=== PATIENT | male | born 1960 | race Caucasian/White ===

== ENCOUNTER → 2020-08-04 12:32 | Outpatient (BNVA) | payer OTHER, SELFPAY | PROVIDERS: PCP Internal Medicine; Visit Provider Nurse Practitioner | DX: K21.9 Gastro-esophageal reflux disease without esophagitis (principal); E66.9 Obesity, unspecified; Z79.899 Other long term (current) drug therapy | CPT/HCPCS: 99213 ==

== ENCOUNTER → 2020-09-14 11:34 | Outpatient (BNVA) | payer OTHER, SELFPAY | PROVIDERS: PCP Internal Medicine; Referring Provider Internal Medicine; Visit Provider Dietitian, Registered | DX: Z76.89 Persons encountering health services in other specified circumstances (principal) ==

== ENCOUNTER 2020-11-05 06:49 | Outpatient (REF) | payer OTHER, SELFPAY ==
[2020-11-05 07:48] LABS: Alanine Aminotransferase 25 U/L (0-40); Albumin Level 4.4 g/dL (3.5-5.0); Alkaline Phosphatase 78 U/L (39-117); Anion Gap 13 (12-20); Aspartate Amino Transferase 20 U/L (5-37); Bilirubin Total 0.7 mg/dL (0.0-1.0); Blood Urea Nitrogen 21 mg/dL (9-16); Calcium 8.9 mg/dL (8.4-10.2); Carbon Dioxide 30 mmol/L (22-29); Chloride 100 mmol/L (96-108); Cholesterol 187 mg/dL; Estimated Glomerular Filt Rate > 60; Glucose Fasting 92 mg/dL (60-99); HDL Cholesterol 35 mg/dL; LDL Cholesterol Calculated 116 mg/dl; Potassium 3.5 mmol/l (3.3-5.1); Sodium 139 mmol/L (135-145); Total Protein 6.9 g/dL (6.5-8.0); Triglycerides 180 mg/dL
[2020-11-05 08:09] LABS: TSH reflex Free T4 0.22 mIU/mL (0.32-4.0)
[2020-11-05 08:42] LABS: Free T4 (Free Thyroxine) 1.16 ng/dL (0.71-1.85)
== END 2020-11-05 06:50 | disposition home or self-care (01) ==
LOC: HO.LAB 06:49
PROVIDERS: Visit Provider Internal Medicine
DX: E78.00 Pure hypercholesterolemia, unspecified (principal); E06.3 Autoimmune thyroiditis
CPT/HCPCS: 36415; 80053; 80061; 84439; 84443

== ENCOUNTER → 2020-11-24 09:15 | Outpatient (BNVA) | payer OTHER, SELFPAY | PROVIDERS: PCP Internal Medicine; Visit Provider Nurse Practitioner | DX: Z13.89 Encounter for screening for other disorder (principal) | CPT/HCPCS: Q3014 ==

== ENCOUNTER 2020-12-06 11:13 | Outpatient (REF) | payer OTHER, SELFPAY | END 2020-12-06 11:14 | disposition home or self-care (01) | LOC: HO.LAB 11:13 | PROVIDERS: PCP Internal Medicine; Visit Provider Internal Medicine | DX: Z20.822 Contact with and (suspected) exposure to COVID-19 (principal) | CPT/HCPCS: 36415; C9803; U0003; U0005 ==

== ENCOUNTER 2020-12-28 13:34 | Outpatient (REF) | payer OTHER, SELFPAY | END 2020-12-28 13:35 | disposition home or self-care (01) | LOC: HO.LAB 13:34 | PROVIDERS: Visit Provider Internal Medicine | DX: Z20.822 Contact with and (suspected) exposure to COVID-19 (principal) | CPT/HCPCS: 36415; C9803; U0003; U0005 ==

== ENCOUNTER → 2021-01-07 10:41 | Outpatient (BNVA) | payer OTHER, SELFPAY | PROVIDERS: PCP Internal Medicine; Visit Provider Student in an Organized Health Care Education/Training Program | DX: M54.42 Lumbago with sciatica, left side (principal) | CPT/HCPCS: 99212 ==

== ENCOUNTER 2021-01-18 10:17 | Outpatient (REF) | payer OTHER, SELFPAY ==
--- NOTE | ~2021-01-18 | XR_ITS ---
EXAMINATION: XR LUMBOSACRAL SPINE CLINICAL INFORMATION: Low back pain COMPARISON: Previous x-ray July 2019 TECHNIQUE: Three views of the lumbosacral spine. FINDINGS: Bone alignment is normal. No fracture or dislocation is seen. There is multilevel degenerative spondylosis and degenerative disc disease from L1-L2 to L4-L5. There is lower lumbar spine facet arthritis. XR/XR lumbar spine 2-3V IMPRESSION: Degenerative changes.
[2021-01-18 13:08] LABS: MANUAL DIFF FLAG NO
[2021-01-18 13:19] LABS: Basophils Percent Auto 0.5 % (0-2); Eosinophils Absolute Auto 0.2 X10*3/uL (0.0-0.4); Eosinophils Percent Auto 2.8 % (0-4); Hematocrit 44.8 % (42-52); Hemoglobin 15.5 g/dl (14.0-18.0); Imm Gran Abs Auto 0.04 X10*3/uL (0.00-0.03); Imm Gran Pct Auto 0.5 % (0.0-0.4); Lymphocytes Absolute Auto 2.6 X10*3/uL (1.2-4.9); Lymphocytes Percent Auto 34.5 % (20-40); Mean Corpuscular HGB Conc 34.6 g/dl (31.0-36.0); Mean Corpuscular Volume 92.6 fL (80-98); Monocytes Absolute Auto 0.6 X10*3/uL (0.1-1.2); Monocytes Percent Auto 7.9 % (2-11); Neutrophils Absolute Auto 4.1 X10*3/uL (2.0-8.3); Neutrophils Percent Auto 53.8 % (45-73); Platelet Count 199 X10*3/uL (160-400); Red Blood Count 4.84 X10*6/uL (4.60-5.80); Red Cell Distribution Width 11.7 % (11.0-16.0); White Blood Count 7.6 X10*3/uL (4.8-10.8)
[2021-01-18 13:40] LABS: Blood Urea Nitrogen 17 mg/dL (9-16); Estimated Glomerular Filt Rate > 60
[2021-01-18 13:59] LABS: PSA,Total (Free>4and<10) 2.55 ng/mL (0.00-4.00); TSH reflex Free T4 1.15 uIU/mL (0.32-4.0)
== END 2021-01-18 10:18 | disposition home or self-care (01) ==
LOC: HO.XRAY 10:17
PROVIDERS: Nurse Practitioner; PCP Internal Medicine; Visit Provider Student in an Organized Health Care Education/Training Program
DX: M54.42 Lumbago with sciatica, left side (principal); R10.32 Left lower quadrant pain; E03.9 Hypothyroidism, unspecified; K21.9 Gastro-esophageal reflux disease without esophagitis; R14.0 Abdominal distension (gaseous); E66.9 Obesity, unspecified; K59.01 Slow transit constipation; R41.3 Other amnesia
CPT/HCPCS: 36415; 72100; 82565; 84153; 84443; 84520; 85025; 99212

== ENCOUNTER → 2021-02-02 12:45 | Outpatient (BNVA) | payer OTHER, SELFPAY | PROVIDERS: PCP Internal Medicine; Visit Provider Nurse Practitioner | DX: R10.32 Left lower quadrant pain (principal); R14.0 Abdominal distension (gaseous); R41.3 Other amnesia; K21.9 Gastro-esophageal reflux disease without esophagitis; E66.9 Obesity, unspecified; Z68.31 Body mass index [BMI] 31.0-31.9, adult; Z71.3 Dietary counseling and surveillance | CPT/HCPCS: 99212 ==

== ENCOUNTER 2021-02-22 09:33 | Outpatient (REF) | payer OTHER, SELFPAY ==
[2021-02-22 10:24] LABS: Blood Urea Nitrogen 16 mg/dL (9-16); Estimated Glomerular Filt Rate > 60
== END 2021-02-22 09:34 | disposition home or self-care (01) ==
LOC: HO.LAB 09:33
PROVIDERS: PCP Internal Medicine; Visit Provider Nurse Practitioner
DX: R10.32 Left lower quadrant pain (principal)
CPT/HCPCS: 36415; 82565; 84520

== ENCOUNTER → 2021-02-23 09:35 | Outpatient (BNVA) | payer OTHER, SELFPAY | PROVIDERS: Visit Provider Internal Medicine Endocrinology, Diabetes & Metabolism | DX: E03.8 Other specified hypothyroidism (principal); E06.3 Autoimmune thyroiditis | CPT/HCPCS: 99212 ==

== ENCOUNTER 2021-02-23 10:38 | Outpatient (REF) | payer OTHER, SELFPAY ==
[2021-02-23 13:43] LABS: Free T4 (Free Thyroxine) 1.09 ng/dL (0.71-1.85); Thyroid Stimulating Hormone 0.62 uIU/mL (0.32-4.0)
[2021-02-24 08:22] LABS: Triiodothyronine T3 Total 91 ng/dL (76-181)
== END 2021-02-23 10:39 | disposition home or self-care (01) ==
LOC: HO.10HDL 10:38
PROVIDERS: Visit Provider Internal Medicine Endocrinology, Diabetes & Metabolism
DX: E03.8 Other specified hypothyroidism (principal); E06.3 Autoimmune thyroiditis
CPT/HCPCS: 36415; 84439; 84443; 84480

== ENCOUNTER 2021-03-03 09:06 | Outpatient (REF) | payer OTHER, SELFPAY ==
--- NOTE | ~2021-03-03 | CT_ITS ---
EXAMINATION: CT ABDOMEN AND PELVIS WITH CONTRAST CLINICAL INFORMATION: Left lower quadrant pain COMPARISON: None TECHNIQUE: Multidetector volumetric images were obtained from the superior aspect of the liver through the pubic symphysis following administration 85 mL of Omnipaque 350 intravenous contrast. Sagittal and coronal reformatted images were obtained on the technologist's workstation. Oral contrast: No This CT examination was performed using dose optimization techniques as appropriate, variously including the following: *Automated exposure control *Adjustment of mA and/or kV according to patient size (this includes techniques or standardized protocols for targeted exams where dose is matched to indication/reason for exam; i.e. extremities or head) *Use of iterative reconstruction technique DLP: 85 mGy-cm FINDINGS: LUNG BASES: The lung bases are clear. The heart size is normal. There are abnormal draining vein right lower lobe on axial image 14 through 18/5. It is unchanged to previous study 11/18/2016. LIVER, GALLBLADDER, AND BILIARY TREE: The liver is normal in size, shape, and attenuation. No focal hepatic lesion or biliary ductal dilatation is present. The gallbladder is unremarkable with no evidence of radiopaque gallstones, gallbladder wall thickening, or obvious pericholecystic inflammatory changes. PANCREAS: Unremarkable. SPLEEN: Unremarkable. ADRENAL GLANDS: Unremarkable. KIDNEYS AND URETERS: The kidneys are normal in size, shape, and attenuation. No hydronephrosis, hydroureter, or calculi seen. No perinephric stranding. BLADDER: Unremarkable. GASTROINTESTINAL TRACT: There is a moderate amount of stool seen throughout the colon especially in the transverse colon without any distention or mural thickening. Oral contrast in the distal small bowel loops are noted with no distention. The stomach is nondistended. ABDOMINAL WALL: There is moderate-sized umbilical hernia containing fat. LYMPH NODES: Normal. VASCULAR: Unremarkable. PELVIC VISCERA: The prostate gland is mildly enlarged. The periprostatic fat planes are preserved. OSSEOUS STRUCTURES: There are degenerative disc changes with vacuum disc phenomena L2-L3, L3-L4 and L4-L5 disc levels. No visible fracture or lytic process seen. CT/CT abdomen pelvis w con IMPRESSION: Moderate to significant constipation. No obstruction seen. Small umbilical hernia with intraperitoneal fat. Prominent left draining vein right lower lobe. Question Small AVM. It is unchanged to previous study. No major change compared to previous study 11/18/2016
[2021-03-03] MEDS: Barium Sulfate Oral (Vanilla) 450 ML ORAL.SUSP 900 ML PO (11:27)
[2021-03-03] MEDS: iohexoL 350 MG/ML 100 ML INFUS..BTL IV (11:28)
== END 2021-03-03 09:07 | disposition home or self-care (01) ==
LOC: HO.CT 09:06
PROVIDERS: Visit Provider Nurse Practitioner
DX: R10.32 Left lower quadrant pain (principal)
CPT/HCPCS: 74177; Q9967

== ENCOUNTER → 2021-03-14 10:53 | Outpatient (BNVA) | payer OTHER, SELFPAY | PROVIDERS: PCP Internal Medicine; Visit Provider Dietitian, Registered | DX: E66.9 Obesity, unspecified (principal) | CPT/HCPCS: 97803 ==

== ENCOUNTER → 2021-03-15 08:34 | Outpatient (BNVA) | payer OTHER, SELFPAY | PROVIDERS: PCP Internal Medicine; Visit Provider Nurse Practitioner | DX: R10.32 Left lower quadrant pain (principal); Z12.11 Encounter for screening for malignant neoplasm of colon; R14.0 Abdominal distension (gaseous); R10.9 Unspecified abdominal pain; K21.9 Gastro-esophageal reflux disease without esophagitis; R41.3 Other amnesia; K59.04 Chronic idiopathic constipation | CPT/HCPCS: Q3014 ==

== ENCOUNTER 2021-03-23 12:34 | Emergency (ER) | payer OTHER, SELFPAY ==
[2021-03-23 13:53] VITALS: BP 120/87; PULSE 85; RESP 16; TEMP 36.6; O2SAT 99; BMI 29.6
--- NOTE | 2021-03-23 14:48 | ED.BACK ---
HPI - Back Pain/Injury General Chief Complaint: Back Pain/Injury Stated Complaint: NECK PAIN Time Seen by Provider: 03/23/21 14:48 History of Present Illness HPI Narrative: Patient complains of upper back pain and lower back pain worst when he is gardening and bending and standing up, no numbness no weakness no tingling Second complaint is for a long time he has felt mildly dizzy when he stands up quickly and his doctor has advised him to stand up slowly he is not dizzy now and denies any chest pain or shortness of breath he has acted had any fainting he has no feeling of movement or vertigo and he never feels like he will faint Related Data Home Medications Medication Instructions Recorded Confirmed loratadine 10 mg tablet 10 mg PO DAILY 12/07/20 04/01/21 pravastatin 20 mg tablet 20 mg PO DAILY 01/07/21 04/01/21 betamethasone dipropionate 0.05 % 1 appl TOPICAL TID PRN 02/02/21 04/01/21 topical cream Previous Rx's Medication Instructions Recorded terbinafine HCl 250 mg tablet 250 mg PO DAILY 90 Days #90 tab 11/09/20 omeprazole 20 mg capsule,delayed 20 mg PO DAILY 30 Days #30 cap 11/24/20 release hydrochlorothiazide 25 mg tablet 25 mg PO DAILY 90 Days #90 tab 11/26/20 clotrimazole 1 % topical cream 1 appl TOPICAL BID 14 Days #30 g 12/07/20 lidocaine 3 %-hydrocortisone 0.5 % 1 appl GA BID 30 Days #98 g 12/07/20 rectal cream sildenafil 50 mg tablet 50 mg PO DAILY PRN 3 Days #3 tab 12/07/20 dicyclomine 20 mg tablet 20 mg PO TID 30 Days #90 tab 12/29/20 docusate sodium 100 mg capsule 100 mg PO DAILY 30 Days #30 cap 01/18/21 gabapentin 300 mg capsule 300 mg PO BEDTIME #30 cap 02/09/21 levothyroxine 100 mcg tablet 100 mcg PO DAILY 90 Days #90 tab 02/23/21 zvmffj-cccsbnhg-imdepot 1 cap PO QID 30 Days #120 cap 03/08/21 24,000-76,000-120,000 unit capsule,delayed rel simethicone 180 mg capsule 180 mg PO QID 30 Days #120 cap 03/08/21 bisacodyl 5 mg tablet,delayed 10 mg PO BEDTIME 2 Days #4 tab 03/15/21 release peg 3350-electrolytes 236 240 ml PO Q10M 1 Days #4000 ml 03/15/21 gram-22.74 gram-6.74 gram-5.86 gram solution plecanatide 3 mg tablet 3 mg PO DAILY 30 Days #30 tab 03/15/21 cyclobenzaprine 5 mg PO TID PRN #14 tab 03/23/21 naproxen [Naprosyn] 500 mg PO BID PRN #14 tab 03/23/21 escitalopram oxalate 10 mg tablet 10 mg PO DAILY 90 Days #90 tab 03/29/21 Allergies Allergy/AdvReac Type Severity Reaction Status Date / Time amlodipine Allergy Intermediate leg edema Verified 04/06/21 11:50 carisoprodol [From SOMA] Allergy Intermediate twitching Verified 04/06/21 11:50 jennyfer inhibitors AdvReac Intermediate cough, Verified 04/06/21 11:50 anxiety Review of Systems Review of Systems: Positive for upper back pain Negatives are no fainting no feeling faint no headache no numbness weakness or tingling no changes to bowel or bladder no chest pain no palpitations no shortness of breath no abdominal pain no nausea vomiting or diarrhea no skin rash no numbness or weakness no confusion Yes all other systems are reviewed and are negative PMFSH Past Medical History Source: nursing notes reviewed Medical History (Updated 04/05/21 @ 09:39 by Rosaura Jameson) Depression with anxiety Erectile dysfunction Essential hypertension GERD (gastroesophageal reflux disease) Hypothyroidism Neck pain Obesity Onychomycosis Scoliosis Umbilical hernia Surgical History (Updated 04/01/21 @ 10:31 by Susu Luna) Hx of colonoscopy (~2009) Status post excision of lipoma Family History Family History Father HTN (hypertension) Mother HTN (hypertension) Hypercholesteremia Family/Other HTN (hypertension) Thyroid disease Diabetes FH: mental illness Daughter Thyroid disease Son No problems noted. Brother Substance abuse Social History Social History Household Members: None Alcohol intake: current Alcohol intake frequency: a few times a month Alcohol type: beer Patient Tobacco Use Status: Never used Tobacco e-Cigarette/Vaping Use: Never Used Second Hand Smoke Exposure: No Physical Exam Vital Signs: Vital Signs: Last Vital Signs Temp 97.8 F 03/23/21 13:53 Pulse 85 03/23/21 13:53 Resp 16 03/23/21 13:53 BP 120/87 03/23/21 13:53 Pulse Ox 99 03/23/21 13:53 Body Mass Index 29.6 General appearance is no acute distress The head is normocephalic atraumatic Neck is supple and nontender The chest is clear to auscultation bilateral Heart no murmur Abdomen soft nontender The back there is bilateral trapezius as well as bilateral upper soft tissue paraspinal back pain reproducible with movement, skin is normal no rashes There is no CVA tenderness there is no focal bony tenderness Extremities is full range of motion x4 Skin no rash Neuro no gross motor or sensory deficit, A&O x3, gait and balance are normal, speech both expression and understanding are normal Course Course Course Narrative: Patient with 2 complaints 1 is upper back pain he is prescribed analgesic and muscle relaxer and will follow with his doctor for further evaluation and possible physical therapy Longstanding mild dizziness when he stands up too quickly he is advised to be well-hydrated and to stand up slowly and if he is dizzy sit back down In the ER he is not dizzy and he has no dizziness on standing, he says this occurs mostly when he was gardening outside and is likely from mild vasovagal symptoms or dehydration Discharge Plan Discharge Clinical Impression: Back pain Patient Disposition: Home, Self-Care Prescriptions: New naproxen [Naprosyn] 500 mg tablet 500 mg PO BID PRN (Reason: pain) Qty: 14 RF: 0 cyclobenzaprine 5 mg tablet 5 mg PO TID PRN (Reason: muscle spasm) Qty: 14 RF: 0 No Action hydrochlorothiazide 25 mg tablet 25 mg PO DAILY 90 Days Qty: 90 RF: 3 dicyclomine 20 mg tablet 20 mg PO TID 30 Days Qty: 90 RF: 1 gabapentin 300 mg capsule 300 mg PO BEDTIME Qty: 30 RF: 3 loratadine 10 mg tablet 10 mg PO DAILY RF: 0 clotrimazole [Itch Relief (clotrimazole)] 1 % cream 1 appl topical BID 14 Days Qty: 30 RF: 2 lidocaine HCl-hydrocortison ac 3-0.5 % cream 1 appl GA BID 30 Days Qty: 98 RF: 3 sildenafil 50 mg tablet 50 mg PO DAILY PRN (Reason: sexual activity) 3 Days Qty: 3 RF: 3 terbinafine HCl 250 mg tablet 250 mg PO DAILY 90 Days Qty: 90 RF: 0 simethicone 180 mg capsule 180 mg PO QID 30 Days Qty: 120 RF: 3 Creon 24,000-76,000 -120,000 unit capsule,delayed release(DR/EC) 1 cap PO QID 30 Days Qty: 120 RF: 4 escitalopram oxalate 10 mg tablet 10 mg PO DAILY 90 Days Qty: 90 RF: 1 betamethasone dipropionate 0.05 % cream 1 appl topical TID PRN (Reason: Itching) RF: 0 docusate sodium [Colace] 100 mg capsule 100 mg PO DAILY 30 Days Qty: 30 RF: 3 pravastatin 20 mg tablet 20 mg PO DAILY RF: 0 Trulance 3 mg tablet 3 mg PO DAILY 30 Days Qty: 30 RF: 6 bisacodyl [Dulcolax (bisacodyl)] 5 mg tablet,delayed release (DR/EC) 10 mg PO BEDTIME 2 Days Qty: 4 RF: 0 peg 3350-electrolytes [Golytely] 236-22.74-6.74 -5.86 gram recon soln 240 ml PO Q10M 1 Days Qty: 4000 RF: 0 omeprazole 20 mg capsule,delayed release(DR/EC) 20 mg PO DAILY 30 Days Qty: 30 RF: 6 levothyroxine 100 mcg tablet 100 mcg PO DAILY 90 Days Qty: 90 RF: 2 Interventions: ED Discharge Assessment Last Done: 03/23/21 16:08 Discharge Date/Time: 03/23/21 16:09
== END 2021-03-23 16:09 | disposition home or self-care (01) ==
PROVIDERS: Emergency Provider Emergency Medicine; PCP Internal Medicine
DX: M54.6 Pain in thoracic spine (principal); M54.5 Low back pain; I10 Essential (primary) hypertension; M41.9 Scoliosis, unspecified
CPT/HCPCS: 99283

== ENCOUNTER 2021-04-06 10:46 | Day surgery (SDC) | payer OTHER, SELFPAY ==
[2021-04-01 10:34] VITALS: BMI 29.7
--- NOTE | 2021-04-05 09:37 | P.CONAN_ITS ---
Documented by User: Rosaura Jameson 04/05/21 09:40 HPI - Anesthesia Eval Consult details Narrative: 60yo M for Colonoscopy PMFSH Active Problems Active Problems: All Active Problems (Updated 03/29/21 @ 14:52 by Cindy Llanes MD) GERD (gastroesophageal reflux disease) (Acute) Obesity (Acute) Abdominal cramping (Acute) Lumbago with sciatica, left side (Acute) Abdominal bloating (Acute) LLQ pain (Acute) Uncompensated short term memory deficit (Acute) Chronic idiopathic constipation (Acute) Colon cancer screening (Acute) Depression with anxiety (Acute) Neck pain (Acute) Umbilical hernia (Acute) Erectile dysfunction (Acute) Onychomycosis (Acute) Essential hypertension (Acute) Hypothyroidism (Acute) Past Medical History Medical History (Updated 04/05/21 @ 09:39 by Rosauar Jameson) Depression with anxiety Erectile dysfunction Essential hypertension GERD (gastroesophageal reflux disease) Hypothyroidism Neck pain Obesity Onychomycosis Scoliosis Umbilical hernia Family History Family History Father HTN (hypertension) Mother HTN (hypertension) Hypercholesteremia Family/Other HTN (hypertension) Thyroid disease Diabetes FH: mental illness Daughter Thyroid disease Son No problems noted. Brother Substance abuse Surgical History Surgical History (Updated 04/01/21 @ 10:31 by Susu Luna) Hx of colonoscopy (~2009) Status post excision of lipoma Social History Social History Household Members: None Alcohol intake: current Alcohol intake frequency: a few times a month Alcohol type: beer Patient Tobacco Use Status: Never used Tobacco e-Cigarette/Vaping Use: Never Used Second Hand Smoke Exposure: No Advance Directives: No Advance Directives Information Provided: Yes Meds Allergies Allergy/AdvReac Type Severity Reaction Status Date / Time amlodipine Allergy Intermediate leg edema Verified 04/06/21 11:50 carisoprodol [From SOMA] Allergy Intermediate twitching Verified 04/06/21 11:50 jennyfer inhibitors AdvReac Intermediate cough, Verified 04/06/21 11:50 anxiety Home Medications Medication Instructions Recorded Confirmed Last Taken Type loratadine 10 mg tablet 10 mg PO DAILY 12/07/20 04/01/21 Unknown History pravastatin 20 mg tablet 20 mg PO DAILY 01/07/21 04/01/21 Unknown History betamethasone dipropionate 0.05 % 1 appl TOPICAL TID PRN 02/02/21 04/01/21 Unknown History topical cream Exam Exam Date and Time: April 05, 2021 0937 Height,Weight and Vital Signs: Height 5 ft 7 in Weight 86.183 kg Pertinent Lab Results Pertinent Lab Results: Laboratory Tests 11/05/20 01/18/21 02/22/21 07:00 12:42 09:43 WBC 7.6 Hgb 15.5 Hct 44.8 Plt Count 199 Sodium 139 Potassium 3.5 Chloride 100 Carbon Dioxide 30 H BUN 16 Creatinine 1.15 Assessment and Plan Assessment Anesthesia Assessment: Chart Reviewed Documented by User: Kendra Coyle 04/06/21 13:20 [facility] Past Medical History Medical History (Updated 04/05/21 @ 09:39 by Rosaura Jameson) Depression with anxiety Erectile dysfunction Essential hypertension GERD (gastroesophageal reflux disease) Hypothyroidism Neck pain Obesity Onychomycosis Scoliosis Umbilical hernia Family History Family History Father HTN (hypertension) Mother HTN (hypertension) Hypercholesteremia Family/Other HTN (hypertension) Thyroid disease Diabetes FH: mental illness Daughter Thyroid disease Son No problems noted. Brother Substance abuse Surgical History Surgical History (Updated 04/01/21 @ 10:31 by Susu Luna) Hx of colonoscopy (~2009) Status post excision of lipoma Social History Social History Household Members: None Alcohol intake: current Alcohol intake frequency: a few times a month Alcohol type: beer Patient Tobacco Use Status: Never used Tobacco e-Cigarette/Vaping Use: Never Used Second Hand Smoke Exposure: No Advance Directives: No Advance Directives Information Provided: Yes Meds Allergies Allergy/AdvReac Type Severity Reaction Status Date / Time amlodipine Allergy Intermediate leg edema Verified 04/06/21 11:50 carisoprodol [From SOMA] Allergy Intermediate twitching Verified 04/06/21 11:50 jennyfer inhibitors AdvReac Intermediate cough, Verified 04/06/21 11:50 anxiety Home Medications Medication Instructions Recorded Confirmed Last Taken Type loratadine 10 mg tablet 10 mg PO DAILY 12/07/20 04/01/21 Unknown History pravastatin 20 mg tablet 20 mg PO DAILY 01/07/21 04/01/21 Unknown History betamethasone dipropionate 0.05 % 1 appl TOPICAL TID PRN 02/02/21 04/01/21 Unknown History topical cream Exam Airway Mallampati Class: II (Missing couple teeth) TM Dist: >3cm Neck ROM: Full Heart: rrr Lungs: cta Assessment and Plan Assessment Anesthesia Assessment: Anesthesia Plan Discussed and Chart Reviewed Final Anesthetic Review NPO: Yes ASA Class: II Final Preanesthetic Review: No Changes in Pt Med Stat and Consent Obtained/ Reviewed Patient Risk: Intermediate Procedure Risk: Intermediate Anesthetic Plan Anesthetic Plan: GA Disposition: Standard PACU
--- NOTE | 2021-04-06 11:37 | MHC.SHP ---
Pre-Procedural Eval Section B Chief Complaint: Screening Relevant Family History (Specify if Yes): No Relevant Social History: None Present Medications: see Short Stay Collaborative assessment Medical History: Significant History ( Depression with anxiety Erectile dysfunction Essential hypertension GERD (gastroesophageal reflux disease) Hypothyroidism Neck pain Obesity Onychomycosis Scoliosis Umbilical hernia) History of Previous Operations: Relevant previous surgery/procedure and date(s) (lipoma removal) Allergies: Allergies Allergy/AdvReac Type Severity Reaction Status Date / Time amlodipine Allergy Intermediate leg edema Verified 03/29/21 13:13 carisoprodol [From SOMA] Allergy Intermediate twitching Verified 03/29/21 13:13 jennyfer inhibitors AdvReac Intermediate cough, Verified 04/01/21 10:26 anxiety Review of Systems Sugical H&P ROS: Negative: Constitution, Cardiovascular, Respiratory, Neurological, Psychiatric, Hem-Onc, Allergic/Immunologic, Gastrointestinal, Genitourinary, Musculoskeletal, Integumentary, Endocrine and Eyes/Ears/Nose/Throat Exam Surgical H&P Exam: Normal: HEENT, Normal: Heart, Normal: Lungs, Normal: Extremities, Normal: Abdomen, Normal: Skin and Normal: Neurological Plan Diagnosis/Plan: Unchanged I have reviewed the history and physical and performed a pertinent physical examination on my patient. No changes have occurred unless specified.
[2021-04-06 11:46] VITALS: BP 141/83; PULSE 88; RESP 18; TEMP 36.8; O2SAT 97
[2021-04-06] MEDS: Lactated Ringers 1,000 ML 100 ML IVCONT (11:54)
--- NOTE | 2021-04-06 13:02 | PM.OP ---
Brief Operative Note Date of Service: 04/06/21 Pre-op diagnosis: colon screening Post-op diagnosis: same Procedure: see op note Surgeon: Constantine Edward MD Anesthesia: MAC Was an Home Theatre Technician used for this Procedure?: No Estimated blood loss (mL): 0 Condition: stable Disposition: PACU
--- NOTE | 2021-04-06 13:03 | W.PM.OPN ---
Operative Note Operative Note Date of Service: 04/06/21 Narrative: Operative Information Procedure Description: Colonoscopy COLONOSCOPY Instrument: Olympus variable stiffness pediatric scope 190L Colonoscopy Monitoring: Vital signs and clinical assessment, continuous EKG monitoring, Pulse oximetry, Carbon Dioxide monitoring and blood pressure monitoring were done throughout the procedure. Colon withdrawal time was 32 minutes. Procedure: The patient was placed in the left lateral decubitis position and pre-procedure medications were administered. After a digital rectal examination of the ano-rectum, the video colonoscope was inserted into the rectum and advanced through the colon to the cecum/TI. The colonoscope was slowly withdrawn in a retrograde panoramic fashion and the colon mucosa was carefully examined including a retroflexed view of the rectum. Findings and interventions are described below. Procedure Difficulty:easy Findings: Terminal Ileum-normal Cecum:normal Ascending Colon: x 3 sessile polyps only seen on retroflexion noted, largest measured about 15 mm and removed piece meal with combination of hot and cold snare polypectomy,Tthe other smaller polyps about 10 mm removed with cold snare. Transverse Colon -normal Descending Colon:normal Sigmoid Colon: normal Rectum: Retroflexion with moderate sized internal hemorrhoids, grade II, x 2 sessile polyps 8-10 mm removed with forceps Anorectum - normal Colon preparation: Speculator Bowel Preparation Scale Right colon; 2 Transverse colon: 3 Left colon; 3 (0 = Unprepared colon segment with mucosa not seen due to solid stool that cannot be cleared. 1 = Portion of mucosa of the colon segment seen, but other areas of the colon segment not well seen due to staining, residual stool and/or opaque liquid. 2 = Minor amount of residual staining, small fragments of stool and/or opaque liquid, but mucosa of colon segment seen well. 3 = Entire mucosa of colon segment seen well with no residual staining, small fragments of stool or opaque liquid) Impression and Post Procedure Diagnosis: polyps internal hemorrhoids Plan: High fiber diet leaflet Avoid straining at stool, epsom salts and sitz bath, anusol supps or cream as needed Repeat Colonoscopy in 1-2 years or earlier if clinically indicated Above findings were reviewed with the patient and relevant handouts were provided if indicated.
[2021-04-06 13:56] VITALS: BP 102/61; PULSE 74; RESP 16; TEMP 36.6; O2SAT 95
[2021-04-06 14:11] VITALS: BP 124/84; PULSE 75; RESP 16; O2SAT 97
== END 2021-04-06 15:30 | disposition home or self-care (01) ==
PROVIDERS: PCP Internal Medicine; Visit Provider Internal Medicine Gastroenterology
PROC: 0DJD8ZZ Inspection of Lower Intestinal Tract, Via Natural or Artificial Opening Endoscopic (ICD-10-PCS; CPT 45378; principal; 2021-04-06 13:10)
DX: Z12.11 Encounter for screening for malignant neoplasm of colon (principal); D12.2 Benign neoplasm of ascending colon; D12.8 Benign neoplasm of rectum; K64.1 Second degree hemorrhoids; K59.09 Other constipation; I10 Essential (primary) hypertension; Z79.899 Other long term (current) drug therapy; Z88.8 Allergy status to other drugs, medicaments and biological substances
CPT/HCPCS: 45385; 45380; 88305

== ENCOUNTER → 2021-04-28 15:56 | Outpatient (BNVA) | payer OTHER, SELFPAY | PROVIDERS: Visit Provider Nurse Practitioner | DX: D36.9 Benign neoplasm, unspecified site (principal); R10.32 Left lower quadrant pain; R14.0 Abdominal distension (gaseous); R41.3 Other amnesia; K21.9 Gastro-esophageal reflux disease without esophagitis; K59.04 Chronic idiopathic constipation | CPT/HCPCS: 99212 ==

== ENCOUNTER → 2021-05-26 08:38 | Outpatient (BNVA) | payer OTHER, SELFPAY | PROVIDERS: PCP Internal Medicine; Visit Provider Nurse Practitioner | CPT/HCPCS: Q3014 ==

== ENCOUNTER 2021-06-02 10:00 | Outpatient (RCR) | payer OTHER, SELFPAY ==
--- NOTE | 2021-05-12 12:45 | MHC.PT.EP ---
[facility] [place] Office [place] Office [place] Office [address] Huan Riggins [address] [phone] F: [phone] F: [phone] F: [phone] F: [phone] Physical Therapy Plan of Care Date of Evaluation: Date of Surgery: N/A Diagnosis: cervicalgia Assessment: 60 y/o M referred for cervicalgia presents with s/sx consistent with postural dysfunction leading to increased forward head posture. Pt complains of pain and difficulty with moving his head in all directions, completing gardening tasks including raking, and sleeping. Examination shows limited cervical ROM, increased pain and sx with R cervical rotation and lateral flexion, decreased shoulder abduction L>R AROM, and decreased strength of scapular muscles. Recommend PT 2x/week for 5 weeks to address impairments, implement HEP, and optimize functional mobility. Frequency and Duration: The patient will be seen 2x/week for 5 weeks Short Term Goals: 2 weeks: 1. I with HEP 2. Pt will demonstrate increased cervical ROM in all directions by >5 degrees with <3/10 pain Retirement Goals: 5 weeks: 1. I with HEP and self-management of sx 2. Pt will be able to garden for >1 hour with <3/10 pain 3. Pt will report sleeping through night with <3/10 pain Treatment Plan: Modalities to reduce pain, spasms and effusion. Manual therapy to restore motion and function. Therapeutic exercise to improve strength and flexibility. Neuromuscular re-education for posture and balance. Therapeutic activities to return to functional activities of daily living. Electronically signed by: Angely Melendez PT Please sign and return to therapist. Thank you for your referral.
--- NOTE | 2021-07-06 11:28 | MHC.PT.DC ---
[facility] [place] Office [place] Office [place] Office [address] Huan Riggins [address] [phone] F: [phone] F: [phone] F: [phone] F: [phone] Physical Therapy Discharge Report Diagnosis: cervicalgia Date of Surgery: N/A Date of Evaluation: 05/12/21 Date of Discharge: 07/06/21 Treatments to Date: 3 Cancellations to Date: 0 No Shows to Date: 0 Discharge Status: Improved Function Independent with HEP Discharge Summary: Pt reports feeling better and would like to be d/c. Reviewed HEP and cervical AROM WFL. D/c at this time. Electronically signed by: Angely Melendez PT Please sign and return to therapist. Thank you for your referral.
== END 2021-07-06 11:28 | disposition home or self-care (01) ==
LOC: HO.PT 10:00
PROVIDERS: PCP Internal Medicine; Visit Provider Internal Medicine
DX: M54.2 Cervicalgia (principal)
CPT/HCPCS: 97110; 97140; 97161

== ENCOUNTER → 2021-07-12 12:27 | Outpatient (BNVA) | payer OTHER, SELFPAY | PROVIDERS: Visit Provider Nurse Practitioner Family | DX: M54.42 Lumbago with sciatica, left side (principal); R21 Rash and other nonspecific skin eruption | CPT/HCPCS: 99212 ==

== ENCOUNTER 2021-07-20 18:41 | Emergency (ER) | payer OTHER, SELFPAY ==
[2021-07-20 20:01] VITALS: BP 121/73; PULSE 86; RESP 16; TEMP 36.8; O2SAT 98; BMI 29.2
--- NOTE | 2021-07-20 20:45 | ED.GENADULT ---
HPI - General Adult General Chief complaint: General Medical Stated complaint: post op bleeding Time Seen by Provider: 07/20/21 20:19 Source: patient Mode of arrival: ambulatory Limitations: no limitations History of Present Illness HPI narrative: Patient comes to emergency room complaining of postop bleeding. Patient had a circumcision yesterday at [facility]. Patient states that he has not removed the bandage that was originally placed after the surgery. Patient states that his symone is stained with blood. Patient denies significant pain. Denies dysuria Related Data Home Medications Medication Instructions Recorded Confirmed loratadine 10 mg tablet 10 mg PO DAILY 12/07/20 07/12/21 pravastatin 20 mg tablet 20 mg PO DAILY 01/07/21 07/12/21 Previous Rx's Medication Instructions Recorded hydrochlorothiazide 25 mg tablet 25 mg PO DAILY 90 Days #90 tab 11/26/20 lidocaine 3 %-hydrocortisone 0.5 % 1 appl TX BID 30 Days #98 g 12/07/20 rectal cream docusate sodium 100 mg capsule 100 mg PO DAILY 30 Days #30 cap 01/18/21 (Colace) gabapentin 300 mg capsule 300 mg PO BEDTIME #30 cap 02/09/21 levothyroxine 100 mcg tablet 100 mcg PO DAILY 90 Days #90 tab 02/23/21 plecanatide 3 mg tablet (Trulance) 3 mg PO DAILY 30 Days #30 tab 03/15/21 cyclobenzaprine 5 mg tablet 5 mg PO TID PRN #14 tab 03/23/21 naproxen 500 mg tablet (Naprosyn) 500 mg PO BID PRN #14 tab 03/23/21 escitalopram oxalate 10 mg tablet 10 mg PO DAILY 90 Days #90 tab 03/29/21 dicyclomine 20 mg tablet 20 mg PO TID 30 Days #90 tab 05/26/21 ziaevr-cmklubra-deprxkj 1 cap PO QID 30 Days #120 cap 05/26/21 24,000-76,000-120,000 unit capsule,delayed rel (Creon) omeprazole 20 mg capsule,delayed 20 mg PO DAILY 30 Days #30 cap 05/26/21 release simethicone 180 mg capsule 180 mg PO QID 30 Days #120 cap 05/26/21 sildenafil 50 mg tablet 50 mg PO DAILY PRN 3 Days #3 tab 07/06/21 valacyclovir 1 gram tablet 1,000 mg PO TID 10 Days #30 tab 07/06/21 betamethasone dipropionate 0.05 % 1 appl TOPICAL TID PRN 14 Days #15 07/12/21 topical cream g tobramycin 0.3 % eye drops 1 drp OPHTHALMIC (EYE) Q4H 7 Days 07/14/21 #5 ml Allergies Allergy/AdvReac Type Severity Reaction Status Date / Time amlodipine Allergy Intermediate leg edema Verified 07/20/21 20:01 carisoprodol [From SOMA] Allergy Intermediate twitching Verified 07/20/21 20:01 jennyfer inhibitors AdvReac Intermediate cough, Verified 07/20/21 20:01 anxiety Review of Systems Review of Systems: Constitutional : No Weight loss, No Fever, No Chills, No Night Sweats, No Fatigue, No Malaise ENT/Mouth : No Hearing loss, No Ear Pain, No Nasal Congestion, No Sinus Pain, No Hoarseness, No sore throat, No Rhinorrhea, No Swallowing Difficulty Eyes: No Eye Pain, No Swelling, No Redness, No Foreign Body, No Discharge, No Vision Changes Cardiovascular : No Chest Pain, No SOB, No Dyspnea on Exertion, No Orthopnea, No Edema, No Palpitations Respiratory : No Cough, No Sputum, No Wheezing, No Smoke Exposure, No Dyspnea Gastrointestinal : No Nausea, No Vomiting, No Diarrhea, No Constipation, No abdominal Pain, No Hematochezia, No Melena Genitourinary : No dysuria. Complaining of postop bleeding from the circumcision site Musculoskeletal : No joint pain, No Myalgias, No Joint Swelling Skin : No Skin Lesions, No rash Neuro : No Weakness, No Numbness, No Paresthesias, No Loss of Consciousness, No Dizziness, No Headache Psych : No Anxiety/Panic, No Depression, No SI/HI/AH/VH, No Social Issues, Heme/Lymph: No Bruising, No Bleeding,No Lymphadenopathy Endocrine : No Polyuria, No Polydipsia, No Temperature Intolerance PMFSH Past Medical History Medical History Depression with anxiety Erectile dysfunction Essential hypertension EMILY (generalized anxiety disorder) GERD (gastroesophageal reflux disease) HSV (herpes simplex virus) anogenital infection Hypothyroidism Mild recurrent major depression Neck pain Obesity Onychomycosis Scoliosis Tubular adenoma of colon Umbilical hernia Surgical History Hx of colonoscopy (~2009) Status post excision of lipoma Family History Family History Father HTN (hypertension) Mother HTN (hypertension) Hypercholesteremia Family/Other HTN (hypertension) Thyroid disease Diabetes FH: mental illness Daughter Thyroid disease Son No problems noted. Brother Substance abuse Social History Social History Household Members: None Housing: Apartment Alcohol intake: current Alcohol intake frequency: a few times a month Alcohol type: beer Patient Tobacco Use Status: Never used Tobacco e-Cigarette/Vaping Use: Never Used Second Hand Smoke Exposure: No Advance Directives: No Advance Directives Information Provided: No service: No Current occupational status: disabled Physical Exam Vital Signs: Vital Signs: Last Vital Signs Temp 98.2 F 07/20/21 20:01 Pulse 86 07/20/21 20:01 Resp 16 07/20/21 20:01 BP 121/73 07/20/21 20:01 Pulse Ox 98 07/20/21 20:01 Body Mass Index 29.2 Const: Other: Appearance: Alert. Oriented X3. No acute distress. Eyes: Pupils equal, round and reactive to light. ENT: Pharynx normal. Neck: Normal inspection. Neck supple. No lymph nodes noted. No crepitus CVS: Normal heart rate and rhythm. Pulses normal. Normal S1 and S2 Respiratory: No respiratory distress. Breath sounds normal. No Wheezing. No rales Abdomen: Soft and nontender. No rigidity. No distention. : Stitches are placed around the glans, clean, scant bleeding. No suspicion of infection Skin: Skin warm and dry. Normal skin color. Normal skin turgor. Extremities: No lower extremity edema. No lower extremity edema. No Lacerations. No Rash Neuro: Oriented X 3. No motor deficit. No sensory deficit. Moving all extermities. No slurred speech. Course Course Course Narrative: I discussed with the patient that he has normal postop scant bleeding. The surgical site looks clean, his dressing was changed with Xeroform and gauze. Patient was supposed to call today his urologist to schedule his follow-appointment. Patient was reminded to call tomorrow. Discharge Plan Discharge Clinical Impression: Post-op bleeding Qualifiers: Surgical complication system/body Area: genitourinary Procedure type: genitourinary Qualified Code(s): N99.820 - Postprocedural hemorrhage of a genitourinary system organ or structure following a genitourinary system procedure Patient Disposition: Home, Self-Care Instructions: Postoperative Bleeding (ED) Additional Instructions: Please follow-up with your urologist and with your primary care physician tomorrow. If you have any worsening or new symptoms, please return to the emergency room or call 911 Prescriptions: No Action hydrochlorothiazide 25 mg tablet 25 mg PO DAILY 90 Days Qty: 90 RF: 3 gabapentin 300 mg capsule 300 mg PO BEDTIME Qty: 30 RF: 3 betamethasone dipropionate 0.05 % cream 1 appl topical TID PRN (Reason: Itching) 14 Days Qty: 15 RF: 1 tobramycin 0.3 % drops 1 drp ophthalmic (eye) Q4H 7 Days Qty: 5 RF: 0 naproxen [Naprosyn] 500 mg tablet 500 mg PO BID PRN (Reason: pain) Qty: 14 RF: 0 cyclobenzaprine 5 mg tablet 5 mg PO TID PRN (Reason: muscle spasm) Qty: 14 RF: 0 loratadine 10 mg tablet 10 mg PO DAILY RF: 0 lidocaine HCl-hydrocortison ac 3-0.5 % cream 1 appl TX BID 30 Days Qty: 98 RF: 3 valacyclovir 1 gram tablet 1,000 mg PO TID 10 Days Qty: 30 RF: 2 sildenafil 50 mg tablet 50 mg PO DAILY PRN (Reason: sexual activity) 3 Days Qty: 3 RF: 3 escitalopram oxalate 10 mg tablet 10 mg PO DAILY 90 Days Qty: 90 RF: 1 docusate sodium [Colace] 100 mg capsule 100 mg PO DAILY 30 Days Qty: 30 RF: 3 pravastatin 20 mg tablet 20 mg PO DAILY RF: 0 Trulance 3 mg tablet 3 mg PO DAILY 30 Days Qty: 30 RF: 6 omeprazole 20 mg capsule,delayed release(DR/EC) 20 mg PO DAILY 30 Days Qty: 30 RF: 6 simethicone 180 mg capsule 180 mg PO QID 30 Days Qty: 120 RF: 6 Creon 24,000-76,000 -120,000 unit capsule,delayed release(DR/EC) 1 cap PO QID 30 Days Qty: 120 RF: 6 dicyclomine 20 mg tablet 20 mg PO TID 30 Days Qty: 90 RF: 2 levothyroxine 100 mcg tablet 100 mcg PO DAILY 90 Days Qty: 90 RF: 2
== END 2021-07-20 21:07 | disposition home or self-care (01) ==
PROVIDERS: Emergency Provider Emergency Medicine; PCP Internal Medicine
DX: N99.820 Postprocedural hemorrhage of a genitourinary system organ or structure following a genitourinary system procedure (principal); Z79.899 Other long term (current) drug therapy
CPT/HCPCS: 99283

== ENCOUNTER 2021-09-07 08:20 | Outpatient (REF) | payer OTHER, SELFPAY ==
[2021-09-07 08:53] LABS: COVID-19 Test Negative (Negative)
== END 2021-09-07 08:21 | disposition home or self-care (01) ==
LOC: HO.LAB 08:20
PROVIDERS: PCP Internal Medicine; Visit Provider Internal Medicine
DX: Z20.822 Contact with and (suspected) exposure to COVID-19 (principal)
CPT/HCPCS: 36415; 87635; C9803

== ENCOUNTER → 2021-09-23 09:03 | Outpatient (BNVA) | payer OTHER, SELFPAY | PROVIDERS: PCP Internal Medicine; Visit Provider Dietitian, Registered | DX: E66.3 Overweight (principal); Z68.29 Body mass index [BMI] 29.0-29.9, adult | CPT/HCPCS: 97803 ==

== ENCOUNTER 2021-11-14 07:48 | Outpatient (REF) | payer OTHER, SELFPAY ==
[2021-11-14 08:58] LABS: Alanine Aminotransferase 27 U/L (0-40); Albumin Level 4.5 g/dL (3.5-5.0); Alkaline Phosphatase 82 U/L (39-117); Anion Gap 12 (12-20); Aspartate Amino Transferase 23 U/L (5-37); Bilirubin Total 0.8 mg/dL (0.0-1.0); Blood Urea Nitrogen 22 mg/dL (9-16); Calcium 9.7 mg/dL (8.4-10.2); Carbon Dioxide 32 mmol/L (22-29); Chloride 100 mmol/L (96-108); Cholesterol 180 mg/dL; Estimated Glomerular Filt Rate 58; Glucose Fasting 92 mg/dL (60-99); HDL Cholesterol 36 mg/dL; LDL Cholesterol Calculated 118 mg/dl; Sodium 140 mmol/L (135-145); Total Protein 7.2 g/dL (6.5-8.0); Triglycerides 130 mg/dL
== END 2021-11-14 07:49 | disposition home or self-care (01) ==
LOC: HO.LAB 07:48
PROVIDERS: PCP Internal Medicine; Visit Provider Internal Medicine
DX: K21.9 Gastro-esophageal reflux disease without esophagitis (principal); E78.5 Hyperlipidemia, unspecified
CPT/HCPCS: 36415; 80053; 80061

== ENCOUNTER 2021-11-16 09:59 | Outpatient (REF) | payer OTHER, SELFPAY ==
[2021-11-16 10:36] LABS: Binax Now Covid-19 Ag Negative (Negative)
[2021-11-16 10:37] LABS: Binax Internal Control QC Valid
== END 2021-11-16 10:00 | disposition home or self-care (01) ==
LOC: HO.LAB 09:59
PROVIDERS: Visit Provider Internal Medicine
DX: Z20.822 Contact with and (suspected) exposure to COVID-19 (principal)
CPT/HCPCS: C9803

== ENCOUNTER 2021-11-25 08:52 | Outpatient (REF) | payer OTHER, SELFPAY ==
--- NOTE | ~2021-11-25 | US_ITS ---
EXAMINATION: US CHEST CLINICAL INFORMATION: Localized swelling, mass and lump COMPARISON: None TECHNIQUE: Grayscale and color imaging of the right back using a linear transducer FINDINGS: No abnormality is identified by ultrasound. No solid or cystic mass or fluid collection is seen. US/US chest IMPRESSION: No abnormality seen by ultrasound.
== END 2021-11-25 08:53 | disposition home or self-care (01) ==
LOC: HO.HMGCX 08:52
PROVIDERS: Visit Provider Nurse Practitioner Family
DX: R22.2 Localized swelling, mass and lump, trunk (principal)
CPT/HCPCS: 76604

== ENCOUNTER → 2021-11-28 13:21 | Outpatient (BNVA) | payer OTHER, SELFPAY | PROVIDERS: Referring Provider Internal Medicine; Visit Provider Nurse Practitioner | DX: K21.9 Gastro-esophageal reflux disease without esophagitis (principal); K59.04 Chronic idiopathic constipation; D36.9 Benign neoplasm, unspecified site | CPT/HCPCS: 99212 ==

== ENCOUNTER 2022-01-10 12:14 | Outpatient (REF) | payer OTHER, SELFPAY ==
--- NOTE | ~2022-01-10 | XR_ITS ---
EXAMINATION: 1. LEFT KNEE. 2. LEFT ANKLE. CLINICAL INFORMATION: Left knee joint effusion. Left ankle joint effusion. COMPARISON: None TECHNIQUE: 1. Left knee. 3 views 2. Left ankle. 3 views FINDINGS: 1. Left knee. No fracture. No dislocation. No degenerative change. No joint effusion. No soft tissue calcifications. 2. Left ankle. No fracture. No dislocation. Mild soft tissue swelling at lateral malleolus. No joint effusion however. No degenerative change. No soft tissue calcification. XR/XR knee LT 3V IMPRESSION: 1. Left knee. Normal left knee. 2. Left ankle. Mild soft tissue swelling at lateral malleolus. No joint effusion however. No acute osseous abnormality.
--- NOTE | ~2022-01-10 | XR_ITS ---
EXAMINATION: 1. LEFT KNEE. 2. LEFT ANKLE. CLINICAL INFORMATION: Left knee joint effusion. Left ankle joint effusion. COMPARISON: None TECHNIQUE: 1. Left knee. 3 views 2. Left ankle. 3 views FINDINGS: 1. Left knee. No fracture. No dislocation. No degenerative change. No joint effusion. No soft tissue calcifications. 2. Left ankle. No fracture. No dislocation. Mild soft tissue swelling at lateral malleolus. No joint effusion however. No degenerative change. No soft tissue calcification. XR/XR ankle LT 2V IMPRESSION: 1. Left knee. Normal left knee. 2. Left ankle. Mild soft tissue swelling at lateral malleolus. No joint effusion however. No acute osseous abnormality.
== END 2022-01-10 12:15 | disposition home or self-care (01) ==
LOC: HO.XRAY 12:14
PROVIDERS: PCP Internal Medicine; Visit Provider Nurse Practitioner Family
DX: M54.42 Lumbago with sciatica, left side (principal); M25.462 Effusion, left knee; M25.472 Effusion, left ankle; R21 Rash and other nonspecific skin eruption; Z79.899 Other long term (current) drug therapy; M26.629 Arthralgia of temporomandibular joint, unspecified side
CPT/HCPCS: 73562; 73600; 99212

== ENCOUNTER 2022-03-03 05:57 | Outpatient (REF) | payer OTHER, SELFPAY ==
--- NOTE | ~2022-03-03 | XR_ITS ---
EXAMINATION: XR KNEE AP STANDING CLINICAL INFORMATION: Pain right knee COMPARISON: Left knee x-ray December 2021 TECHNIQUE: AP bilateral standing view of the knees was obtained. FINDINGS: Bones and soft tissues are normal. No fracture or joint effusion. Alignment is anatomic. Joint spaces are well maintained. No abnormal soft tissue calcification. XR/XR knee standing BI IMPRESSION: Normal knees.
== END 2022-03-03 05:58 | disposition home or self-care (01) ==
LOC: HO.HOSX 05:57
PROVIDERS: Visit Provider Physician Assistant
DX: M17.12 Unilateral primary osteoarthritis, left knee (principal)
CPT/HCPCS: 20610; 73565; 99202; J1040

== ENCOUNTER 2022-03-21 06:42 | Outpatient (REF) | payer OTHER, SELFPAY ==
[2022-03-21 08:04] LABS: Alanine Aminotransferase 22 U/L (0-40); Albumin Level 4.3 g/dL (3.5-5.0); Alkaline Phosphatase 93 U/L (39-117); Anion Gap 12 (12-20); Aspartate Amino Transferase 19 U/L (5-37); Bilirubin Total 0.8 mg/dL (0.0-1.0); Blood Urea Nitrogen 18 mg/dL (9-16); Calcium 9.3 mg/dL (8.4-10.2); Carbon Dioxide 28 mmol/L (22-29); Chloride 100 mmol/L (96-108); Cholesterol 175 mg/dL; Estimated Glomerular Filt Rate > 60; Glucose Fasting 90 mg/dL (60-99); HDL Cholesterol 43 mg/dL; LDL Cholesterol Calculated 113 mg/dl; Potassium 3.3 mmol/L (3.3-5.1); Sodium 137 mmol/L (135-145); Triglycerides 96 mg/dL
[2022-03-21 08:21] LABS: Free T4 (Free Thyroxine) 0.99 ng/dL (0.71-1.85)
== END 2022-03-21 06:43 | disposition home or self-care (01) ==
LOC: HO.LAB 06:42
PROVIDERS: Internal Medicine Endocrinology, Diabetes & Metabolism; PCP Internal Medicine; Visit Provider Internal Medicine
DX: E78.5 Hyperlipidemia, unspecified (principal); E03.8 Other specified hypothyroidism; E06.3 Autoimmune thyroiditis; I10 Essential (primary) hypertension
CPT/HCPCS: 36415; 80053; 80061; 84439; 84443

== ENCOUNTER → 2022-03-24 08:55 | Outpatient (BNVA) | payer OTHER, SELFPAY | PROVIDERS: PCP Internal Medicine; Visit Provider Dietitian, Registered | DX: E66.3 Overweight (principal); Z68.29 Body mass index [BMI] 29.0-29.9, adult | CPT/HCPCS: 97803 ==

== ENCOUNTER 2022-05-05 06:57 | Outpatient (REF) | payer OTHER, SELFPAY ==
[2022-05-05 07:43] LABS: Cholesterol 152 mg/dL; HDL Cholesterol 37 mg/dL; LDL Cholesterol Calculated 95 mg/dl; Triglycerides 102 mg/dL
[2022-05-05 08:47] LABS: PSA,Total (Free>4and<10) 7.98 ng/mL (0.00-4.00)
[2022-05-08 11:06] LABS: Free Prostate Spec Ag 1.4 ng/mL; Percent Free Prostate Spec Ag 19 % (calc) (>25); Prostate Specific Ag Total 7.5 ng/mL (< OR = 4.0)
[2022-05-10 17:02] LABS: Thyroid Stimulating Immunoglob <89 % baseline (<140)
== END 2022-05-05 06:58 | disposition home or self-care (01) ==
LOC: HO.LAB 06:57
PROVIDERS: PCP Internal Medicine; Visit Provider Internal Medicine
DX: E03.9 Hypothyroidism, unspecified (principal); E78.5 Hyperlipidemia, unspecified; Z12.5 Encounter for screening for malignant neoplasm of prostate
CPT/HCPCS: 36415; 80061; 84153; 84154; 84445

== ENCOUNTER → 2022-05-12 12:39 | Outpatient (BNVA) | payer OTHER, SELFPAY | PROVIDERS: PCP Internal Medicine; Visit Provider Physician Assistant | DX: M25.572 Pain in left ankle and joints of left foot (principal); G89.29 Other chronic pain | CPT/HCPCS: 20605; 99212; J1020 ==

== ENCOUNTER 2022-05-16 07:20 | Outpatient (REF) | payer OTHER, SELFPAY ==
[2022-05-16 08:34] LABS: Free T4 (Free Thyroxine) 1.13 ng/dL (0.71-1.85); Thyroid Stimulating Hormone 0.54 uIU/mL (0.32-4.0)
== END 2022-05-16 07:21 | disposition home or self-care (01) ==
LOC: HO.LAB 07:20
PROVIDERS: PCP Internal Medicine; Visit Provider Internal Medicine Endocrinology, Diabetes & Metabolism
DX: E03.8 Other specified hypothyroidism (principal); E06.3 Autoimmune thyroiditis
CPT/HCPCS: 36415; 84439; 84443

== ENCOUNTER → 2022-05-19 08:46 | Outpatient (BNVA) | payer OTHER, SELFPAY | PROVIDERS: PCP Internal Medicine; Visit Provider Internal Medicine Endocrinology, Diabetes & Metabolism | DX: E03.8 Other specified hypothyroidism (principal); E06.3 Autoimmune thyroiditis; Z79.899 Other long term (current) drug therapy | CPT/HCPCS: 99212 ==

== ENCOUNTER 2022-06-07 06:32 | Outpatient (REF) | payer OTHER, SELFPAY ==
[2022-06-07 06:41] LABS: MANUAL DIFF FLAG NO
[2022-06-07 07:17] LABS: Basophils Absolute Auto 0.1 X10*3/uL (0.0-0.2); Basophils Percent Auto 0.6 % (0-2); Eosinophils Absolute Auto 0.4 X10*3/uL (0.0-0.4); Eosinophils Percent Auto 4.5 % (0-4); Hematocrit 43.6 % (42.0-52.0); Hemoglobin 14.9 g/dl (14.0-18.0); Imm Gran Abs Auto 0.02 X10*3/uL (0.00-0.03); Imm Gran Pct Auto 0.2 % (0.0-0.4); Lymphocytes Absolute Auto 3.8 X10*3/uL (1.2-4.9); Lymphocytes Percent Auto 46.1 % (20-40); Mean Corpuscular HGB Conc 34.2 g/dl (31.0-36.0); Mean Corpuscular Hemoglobin 30.8 pg (27.0-33.0); Mean Corpuscular Volume 90.3 fL (80.0-98.0); Mean Platelet Volume 10.9 fL (9.4-12.4); Monocytes Absolute Auto 0.8 X10*3/uL (0.1-1.2); Monocytes Percent Auto 9.3 % (2-11); Neutrophils Absolute Auto 3.2 x10*3/uL (2.0-8.3); Neutrophils Percent Auto 39.3 % (45-73); Platelet Count 219 X10*3/uL (160-400); Red Blood Count 4.83 X10*6/uL (4.60-5.80); Red Cell Distribution Width 11.4 % (11.0-16.0); White Blood Count 8.3 X10*3/uL (4.8-10.8)
[2022-06-07 08:08] LABS: Prostate Specific Antigen 3.91 ng/mL (<0.05-4.0)
[2022-06-08 20:51] LABS: Prolactin 17.2 ng/mL (2.0-18.0)
[2022-06-12 18:57] LABS: Testosterone, Free 54.8 pg/mL (35.0-155.0); Testosterone, Total 324 ng/dL (250-1100)
== END 2022-06-07 06:33 | disposition home or self-care (01) ==
LOC: HO.LAB 06:32
PROVIDERS: PCP Internal Medicine; Visit Provider Physician Assistant
DX: Z12.5 Encounter for screening for malignant neoplasm of prostate (principal); E29.1 Testicular hypofunction
CPT/HCPCS: 36415; 84146; 84153; 84402; 84403; 85025

== ENCOUNTER 2022-06-13 10:00 | Outpatient (RCR) | payer OTHER, SELFPAY ==
--- NOTE | 2022-06-02 11:17 | MHC.PT.EP ---
[facility] [place] [facility] [place] [facility] [place] [facility] [address]ishnavi [address] [phone] F: [phone] F: [phone] F: [phone] F: [phone] Physical Therapy Plan of Care Date of Evaluation: Date of Surgery: n/a Diagnosis: chronic pain in ankle Assessment: Patient is a 61 year old R handed male who presents with s/s consistent with L chronic ankle pain. He is not currently working but enjoys walking and staying active in the community. Patient past medical history includes anxiety, depression, neck pain and hernia. Current impairments include pain, flexibility, swelling, ROM, strength, activity tolerance and functional mobility. Functional limitations include decreased ability to perform standing and weight bearing activities. Patient is motivated with good rehab potential. Skilled PT will address impairments and functional limitations in order to achieve goals. Frequency and Duration: The patient will be seen 2x/week for 4 weeks Short Term Goals: I with HEP - 2 weeks URI WNL - 2 weeks reduced swelling and TTP absent - 2 weeks Residential Goals: LEFS 58/80 - 4 weeks Strength 4+/5 grossly - 4 weeks swelling absent - 4 weeks Treatment Plan: Modalities to reduce pain, spasms and effusion. Manual therapy to restore motion and function. Therapeutic exercise to improve strength and flexibility. Neuromuscular re-education for posture and balance. Therapeutic activities to return to functional activities of daily living. Electronically signed by: Chan Garcia, PT Please sign and return to therapist. Thank you for your referral.
--- NOTE | 2022-07-13 09:23 | MHC.PT.DC ---
[facility] [place] Office [place] Office [place] Office [address] Huan Riggins [address] [phone] F: [phone] F: [phone] F: [phone] F: [phone] Physical Therapy Discharge Report Diagnosis: chronic pain in ankle Date of Surgery: n/a Date of Evaluation: 06/02/22 Date of Discharge: 07/03/22 Treatments to Date: 2 Cancellations to Date: No Shows to Date: Discharge Status: Patient Elected to Stop Discharge Summary: Decided to stop PT. 06/13: Pt reports he had fluid drained from his L knee about 1 and a half months ago and had an injection into his L ankle and reports increased pain at that time. He reports he has had ankle injury since 2000 and has a Hx of sciatica L LE which can make his L LE function worse. No adverse effects. to Tx today; reviewed initial exercise ideas and progressed treatment; Pt with antalgic gait to start session demonstrated improved gait and reported less pain post Tx. No adverse effects. ed on wear/ remove of TET. Patient is a 61 year old R handed male who presents with s/s consistent with L chronic ankle pain. He is not currently working but enjoys walking and staying active in the community. Patient past medical history includes anxiety, depression, neck pain and hernia. Current impairments include pain, flexibility, swelling, ROM, strength, activity tolerance and functional mobility. Functional limitations include decreased ability to perform standing and weight bearing activities. Patient is motivated with good rehab potential. Skilled PT will address impairments and functional limitations in order to achieve goals. Electronically signed by: Chan Garcia, PT Please sign and return to therapist. Thank you for your referral.
== END 2022-07-13 09:23 | disposition home or self-care (01) ==
LOC: HO.PTCHIC 10:00
PROVIDERS: PCP Internal Medicine; Visit Provider Physician Assistant
DX: M25.572 Pain in left ankle and joints of left foot (principal); G89.29 Other chronic pain
CPT/HCPCS: 97110; 97140; 97162

== ENCOUNTER 2022-07-13 12:16 | Outpatient (REF) | payer OTHER, SELFPAY ==
--- NOTE | ~2022-07-13 | XR_ITS ---
EXAMINATION: 1. RADIOGRAPHS CERVICAL SPINE 2. RADIOGRAPHS RIGHT HAND 3. RADIOGRAPHS LEFT HAND CLINICAL INFORMATION: Cervicalgia. Bilateral hand pain. COMPARISON: Cervical spine x-rays 08/13/2017 TECHNIQUE: 3 views of the cervical spine, 3 views of the right hand and 3 views of the left hand were obtained. FINDINGS: Cervical spine: The cervical spine is visualized in its entirety. There is minimal anterolisthesis of C6 on C7. Alignment is otherwise unremarkable. Normal C1/C2 articulation. Cervical vertebral body heights are maintained. There is mild narrowing of the C5/C6 disc space height with moderate narrowing of the C6/C7 disc space height. Small osteophytes within the mid to lower cervical spine. Visualized lung apices are well aerated. Right hand: Visualized portion of the distal radius and ulna demonstrate no fracture. Carpal rows are maintained. No carpal bone fracture. No metacarpal or phalangeal fracture. No significant degenerative changes of the right hand. No focal soft tissue swelling. No radiopaque foreign body. Left hand: Visualized portion of the distal radius and ulna demonstrate no fracture. Carpal rows are maintained. No carpal, metacarpal or phalangeal fracture. No significant degenerative changes. No focal soft tissue swelling. No radiopaque foreign body. XR/XR hand LT min 3V IMPRESSION: -Mild to moderate degenerative changes of the cervical spine, particularly the mid to lower cervical spine. -Grossly unremarkable radiographs of the bilateral hands.
--- NOTE | ~2022-07-13 | XR_ITS ---
EXAMINATION: 1. RADIOGRAPHS CERVICAL SPINE 2. RADIOGRAPHS RIGHT HAND 3. RADIOGRAPHS LEFT HAND CLINICAL INFORMATION: Cervicalgia. Bilateral hand pain. COMPARISON: Cervical spine x-rays 08/13/2017 TECHNIQUE: 3 views of the cervical spine, 3 views of the right hand and 3 views of the left hand were obtained. FINDINGS: Cervical spine: The cervical spine is visualized in its entirety. There is minimal anterolisthesis of C6 on C7. Alignment is otherwise unremarkable. Normal C1/C2 articulation. Cervical vertebral body heights are maintained. There is mild narrowing of the C5/C6 disc space height with moderate narrowing of the C6/C7 disc space height. Small osteophytes within the mid to lower cervical spine. Visualized lung apices are well aerated. Right hand: Visualized portion of the distal radius and ulna demonstrate no fracture. Carpal rows are maintained. No carpal bone fracture. No metacarpal or phalangeal fracture. No significant degenerative changes of the right hand. No focal soft tissue swelling. No radiopaque foreign body. Left hand: Visualized portion of the distal radius and ulna demonstrate no fracture. Carpal rows are maintained. No carpal, metacarpal or phalangeal fracture. No significant degenerative changes. No focal soft tissue swelling. No radiopaque foreign body. XR/XR cervical spine 2V IMPRESSION: -Mild to moderate degenerative changes of the cervical spine, particularly the mid to lower cervical spine. -Grossly unremarkable radiographs of the bilateral hands.
--- NOTE | ~2022-07-13 | XR_ITS ---
EXAMINATION: 1. RADIOGRAPHS CERVICAL SPINE 2. RADIOGRAPHS RIGHT HAND 3. RADIOGRAPHS LEFT HAND CLINICAL INFORMATION: Cervicalgia. Bilateral hand pain. COMPARISON: Cervical spine x-rays 08/13/2017 TECHNIQUE: 3 views of the cervical spine, 3 views of the right hand and 3 views of the left hand were obtained. FINDINGS: Cervical spine: The cervical spine is visualized in its entirety. There is minimal anterolisthesis of C6 on C7. Alignment is otherwise unremarkable. Normal C1/C2 articulation. Cervical vertebral body heights are maintained. There is mild narrowing of the C5/C6 disc space height with moderate narrowing of the C6/C7 disc space height. Small osteophytes within the mid to lower cervical spine. Visualized lung apices are well aerated. Right hand: Visualized portion of the distal radius and ulna demonstrate no fracture. Carpal rows are maintained. No carpal bone fracture. No metacarpal or phalangeal fracture. No significant degenerative changes of the right hand. No focal soft tissue swelling. No radiopaque foreign body. Left hand: Visualized portion of the distal radius and ulna demonstrate no fracture. Carpal rows are maintained. No carpal, metacarpal or phalangeal fracture. No significant degenerative changes. No focal soft tissue swelling. No radiopaque foreign body. XR/XR hand RT min 3V IMPRESSION: -Mild to moderate degenerative changes of the cervical spine, particularly the mid to lower cervical spine. -Grossly unremarkable radiographs of the bilateral hands.
[2022-07-13 13:47] LABS: C Reactive Protein 1.56 mg/dL (< or = 0.50)
[2022-07-13 14:24] LABS: Erythrocyte Sedimentation Rate 7 MM/HR (0-15)
== END 2022-07-13 12:17 | disposition home or self-care (01) ==
LOC: HO.LAB 12:16
PROVIDERS: Visit Provider Nurse Practitioner Family
DX: M79.641 Pain in right hand (principal); M79.642 Pain in left hand; M54.2 Cervicalgia; M54.42 Lumbago with sciatica, left side; M25.462 Effusion, left knee; M25.472 Effusion, left ankle; M25.50 Pain in unspecified joint
CPT/HCPCS: 36415; 72040; 73130; 85652; 86140; 99212

== ENCOUNTER 2022-07-14 10:35 | Outpatient (REF) | payer OTHER, SELFPAY ==
[2022-07-14 12:22] LABS: Rheumatoid Factor < 15.0 IU/mL (<15.0)
[2022-07-17 16:32] LABS: Cyclic Citrullinated Peptide <16 UNITS
[2022-07-18 10:22] LABS: HLA B27 Negative (Negative)
== END 2022-07-14 10:36 | disposition home or self-care (01) ==
LOC: HO.LAB 10:35
PROVIDERS: PCP Internal Medicine; Visit Provider Nurse Practitioner Family
DX: M25.50 Pain in unspecified joint (principal)
CPT/HCPCS: 36415; 86200; 86431; 86812

== ENCOUNTER → 2022-07-28 13:46 | Outpatient (BNVA) | payer OTHER, SELFPAY | PROVIDERS: PCP Internal Medicine; Referring Provider Internal Medicine; Visit Provider Nurse Practitioner | DX: K21.9 Gastro-esophageal reflux disease without esophagitis (principal); K59.04 Chronic idiopathic constipation; D36.9 Benign neoplasm, unspecified site | CPT/HCPCS: 99212 ==

== ENCOUNTER 2022-08-07 06:26 | Outpatient (REF) | payer OTHER, SELFPAY ==
[2022-08-07 07:59] LABS: Alanine Aminotransferase 23 U/L (0-40); Albumin Level 4.3 g/dL (3.5-5.0); Alkaline Phosphatase 93 U/L (39-117); Anion Gap 14 (12-20); Aspartate Amino Transferase 17 U/L (5-37); Bilirubin Total 0.7 mg/dL (0.0-1.0); Blood Urea Nitrogen 18 mg/dL (9-16); Calcium 8.9 mg/dL (8.4-10.2); Carbon Dioxide 29 mmol/L (22-29); Chloride 99 mmol/L (96-108); Cholesterol 161 mg/dL; Estimated Glomerular Filt Rate > 60; Glucose Fasting 84 mg/dL (60-99); HDL Cholesterol 39 mg/dL; LDL Cholesterol Calculated 103 mg/dl; Potassium 4.2 mmol/L (3.3-5.1); Sodium 138 mmol/L (135-145); Triglycerides 95 mg/dL
[2022-08-07 08:20] LABS: Thyroid Stimulating Hormone 0.94 uIU/mL (0.32-4.0)
[2022-08-12 22:06] LABS: Testosterone, Total 341 ng/dL (250-1100)
== END 2022-08-07 06:27 | disposition home or self-care (01) ==
LOC: HO.LAB 06:26
PROVIDERS: PCP Internal Medicine; Visit Provider Internal Medicine
DX: E06.3 Autoimmune thyroiditis (principal); E78.00 Pure hypercholesterolemia, unspecified; E78.5 Hyperlipidemia, unspecified; N52.9 Male erectile dysfunction, unspecified; E03.8 Other specified hypothyroidism
CPT/HCPCS: 36415; 80053; 80061; 84402; 84403; 84443

== ENCOUNTER → 2022-08-21 11:06 | Outpatient (BNVA) | payer OTHER, SELFPAY | PROVIDERS: PCP Internal Medicine; Visit Provider Internal Medicine | DX: M47.812 Spondylosis without myelopathy or radiculopathy, cervical region (principal) | CPT/HCPCS: 99202 ==

== ENCOUNTER 2022-10-25 06:12 | Outpatient (REF) | payer OTHER, SELFPAY | END 2022-10-25 06:13 | disposition home or self-care (01) | LOC: CF 06:12 | PROVIDERS: Visit Provider Internal Medicine | DX: Z13.89 Encounter for screening for other disorder (principal) ==

== ENCOUNTER 2022-11-02 10:18 | Outpatient (REF) | payer OTHER, SELFPAY ==
[2022-11-02 11:40] LABS: Appearance Urine Clear; Color Urine Yellow; Glucose Urine UA Negative (Negative); Leukocyte Esterase Urine Negative (Negative); Nitrite Urine Negative (Negative); Specific Gravity - Urine 1.015 (1.005-1.025); Urine Blood Negative (Negative); Urine Ketones Negative (Negative); Urine Protein Negative (Neg-Trace)
== END 2022-11-02 10:19 | disposition home or self-care (01) ==
LOC: HO.LAB 10:18
PROVIDERS: PCP Internal Medicine; Visit Provider Internal Medicine
DX: R30.0 Dysuria (principal)
CPT/HCPCS: 81003

== ENCOUNTER 2022-11-15 06:11 | Outpatient (REF) | payer OTHER, SELFPAY ==
--- NOTE | ~2022-11-15 | FL_ITS ---
EXAMINATION: XR FLUOROSCOPY WITH IMAGES CLINICAL INFORMATION: Pain right neck. COMPARISON: None. TECHNIQUE: Fluoroscopy Supervised By: Pat Monroy/ Dr Summers. Fluoroscopy Time: 0.1 minutes. Cumulative Dose: 3.95 mGy. DAP: 0.308 Gycm2. Images: 2. FINDINGS: 2 digital images were obtained with needle positioned right of C3, C4 and C5 vertebrae with contrast opacifying the ventral soft tissues. Visualized bones are grossly unremarkable. There is mild loss of C5-C6 height with ventral spondylosis. FL/FL guidance in treatment room IMPRESSION: Fluoroscopy guidance was provided to referrer for pain management.
== END 2022-11-15 06:12 | disposition home or self-care (01) ==
LOC: CF 06:11
PROVIDERS: Visit Provider Internal Medicine
DX: M47.812 Spondylosis without myelopathy or radiculopathy, cervical region (principal)
CPT/HCPCS: 64490; 64491

== ENCOUNTER → 2022-12-08 11:06 | Outpatient (BNVA) | payer OTHER, SELFPAY | PROVIDERS: PCP Internal Medicine; Visit Provider Internal Medicine | DX: M47.812 Spondylosis without myelopathy or radiculopathy, cervical region (principal) | CPT/HCPCS: Q3014 ==

== ENCOUNTER 2022-12-20 07:11 | Outpatient (REF) | payer OTHER, SELFPAY ==
[2022-12-20 08:12] LABS: Alanine Aminotransferase 19 U/L (0-40); Albumin Level 4.4 g/dL (3.5-5.0); Alkaline Phosphatase 94 U/L (39-117); Anion Gap 11 (12-20); Aspartate Amino Transferase 20 U/L (5-37); Blood Urea Nitrogen 19 mg/dL (9-16); Calcium 9.3 mg/dL (8.4-10.2); Carbon Dioxide 33 mmol/L (22-29); Chloride 100 mmol/L (96-108); Cholesterol 175 mg/dL; Estimated Glomerular Filt Rate > 60; Glucose Fasting 93 mg/dL (60-99); HDL Cholesterol 37 mg/dL; LDL Cholesterol Calculated 113 mg/dl; Potassium 3.7 mmol/L (3.3-5.1); Sodium 140 mmol/L (135-145); Total Protein 6.8 g/dL (6.5-8.0); Triglycerides 129 mg/dL
[2022-12-20 08:29] LABS: Thyroid Stimulating Hormone 0.81 uIU/mL (0.32-4.0); Vitamin D 25-OH Total 32.9 ng/mL (>30)
== END 2022-12-20 07:12 | disposition home or self-care (01) ==
LOC: HO.LAB 07:11
PROVIDERS: PCP Internal Medicine; Visit Provider Internal Medicine
DX: E03.8 Other specified hypothyroidism (principal); E06.3 Autoimmune thyroiditis; E78.5 Hyperlipidemia, unspecified; E55.9 Vitamin D deficiency, unspecified; E78.00 Pure hypercholesterolemia, unspecified
CPT/HCPCS: 36415; 80053; 80061; 82306; 84443

== ENCOUNTER 2022-12-25 11:14 | Outpatient (REF) | payer OTHER, SELFPAY ==
--- NOTE | ~2022-12-25 | XR_ITS ---
EXAMINATION: XR SHOULDER, LEFT CLINICAL INFORMATION: Left shoulder pain. COMPARISON: 01/01/2020 TECHNIQUE: AP external rotation, Grashey, scapular Y, and axillary views of the left shoulder. FINDINGS: There is mild acromioclavicular osteoarthritis. Glenohumeral joint is well preserved. No fracture. Alignment is anatomic. Soft tissues are normal with no abnormal calcifications. XR/XR shoulder LT min 2V IMPRESSION: Mild osteoarthritis of the acromioclavicular joint.
== END 2022-12-25 11:15 | disposition home or self-care (01) ==
LOC: HO.XRAY 11:14
PROVIDERS: PCP Internal Medicine; Visit Provider Internal Medicine
DX: M25.512 Pain in left shoulder (principal)
CPT/HCPCS: 73030

== ENCOUNTER → 2023-01-10 11:43 | Outpatient (BNVA) | payer OTHER, SELFPAY | PROVIDERS: PCP Internal Medicine; Visit Provider Nurse Practitioner Family | DX: M54.42 Lumbago with sciatica, left side (principal); M25.462 Effusion, left knee; M25.472 Effusion, left ankle; M47.812 Spondylosis without myelopathy or radiculopathy, cervical region | CPT/HCPCS: 99212 ==

== ENCOUNTER 2023-01-17 05:49 | Outpatient (REF) | payer OTHER, SELFPAY | END 2023-01-17 05:50 | disposition home or self-care (01) | LOC: CF 05:49 | PROVIDERS: Visit Provider Internal Medicine | DX: M47.812 Spondylosis without myelopathy or radiculopathy, cervical region (principal) ==

== ENCOUNTER → 2023-01-26 11:10 | Outpatient (BNVA) | payer OTHER, SELFPAY | PROVIDERS: PCP Internal Medicine; Visit Provider Nurse Practitioner | DX: K21.9 Gastro-esophageal reflux disease without esophagitis (principal); K59.04 Chronic idiopathic constipation; Z86.010 Personal history of colon polyps; Z79.899 Other long term (current) drug therapy | CPT/HCPCS: 99212 ==

== ENCOUNTER 2023-03-28 06:13 | Outpatient (REF) | payer OTHER, SELFPAY | END 2023-03-28 06:14 | disposition home or self-care (01) | LOC: CF 06:13 | PROVIDERS: Visit Provider Internal Medicine | DX: M47.812 Spondylosis without myelopathy or radiculopathy, cervical region (principal) ==

== ENCOUNTER 2023-04-30 08:46 | Outpatient (REF) | payer OTHER, SELFPAY | END 2023-04-30 08:47 | disposition home or self-care (01) | LOC: HO.LAB 08:46 | PROVIDERS: PCP Internal Medicine; Visit Provider Internal Medicine | DX: E03.9 Hypothyroidism, unspecified (principal) | CPT/HCPCS: 36415; 84443 ==

== ENCOUNTER 2023-06-14 09:56 | Outpatient (REF) | payer OTHER, SELFPAY ==
--- NOTE | ~2023-06-14 | XR_ITS ---
EXAMINATION: XR THORACIC SPINE CLINICAL INFORMATION: Dorsalgia. COMPARISON: Radiographs dated 08/13/2017. TECHNIQUE: Frontal, lateral and swimmer's views of the thoracic spine were obtained. FINDINGS: Vertebral body heights are normal. There is a slight thoracolumbar levoscoliosis. There is mild disc space narrowing at T6-T7. The remaining disc spaces are relatively well-maintained. A mild T11 anterior wedge compression fracture is again seen. No acute fracture or spondylolisthesis is seen. There is multi-level thoracolumbar spondylosis, most pronounced at T7-T8 and T8-T9, where it is severe. The posterior elements are intact. The paravertebral soft tissues are unremarkable. XR/XR thoracic spine 3V IMPRESSION: 1. There is mild degenerative disc disease at T6-T7. 2. A mild T11 anterior wedge compression fractures redemonstrated. 3. There is multi-level thoracolumbar spondylosis, most pronounced at T7-T8 and T8-T9. 4. There is a slight thoracolumbar levoscoliosis
== END 2023-06-14 09:57 | disposition home or self-care (01) ==
LOC: HO.XRAY 09:56
PROVIDERS: PCP Internal Medicine; Visit Provider Internal Medicine Rheumatology
DX: M54.9 Dorsalgia, unspecified (principal); M65.9 Synovitis and tenosynovitis, unspecified; M47.812 Spondylosis without myelopathy or radiculopathy, cervical region; M47.815 Spondylosis without myelopathy or radiculopathy, thoracolumbar region; M51.34 Other intervertebral disc degeneration, thoracic region; M48.54XA Collapsed vertebra, not elsewhere classified, thoracic region, initial encounter for fracture; M19.90 Unspecified osteoarthritis, unspecified site
CPT/HCPCS: 72072; 99212

== ENCOUNTER 2023-06-14 09:56 | Outpatient (AMB) | payer OTHER, SELFPAY ==
--- NOTE | 2023-06-14 10:02 | MHC.OFFVIS ---
Intake Vital Signs 06/14/23 10:04 Height 5 ft 7 in Weight 187 lb 9.814 oz BMI 29.4 BP 124/78 Blood Pressure Location Lt brachial Position Sitting Pulse 90 Pulse Source Pulse Oximeter Temp 98.1 F Temp Source Skin Pulse Oximetry (%) 100 Oxygen Delivery Method Room Air Intake Visit Reasons: osteoarthritis Intake Note: Here for OA follow up. Funds Development Director Required: Yes Funds Development Director Language: Study Assistant Name: [id number] Information Interpreted: clinical only Accompanied by: Self / Same As Patient Allergies amlodipine Allergy (Intermediate, Verified 06/14/23 10:04) leg edema carisoprodol [From [facility]] Allergy (Intermediate, Verified 06/14/23 10:04) twitching jennyfer inhibitors Adverse Reaction (Intermediate, Verified 06/14/23 10:04) cough, anxiety HPI HPI Comments History of Present Illness Details The patient returns for evaluation of his osteoarthritis. The visit is facilitated through the use of the iPad translating device. The patient was last here in December seeing Nisreen. Today he is complaining mostly of some thoracic back pain. This is more on the right side of the spine. It is worse with more physical activity. He has had neck pain due to osteoarthritis that was treated at the pain management center. It is not clear he got that much relief so did not return to them. I am not exactly sure which pain they were treating but the neck does not seem to be the biggest problem today. He was getting some intermittent pain and swelling in the left ankle. This was injured many years ago -2001-in [place]. He found he did see Podiatry and he was felt to have a tendonitis at the ankle. He is wearing a brace today but only started wearing it yesterday. He takes 600 mg ibuprofen few times a day if needed. That seems to help his pains. He also has some catching and pain at the left 2nd finger. This has been there for about 6 months. [facility] Medical History Depression with anxiety Erectile dysfunction Essential hypertension EMILY (generalized anxiety disorder) GERD (gastroesophageal reflux disease) HSV (herpes simplex virus) anogenital infection Hypothyroidism Mild recurrent major depression Neck pain Obesity Onychomycosis Pure hypercholesterolemia Scoliosis Tubular adenoma of colon Umbilical hernia Surgical History Hx of colonoscopy (~2009) Status post excision of lipoma Family History Father HTN (hypertension) Mother HTN (hypertension) Hypercholesteremia Family/Other HTN (hypertension) Thyroid disease Diabetes FH: mental illness Daughter Thyroid disease Son No problems noted. Brother Substance abuse Social History Household Members: None Housing: Apartment Alcohol intake: current Alcohol intake frequency: a few times a month Alcohol type: beer Patient Tobacco Use Status: Never used Tobacco e-Cigarette/Vaping Use: Never Used Second Hand Smoke Exposure: No service: No Current occupational status: disabled Cognitive needs: No Hearing needs: No Vision needs: Yes (Glasses) Review of Systems Const Details: Negative for appetite change, weight change, fever, chills, malaise and fatigue Eyes Details: Negative for vision change, dry eyes,headaches and dizziness ENT Details: Negative for hearing change, tinnitus, oral ulcer, nose bleeds and oral dryness. Card Details: Negative chest pain, edema and syncope Resp Details: Negative for SOB, cough and wheezing GI Details: Negative indigestion/heartburn, nausea, abdominal pain, bowel changes, diarrhea, constipation and bloody stool. Details: Negative for dysuria, hematuria, nocturia, decreased force/flow and genital discharge Skin/Breast Details: Negative for itching, rash, hives, Raynaud's symptoms, sun sensitivity, and skin cancer Neuro Details: Negative for epilepsy, palsy, stroke, changes in speech, tingling and weakness Psych Details: Negative for anxiety, depression and stress Endo Details: Negative for polyuria and polydypsia Colton/Lymph Details: Negative for excessive bruising or bleeding. Physical Exam Vital Signs: Last Vital Signs Temp 98.1 F 06/14/23 10:04 Pulse 90 06/14/23 10:04 BP 124/78 06/14/23 10:04 Pulse Ox 100 06/14/23 10:04 Oxygen Delivery Method Room Air 06/14/23 10:04 BMI result Body Mass Index 29.4 APPEARANCE: Patient in no acute distress EYES no redness, pupils equal and reactive to light, eyelids normal. No temporal artery tenderness, redness or swelling. EXTREMITIES: No edema, no calf tenderness, normal peripheral pulses. NEURO: Oriented and alert x3. No focal weakness. Reflexes symmetric. Gait normal. SKIN: No inflammatory or neoplastic lesions. Normal color and turgor JOINT EXAM: JOINT EXAM:?? Cervical Spine: Mild pain with lateral flexion at 15 degrees of rotation at 45 degrees. There is mild tenderness in the posterior cervical spinal muscles.? Able to perform flexion. Thoracic Spine:? No scoliosis.? Mild paraspinal tenderness in the lower thoracic region on the right. No tenderness over the spine itself. Lumbar Spine:.? Alignment normal.? Able to perform flexion and extension with slight pain.? Slight tenderness to palpation over the lumbar spine. Hands: LEFT: Normal pain-free range of motion.? There is tenderness along the thumb and 2nd finger flexor tendons. Most of the tenderness is along the 2nd finger flexor tendon where he has some triggering. No redness or swelling. There is some minimal tenderness at the 2nd PIP without swelling. No thenar atrophy, sensory loss, or other areas of tendon tenderness. ? RIGHT: ? Normal pain-free range of motion.? No tenderness, swelling increased warmth or erythema.? Able to make a full fist and has good gallery host strength. Wrists:? Normal pain-free range of motion without tenderness, swelling, increased warmth or erythema. Elbows: Normal pain-free range of motion without tenderness, swelling, increased warmth or erythema. Shoulders:?? Full range of motion without pain. No tenderness, weakness, swelling, increased warmth or erythema. Hips:? Full range of motion without pain. Hip bursa:? No tenderness. Knees:? Normal pain-free range of motion without tenderness, swelling, increased warmth or erythema.? There is no effusion or crepitation Ankles: LEFT: The ankle is in a brace today and I did not examine it. ? RIGHT:? Normal pain-free range of motion without tenderness, swelling, increased warmth erythema. Feet:? Normal pain-free range of motion without tenderness, swelling, increased warmth or erythema. ? Assessment & Plan Assessment & Plan (1) Flexor tenosynovitis of finger: Code(s): M65.9 - Synovitis and tenosynovitis, unspecified (2) Cervical spondylosis: Code(s): M47.812 - Spondylosis without myelopathy or radiculopathy, cervical region (3) Upper back pain: Code(s): M54.9 - Dorsalgia, unspecified Plan I do not see any signs of an active inflammatory arthritis. He is symptomatic today with some flexor tenosynovitis involving the left 2nd finger. We could consider a corticosteroid injection here or surgical evaluation. After much discussion he agrees to a corticosteroid injection. The palm of the left hand was prepped with ChloraPrep and alcohol. Under topical ethyl chloride spray the 2nd flexor tendon sheath was injected with 20 mg of triamcinolone and 0.2 cc of 1% lidocaine. The patient tolerated the procedure without any acute complications. He will see how this works out over the next few weeks. If there is not much improvement he could consider a surgical evaluation. This thoracic pain may be referred from the neck region as he certainly has some cervical osteoarthritis. I will check a thoracic spine film. He was directed back to Pain Management to see if they can help him with this back pain. Orders: Orders XR thoracic spine 3V Today M54.9 - Dorsalgia, unspecified Referrals Pain Management Referral M54.9 - Dorsalgia, unspecified Coding Level of Care Code Est Pt Level 3 (84455) Diagnoses Flexor tenosynovitis of finger M65.9 Cervical spondylosis M47.812 Upper back pain M54.9
[2023-06-14 10:04] VITALS: BP 124/78; PULSE 90; TEMP 36.7; O2SAT 100; BMI 29.4
== END 2023-06-14 10:43 | disposition home or self-care (01) ==
PROVIDERS: PCP Internal Medicine; Visit Provider Internal Medicine Rheumatology
DX: M65.9 Synovitis and tenosynovitis, unspecified (principal); M47.812 Spondylosis without myelopathy or radiculopathy, cervical region; M54.9 Dorsalgia, unspecified
CPT/HCPCS: 99213

== ENCOUNTER 2023-07-04 10:04 | Day surgery (SDC) | payer OTHER, SELFPAY ==
--- NOTE | 2023-07-03 10:32 | HO.ANESPROP2 ---
Documented by User: Rosaura Jameson NP 07/03/23 10:32 HPI - Anesthesia Eval Consult details Narrative: 62yo M for Upper Endoscopy and Colonoscopy PMF Active Problems Active Problems: All Active Problems (Updated 06/14/23 @ 14:28 by Ben Meyers MD) Tendinitis of left ankle (Acute) Flexor tenosynovitis of finger (Acute) Cervical spondylosis (Acute) Pure hypercholesterolemia (Acute) Osteoarthritis of left knee (Acute) Upper back pain (Acute) Overweight (BMI 25.0-29.9) (Acute) EMILY (generalized anxiety disorder) (Acute) Mild recurrent major depression (Acute) HSV (herpes simplex virus) anogenital infection (Acute) Tubulovillous adenoma (Acute) Obesity (Acute) GERD (gastroesophageal reflux disease) (Acute) Lumbago with sciatica, left side (Acute) Abdominal bloating (Acute) LLQ pain (Acute) Uncompensated short term memory deficit (Acute) Chronic idiopathic constipation (Acute) Colon cancer screening (Acute) Depression with anxiety (Acute) Neck pain (Acute) Umbilical hernia (Acute) Erectile dysfunction (Acute) Onychomycosis (Acute) Essential hypertension (Acute) Hypothyroidism (Acute) Past Medical History Medical History Depression with anxiety Erectile dysfunction Essential hypertension EMILY (generalized anxiety disorder) GERD (gastroesophageal reflux disease) HSV (herpes simplex virus) anogenital infection Hypothyroidism Mild recurrent major depression Neck pain Obesity Onychomycosis Pure hypercholesterolemia Scoliosis Tubular adenoma of colon Umbilical hernia Family History Family History Father HTN (hypertension) Mother HTN (hypertension) Hypercholesteremia Family/Other HTN (hypertension) Thyroid disease Diabetes FH: mental illness Daughter Thyroid disease Son No problems noted. Brother Substance abuse Surgical History Surgical History Hx of colonoscopy (~2009) Status post excision of lipoma Social History Social History Household Members: None Housing: Apartment Alcohol intake: current Alcohol intake frequency: a few times a month Alcohol type: beer Patient Tobacco Use Status: Never used Tobacco e-Cigarette/Vaping Use: Never Used Second Hand Smoke Exposure: No Are you DNR?: No Advance Directives: No Advance Directives Information Provided: Yes Nutrition Risks: No Nutritional Risk service: No Current occupational status: disabled Cognitive needs: No Hearing needs: No Vision needs: Yes (Glasses) Meds Allergies Allergy/AdvReac Type Severity Reaction Status Date / Time amlodipine Allergy Intermediate leg edema Verified 06/14/23 10:04 carisoprodol [From [facility]] Allergy Intermediate twitching Verified 06/14/23 10:04 jennyfer inhibitors AdvReac Intermediate cough, Verified 06/14/23 10:04 anxiety Home Medications Medication Instructions Recorded Confirmed Last Taken Type tadalafil 10 mg tablet 10 mg PO DAILY 01/10/23 04/30/23 Unknown History polyvinyl alcohol 1.4 % eye drops 1 drp ophthalmic (eye) BID 06/14/23 Unknown History Exam Exam Date and Time: July 03, 2023 1032 Assessment and Plan Assessment Anesthesia Assessment: Chart Reviewed Documented by User: Nasim Archibald MD 07/04/23 12:33 PMFSH Past Medical History Medical History Depression with anxiety Erectile dysfunction Essential hypertension EMILY (generalized anxiety disorder) GERD (gastroesophageal reflux disease) HSV (herpes simplex virus) anogenital infection Hypothyroidism Mild recurrent major depression Neck pain Obesity Onychomycosis Pure hypercholesterolemia Scoliosis Tubular adenoma of colon Umbilical hernia Family History Family History Father HTN (hypertension) Mother HTN (hypertension) Hypercholesteremia Family/Other HTN (hypertension) Thyroid disease Diabetes FH: mental illness Daughter Thyroid disease Son No problems noted. Brother Substance abuse Family history of problems with anesthesia: No Surgical History Surgical History Hx of colonoscopy (~2009) Status post excision of lipoma History of Problems with Anesthesia: No Social History Social History Household Members: None Housing: Apartment Alcohol intake: current Alcohol intake frequency: a few times a month Alcohol type: beer Patient Tobacco Use Status: Never used Tobacco e-Cigarette/Vaping Use: Never Used Second Hand Smoke Exposure: No Are you DNR?: No Advance Directives: No Advance Directives Information Provided: Yes Nutrition Risks: No Nutritional Risk service: No Current occupational status: disabled Cognitive needs: No Hearing needs: No Vision needs: Yes (Glasses) Meds Allergies Allergy/AdvReac Type Severity Reaction Status Date / Time amlodipine Allergy Intermediate leg edema Verified 06/14/23 10:04 carisoprodol [From [facility]] Allergy Intermediate twitching Verified 06/14/23 10:04 jennyfer inhibitors AdvReac Intermediate cough, Verified 06/14/23 10:04 anxiety Home Medications Medication Instructions Recorded Confirmed Last Taken Type tadalafil 10 mg tablet 10 mg PO DAILY 01/10/23 04/30/23 Unknown History polyvinyl alcohol 1.4 % eye drops 1 drp ophthalmic (eye) BID 06/14/23 Unknown History Exam Airway Mallampati Class: I TM Dist: >3cm Neck ROM: Full Loose/Missing/Broken Teeth: Yes, Upper and Lower Heart: ok Lungs: ok Assessment and Plan Assessment Anesthesia Assessment: Anesthesia Plan Discussed Final Anesthetic Review Family History of Problems with Anesthesia: No History of Problems with Anesthesia: No NPO: Yes ASA Class: III Final Preanesthetic Review: No Changes in Pt Med Stat, Meds/Allgs Chart Reviewed, Consent Obtained/Reviewed and Anes Risks/Benef Reviewed Patient Risk: Intermediate Procedure Risk: Intermediate Anesthetic Plan Anesthetic Plan: MAC: and Agree w/ Assess. and Plan Disposition: Standard PACU
[2023-07-04 10:35] VITALS: BP 142/84; PULSE 92; RESP 18; TEMP 36.8; O2SAT 100; BMI 29.4
--- NOTE | 2023-07-04 10:54 | MHC.SHP ---
Pre-Procedural Eval Section A Date of Service: 07/04/23 Section B Chief Complaint: Gastro-esophageal reflux disease without esophagit Details of Present Illness: colon screening Relevant Family History (Specify if Yes): No Relevant Social History: None Present Medications: see Short Stay Collaborative assessment Medical History: Significant History (Depression with anxiety Erectile dysfunction Essential hypertension EMILY (generalized anxiety disorder) GERD (gastroesophageal reflux disease) HSV (herpes simplex virus) anogenital infection Hypothyroidism Mild recurrent major depression Neck pain Obesity Onychomycosis Pure hypercholesterolemia Scoli) History of Previous Operations: Relevant previous surgery/procedure and date(s) (Hx of colonoscopy (~2009) Status post excision of lipoma) Allergies: Allergies Allergy/AdvReac Type Severity Reaction Status Date / Time amlodipine Allergy Intermediate leg edema Verified 06/14/23 10:04 carisoprodol [From [facility]] Allergy Intermediate twitching Verified 06/14/23 10:04 jennyfer inhibitors AdvReac Intermediate cough, Verified 06/14/23 10:04 anxiety Review of Systems Sugical H&P ROS: Negative: Constitution, Cardiovascular, Respiratory, Neurological, Psychiatric, Hem-Onc, Allergic/Immunologic, Gastrointestinal, Genitourinary, Musculoskeletal, Integumentary, Endocrine and Eyes/Ears/Nose/Throat Exam Surgical H&P Exam: Normal: HEENT, Normal: Heart, Normal: Lungs, Normal: Extremities, Normal: Abdomen, Normal: Skin and Normal: Neurological Plan Diagnosis/Plan: Unchanged I have reviewed the history and physical and performed a pertinent physical examination on my patient. No changes have occurred unless specified. Time Spent With Patient Time: Total time managing care of this patient today ____ minutes.
[2023-07-04] MEDS: Lactated Ringers 1,000 ML 100 ML IVCONT (10:58)
--- NOTE | 2023-07-04 12:27 | W.PM.OPN ---
Operative Note Operative Note Date of Service: 07/04/23 Narrative: Operative Information Procedure Description: EGD, Colonoscopy Indication: [] Anesthesia: MAC FLEXIBLE TRANSORAL UPPER GASTROINTESTINAL ENDOSCOPY AND COLONOSCOPY PROCEDURE NOTE UPPER ENDOSCOPY Consent: Indications for the procedure and potential complications of bleeding, perforation, reaction to medications and missed diagnosis were discussed with the patient and informed consent was obtained. Instrument: Olympus GIF H 190 J mid size upper endoscope Monitoring: Vital signs and clinical assessment, continuous EKG monitoring, Pulse oximetry, Carbon Dioxide monitoring and blood pressure monitoring were done throughout the procedure. Procedure: The patient was placed in the left lateral decubitis position and pre-procedure medications were administered and a bite block was placed. The endoscope was inserted into the mouth and advanced under direct vision to the third part of duodenum. A careful inspection was made as the upper endoscope was withdrawn including a retroflexed examination of the proximal stomach; Findings and interventions are described below. Findings: Larynx:normal Esophagus: GE junction at 35 cm, diaphragm hiatus at 38 cm, esophagitis, schatzki ring Stomach: Normal mucosa. Biopsies were obtained to r/o h pylori. Grade 2 flap valve on retroflexed examination of the cardia. Duodenum: Normal bulb and descending duodenum, Intervention: Biopsies as noted above COLONOSCOPY Instrument: Olympus variable stiffness ADULT scope 190L Colonoscopy Monitoring: Vital signs and clinical assessment, continuous EKG monitoring, Pulse oximetry, Carbon Dioxide monitoring and blood pressure monitoring were done throughout the procedure. Colon withdrawal time was 12 minutes. Procedure: The patient was placed in the left lateral decubitis position and pre-procedure medications were administered. After a digital rectal examination of the ano-rectum, the video colonoscope was inserted into the rectum and advanced through the colon to the cecum/TI. The colonoscope was slowly withdrawn in a retrograde panoramic fashion and the colon mucosa was carefully examined including a retroflexed view of the rectum. Findings and interventions are described below. Procedure Difficulty:eaasy Findings: Terminal Ileum-normal Cecum: 5-6 mm sessile polyp removed with cold forceps Ascending Colon: 5-6 mm sessile polyp removed with cold forceps Transverse Colon - 6-8 mm sessile polyp removed with cold forceps Descending Colon: 10 mm sessile polyp removed with cold snare Sigmoid Colon: normal Rectum: Retroflexion with small internal hemorrhoids, grade I Anorectum - normal Colon preparation: [place] Bowel Preparation Scale Right colon; 3 Transverse colon: 3 Left colon; 3 (0 = Unprepared colon segment with mucosa not seen due to solid stool that cannot be cleared. 1 = Portion of mucosa of the colon segment seen, but other areas of the colon segment not well seen due to staining, residual stool and/or opaque liquid. 2 = Minor amount of residual staining, small fragments of stool and/or opaque liquid, but mucosa of colon segment seen well. 3 = Entire mucosa of colon segment seen well with no residual staining, small fragments of stool or opaque liquid) Impression and Post Procedure Diagnosis: Endoscopy Findings: schatzki ring, hiatal hernia esophagitis Colonoscopy Findings: polyps internal hemorrhoids Plan: Await Pathology results Repeat Colonoscopy in 3-4 years or earlier if clinically indicated High fiber diet leaflet avoid straining at stool, epsom salts and sitz bath, anusol supps or cream gerd precautions Above findings were reviewed with the patient and relevant handouts were provided if indicated.
[2023-07-04 12:53] VITALS: BP 109/72; PULSE 71; RESP 18; TEMP 37.3; O2SAT 93
[2023-07-04 13:08] VITALS: BP 126/86; PULSE 76; RESP 16; TEMP 36.5; O2SAT 95
== END 2023-07-04 13:14 | disposition home or self-care (01) ==
PROVIDERS: PCP Internal Medicine; Visit Provider Internal Medicine Gastroenterology
PROC: (CPT 45385; principal; 2023-07-04 12:00)
DX: Z12.11 Encounter for screening for malignant neoplasm of colon (principal); Z86.010 Personal history of colon polyps; D12.0 Benign neoplasm of cecum; D12.2 Benign neoplasm of ascending colon; D12.3 Benign neoplasm of transverse colon; D12.4 Benign neoplasm of descending colon; K64.0 First degree hemorrhoids; K59.04 Chronic idiopathic constipation; K58.9 Irritable bowel syndrome, unspecified; K21.9 Gastro-esophageal reflux disease without esophagitis; K22.2 Esophageal obstruction; K20.80 Other esophagitis without bleeding; K44.9 Diaphragmatic hernia without obstruction or gangrene; Z79.899 Other long term (current) drug therapy; Z88.8 Allergy status to other drugs, medicaments and biological substances; I10 Essential (primary) hypertension; E03.9 Hypothyroidism, unspecified; E78.00 Pure hypercholesterolemia, unspecified
CPT/HCPCS: 45385; 45380; 43239; 88305; 88342; J3010

== ENCOUNTER → 2023-07-04 10:04 | Outpatient (BNV) | payer OTHER, SELFPAY | PROVIDERS: PCP Internal Medicine; Visit Provider Internal Medicine Gastroenterology | DX: Z12.11 Encounter for screening for malignant neoplasm of colon (principal); K21.00 Gastro-esophageal reflux disease with esophagitis, without bleeding; K22.2 Esophageal obstruction; D12.2 Benign neoplasm of ascending colon; D12.3 Benign neoplasm of transverse colon; D12.4 Benign neoplasm of descending colon; K64.0 First degree hemorrhoids | CPT/HCPCS: 43239; 45380; 45385 ==

== ENCOUNTER 2023-08-24 12:24 | Outpatient (AMB) | payer OTHER, SELFPAY ==
--- NOTE | 2023-08-24 12:26 | A.OFFVIS_ITS ---
Intake Vital Signs 08/24/23 12:30 Height 5 ft 7 in Weight 187 lb BMI 29.3 BP 141/74 H Blood Pressure Location Lt brachial Position Sitting Pulse 91 Intake Visit Reasons: s/p colonoscopy Intake Note: Patient follow up for Colonoscopy/EGD results. Patient denies any GI issues. 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: Yes Accompanied by: Self / Same As Patient Allergies amlodipine Allergy (Intermediate, Verified 08/24/23 12:25) leg edema carisoprodol [From SOMA] Allergy (Intermediate, Verified 08/24/23 12:25) twitching jennyfer inhibitors Adverse Reaction (Intermediate, Verified 08/24/23 12:25) cough, anxiety HPI s/p colonoscopy HPI Details Assessment & Plan (1) GERD (gastroesophageal reflux diseas e): Code(s): K21.9 - Gastro-esophageal reflux disease without esophagitis Qualifiers: Esophagitis presence: esophagitis presence not specified Qualified Code(s): K21.9 - Gastro-esophageal reflux disease without esophagitis Plan: [place] #Marcello live He needs a repeat colonoscopy r/t his 2020 TVA. He continues to do well on his Trulance, creon, docusate, simethicone and omeprazole. He will have left abd cramping when he eats heavier foods like pork or ribs; but mostly he is doing well. He is quite agreeable to scheduling a repeat colonoscopy. There are no prior problems with anesthesia or sedation. He denies any cardiac or respiratory problems. Hx of anogenital herpes, no other ID problems PHX TVA. ROV 6 mos. (2) Chronic idiopathic constipation: Code(s): K59.04 - Chronic idiopathic constipation (3) Tubulovillous adenoma: Comment: 03/2021 scope 8 mm sesslie and a TA as we ll, repeat 1-2 years. Code(s): D36.9 - Benign neoplasm, unspecified site (4) Pre-op examination: Code(s): Z01.818 - Encounter for other preprocedural examination Medications: New peg 3350-electrolytes 236-22.74-6.74 -5.86 gram (Golytely) until fecal effluent is clear; do not exceed a total volume of 2,000 mL 240 mL PO Q10M 1 day 4,000 mL 0RF Z12.11 - Encounter for screening for malignant neoplasm of colon Refilled docusate sodium (Colace) 100 mg PO DAILY 30 days 30 caps 6RF K59.01 - Slow transit constipation wnlcqs-bxrwrxtz-upnhosz 24,000-76,000 -120,000 unit (Creon) administer with meals and/or snacks 1 cap PO QID 30 days 120 caps 6RF K58.9 - Irritable bowel syndrome without diarrhea omeprazole 20 mg PO DAILY 30 days 30 caps 6RF plecanatide (Trulance) 3 mg PO DAILY 30 days 30 tabs 6RF K59.04 - Chronic idiopathic constipation simethicone after meals 180 mg PO QID 30 days 120 caps 6RF R14.0 - Abdominal distension (gaseous) EGD/COLONOSCOPY 07/04/23 Findings: Larynx:normal Esophagus: GE junction at 35 cm, diaphragm hiatus at 38 cm, esophagitis, schatzki ring Stomach: Normal mucosa. Biopsies were obtained to r/o h pylori. Grade 2 flap valve on retroflexed examination of the cardia. Duodenum: Normal bulb and descending duodenum, Findings: Terminal Ileum-normal Cecum: 5-6 mm sessile polyp removed with cold forceps Ascending Colon: 5-6 mm sessile polyp removed with cold forceps Transverse Colon - 6-8 mm sessile polyp removed with cold forceps Descending Colon: 10 mm sessile polyp removed with cold snare Sigmoid Colon: normal Rectum: Retroflexion with small internal hemorrhoids, grade I Anorectum - normal Impression and Post Procedure Diagnosis: Endoscopy Findings: schatzki ring, hiatal hernia esophagitis Colonoscopy Findings: polyps internal hemorrhoids Plan: Await Pathology results Repeat Colonoscopy in 3-4 years or earlier if clinically indicated High fiber diet leaflet avoid straining at stool, epsom salts and sitz bath, anusol supps or cream gerd precautions BIOPSY Received: 07/04/23 Diagnosis A. Stomach, biopsy: Gastric body mucosa with congestion and focal minimal chronic inactive inflammation; negative for H pylori, intestinal metaplasia and dysplasia. B. Gastroesophageal junction, biopsy: Squamocolumnar mucosa with focal minimal chronic inactive inflammation; negative for intestinal metaplasia and dysplasia. C. Esophagus, distal, biopsy: Squamous mucosa with no specific change; no columnar mucosa present. D. Esophagus, proximal, biopsy: Squamous mucosa with few focal intraepithelial neutrophils consistent with esophagitis; no columnar mucosa present. E. Colon, cecal polyp: Tubular adenoma; negative for high-grade dysplasia and carcinoma. F. Colon, ascending, polyp: Tubular adenoma, likely excised; negative for high- grade dysplasia and carcinoma. G. Colon, transverse, polyp: Tubular adenoma; negative for high-grade dysplasia and carcinoma. H. Colon, descending, polyp: Sessile serrated lesion/polyp without dysplasia TODAY'S VISIT M[place] #[id number], Teofilo The procedure will need to be repeated in 3 years r/t 4 TA's. The procedure was well tolerated. The results were explained and the patient is agreeable to the follow-up interval as stated. The bowel pattern has returned to normal. Education was provided to tell any 1st degree relatives about their findings to be sure that they are screened by age 45. Educated that they will be put on a recall list when it is time for their repeat scope but should they move out of state or away from the hospital they will need to remember along with their primary to repeat the procedure in a timely fashion to avoid any adverse complications. He continues to do well on his Trulance, creon, docusate, simethicone and omeprazole. Return office visit in 6 months [facility] Medical History (Updated 08/24/23 @ 16:40 by SAMY Guerra) Pure hypercholesterolemia EMILY (generalized anxiety disorder) Mild recurrent major depression HSV (herpes simplex virus) anogenital infection Tubular adenoma of colon Depression with anxiety Neck pain Umbilical hernia Scoliosis Erectile dysfunction Onychomycosis Essential hypertension Hypothyroidism Obesity GERD (gastroesophageal reflux disease) Surgical History (Updated 08/24/23 @ 16:40 by SAMY Guerra) Status post excision of lipoma Hx of colonoscopy (~2009) Family History Father HTN (hypertension) Mother HTN (hypertension) Hypercholesteremia Family/Other HTN (hypertension) Thyroid disease Diabetes FH: mental illness Daughter Thyroid disease Son No problems noted. Brother Substance abuse Social History Household Members: None Housing: Apartment Alcohol intake: current Alcohol intake frequency: a few times a month Alcohol type: beer Patient Tobacco Use Status: Never used Tobacco e-Cigarette/Vaping Use: Never Used Second Hand Smoke Exposure: No service: No Current occupational status: disabled Cognitive needs: No Hearing needs: No Vision needs: Yes (Glasses) Review of Systems Const Denies fatigue, Denies fever(s), Denies night sweats, Denies poor appetite and Denies weight loss Eyes Details: glasses Reports requires corrective lenses ENT Reports Normal hearing present, Denies dental pain, Denies dysphagia, Denies hearing loss, Denies mouth pain, Denies odynophagia, Denies throat swelling, Denies tongue swelling and Reports other (Dentition adequate) Card Reports no additional complaints Resp Reports no additional complaints GI Denies abdominal pain, Denies melena, Reports bloating, Denies hematochezia, Reports constipation, Denies GI cramping, Denies dysphagia, Denies excessive flatus, Denies early satiety, Reports heartburn, Denies diarrhea, Denies nausea, Denies odynophagia, Denies vomiting and Denies hematemesis Skin/Breast Denies pruritus, Denies lesions, Denies rash and Denies jaundice Neuro Reports Normal hearing present and Denies Abnormal speech present Endo Denies fatigue Aller/Immun Denies throat swelling and Denies tongue swelling Physical Exam Vital Signs: Last Vital Signs Pulse 91 08/24/23 12:30 BP 141/74 H 08/24/23 12:30 BMI result Body Mass Index 29.3 Const General: cooperative, no acute distress, well developed and well groomed Nutritional Appearance: well nourished and overweight Orientation/consciousness: oriented to person, oriented to place and oriented to time Limitations: language barrier HEENT Head: Yes normocephalic and Yes atraumatic Eyes General: appearance normal, both eyes and all related structures Pupils: Equal, round and reactive pupils present Neck Neck: Yes normal visual inspection and Yes no lymphadenopathy Thyroid: Thyroid normal Resp Effort & Inspection: normal respiratory effort and able to speak in complete sentences Auscultation: clear to auscultation bilaterally Cardio Rate: regular rate Rhythm: regular rhythm Heart sounds: Normal, physiologic split S2 sound present Peripheral pulses: radial pulses present and posterior tibial pulses present GI Inspection: No distended, No Abdominal panniculus present and Yes obesity Palpation (GI): Soft to palpation, nontender, no guarding, not rigid and No hepatosplenomegaly present Percussion: Yes normal to percussion Auscultation: normal bowel sounds Rectal Exam - Male: Yes deferred Skin General skin exam: no rashes or lesions noted, turgor normal, skin not dry, no jaundice, No spider nevi and no striae Rashes: no rashes Nails: normal Neuro General: oriented to person, oriented to place and oriented to time Cranial nerves: Yes Equal, round and reactive pupils present and Yes Normal hearing present Speech: No Abnormal speech present Extrem General: Yes normal to inspection, No clubbing, No cyanosis and No edema Psych Appearance: grossly normal and well kempt Mental Status: mental status grossly normal Speech and movement: Normal speech and movement present Affect: normal affect Attitude: cooperative Thought process: Normal thought process present and not confabulating Thought content: Normal thought content present Insight: Limited insight present (Psych) Judgement: Limited judgement present (Psych) Assessment & Plan Assessment & Plan (1) Tubulovillous adenoma: Comment: 07/2023=4 TA's repeat in 3 years; 03/2021=TVA 8 mm sessile and a TA as well Code(s): D36.9 - Benign neoplasm, unspecified site Plan: [place] #[id number] The procedure will need to be repeated in 3 years r/t 4 TA's. The procedure was well tolerated. The results were explained and the patient is agreeable to the follow-up interval as stated. The bowel pattern has returned to normal. Education was provided to tell any 1st degree relatives about their findings to be sure that they are screened by age 45. Educated that they will be put on a recall list when it is time for their repeat scope but should they move out of state or away from the hospital they will need to remember along with their primary to repeat the procedure in a timely fashion to avoid any adverse complications. He continues to do well on his Trulance, creon, docusate, simethicone and omeprazole. Return office visit in 6 months (2) Chronic idiopathic constipation: Code(s): K59.04 - Chronic idiopathic constipation (3) GERD (gastroesophageal reflux disease): Code(s): K21.9 - Gastro-esophageal reflux disease without esophagitis Qualifiers: Esophagitis presence: esophagitis presence not specified Qualified Code(s): K21.9 - Gastro-esophageal reflux disease without esophagitis Medications: Refilled docusate sodium (Colace) 100 mg PO DAILY 30 days 30 caps 6RF K59.01 - Slow transit constipation plecanatide (Trulance) 3 mg PO DAILY 30 days 30 tabs 6RF K59.04 - Chronic idiopathic constipation simethicone after meals 180 mg PO QID 30 days 120 caps 6RF R14.0 - Abdominal distension (gaseous) omeprazole 20 mg PO DAILY 30 days 30 caps 6RF eeauro-xplumlvm-yvifcdh 24,000-76,000 -120,000 unit (Creon) administer with meals and/or snacks 1 cap PO QID 30 days 120 caps 6RF K58.9 - Irritable bowel syndrome without diarrhea Discontinued peg 3350-electrolytes 236-22.74-6.74 -5.86 gram (Golytely) until fecal effluent is clear; do not exceed a total volume of 2,000 mL Discontinued Reason: Patient Completed Course 240 mL PO Q10M 1 day 4,000 mL 0RF Z12.11 - Encounter for screening for malignant neoplasm of colon Coding Level of Care Code Est Pt Level 3 (73449) Diagnoses Tubulovillous adenoma D36.9 Chronic idiopathic constipation K59.04 Gastroesophageal reflux disease, unspecified whether esophagitis present K21.9 Esophagitis presence: esophagitis presence not specified
[2023-08-24 12:30] VITALS: BP 141/74; PULSE 91; BMI 29.3
== END 2023-08-24 13:11 | disposition home or self-care (01) ==
PROVIDERS: PCP Internal Medicine; Visit Provider Nurse Practitioner
DX: D36.9 Benign neoplasm, unspecified site (principal); K59.04 Chronic idiopathic constipation; K21.9 Gastro-esophageal reflux disease without esophagitis
CPT/HCPCS: 99213

== ENCOUNTER → 2023-08-24 12:24 | Outpatient (BNVA) | payer OTHER, SELFPAY | PROVIDERS: PCP Internal Medicine; Visit Provider Nurse Practitioner | DX: D36.9 Benign neoplasm, unspecified site (principal); K59.04 Chronic idiopathic constipation; K21.9 Gastro-esophageal reflux disease without esophagitis | CPT/HCPCS: 99212 ==

== ENCOUNTER 2023-08-27 10:02 | Outpatient (AMB) | payer OTHER, SELFPAY ==
--- NOTE | 2023-08-27 10:15 | MHC.PC.OV ---
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: No Accompanied by: Self / Same As Patient Allergies amlodipine Allergy (Intermediate, Verified 08/27/23 10:21) leg edema carisoprodol [From SOMA] Allergy (Intermediate, Verified 08/27/23 10:21) twitching jennyfer inhibitors Adverse Reaction (Intermediate, Verified 08/27/23 10:21) cough, anxiety Medication List - Last Reconciled 08/27/23 by Cindy Llanes MD docusate sodium (Colace) 100 mg PO DAILY 30 days hydrochlorothiazide 25 mg PO DAILY 90 days levothyroxine 112 mcg PO DAILY 90 days dtyxjv-dvjvmtes-xnjgadd 24,000-76,000 -120,000 unit (Creon) 1 cap PO QID 30 days loratadine 10 mg PO DAILY omeprazole 20 mg PO DAILY 30 days plecanatide (Trulance) 3 mg PO DAILY 30 days polyvinyl alcohol 1.4% 1 drp ophthalmic (eye) BID pravastatin 20 mg PO DAILY 90 days simethicone 180 mg PO QID 30 days tadalafil 10 mg PO DAILY Tobacco use date assessed: 12/25/22 Dental Screening Dental Screen Date: 08/27/23 Did you have a dental visit in the last 12 months?: No Did you have a dental problem in the last 6 months where you did not have access to dental care?: No Was dental information given to patient?: Patient has dentist HPI HPI Comments History of Present Illness Details This is a 62-year-old male with mild recurrent major depression and thoracic compression fracture that comes for his physical exam. Depression has been in remission. Complains of thoracic spine pain and x-ray shows level scoliosis, degenerative disc disease and mild T11 wedge compression fracture. Due to this fracture I will order bone density to rule out osteoporosis. Colonoscopy was done 2022 showing tubular adenoma. No chest pain or shortness of breath. [facility] Medical History (Updated 08/27/23 @ 10:31 by Cindy Llanes MD) Pure hypercholesterolemia EMILY (generalized anxiety disorder) Mild recurrent major depression HSV (herpes simplex virus) anogenital infection Tubular adenoma of colon Depression with anxiety Neck pain Umbilical hernia Scoliosis Erectile dysfunction Onychomycosis Essential hypertension Hypothyroidism Obesity GERD (gastroesophageal reflux disease) Surgical History Status post excision of lipoma Hx of colonoscopy (~2009) Family History Father HTN (hypertension) Mother HTN (hypertension) Hypercholesteremia Family/Other HTN (hypertension) Thyroid disease Diabetes FH: mental illness Daughter Thyroid disease Son No problems noted. Brother Substance abuse Social History Household Members: None Housing: Apartment Alcohol intake: current Alcohol intake frequency: a few times a month Alcohol type: beer Patient Tobacco Use Status: Never used Tobacco e-Cigarette/Vaping Use: Never Used Second Hand Smoke Exposure: No service: No Current occupational status: disabled Cognitive needs: No Hearing needs: No Vision needs: Yes (Glasses) Questionnaire Thrive Questionnaire Date Thrive assessed: 12/25/22 EMILY-7 AMB Questionnaire EMILY-7 Date EMILY - 7 assessed: 12/25/22 Source: Developed by Drs. Billy Hagen, Melida Vasquez, Compa Mendez and colleagues, with an educational eze from [email or web address]. Review of Systems Const All systems reviewed & are unremarkable except as noted in HPI and below Eyes Reports no additional complaints, Denies change in vision and Denies other visual disturbances Card Denies chest pain at rest, Denies chest pain with activity, Denies edema, Denies irregular heart rhythm, Denies claudication, Denies dyspnea, Denies dyspnea on exertion, Denies orthopnea, Denies paroxysmal nocturnal dyspnea and Denies slow heart rate Resp Denies cough, Denies dyspnea and Denies dyspnea on exertion GI Denies abdominal pain, Denies change in bowel habits, Denies excessive flatus, Denies nausea and Denies vomiting Denies urinary hesitancy, Denies urinary incontinence and Denies urinary urgency Musc Denies abnormal gait, Reports back pain, Denies atrophy, Denies deformity and Denies limited range of motion Skin/Breast Denies bleeding lesions, Denies changing lesions and Denies rash Neuro Denies abnormal gait and Denies lack of coordination Physical exam (Primary Care) Vital Signs: Last Vital Signs BP 136/88 08/27/23 10:16 BMI result Body Mass Index 30.1 Tobacco/Smoking Status: Tobacco use Status Tobacco use date assessed 12/25/22 08/27/23 10:18 Patient Tobacco Use Status Never used Tobacco 08/27/23 10:18 e-Cigarette/Vaping Use Never Used 08/27/23 10:18 Thrive Assessment: Date of Thrive Assessment Date Thrive assessed 12/25/22 08/27/23 10:18 Const Orientation/consciousness: patient oriented x3 HENMT Head: Yes normal to inspection, Yes normocephalic and Yes atraumatic Ears: external ears normal Eyes General: appearance normal, both eyes and all related structures Eyelids: Yes eyelids normal Conjunctivae: conjunctivae normal Neck Neck: Yes normal visual inspection and Yes supple Resp Effort & Inspection: normal respiratory effort Auscultation: clear to auscultation bilaterally Cardio Jugular venous distension: no JVD Rate: regular rate Rhythm: regular rhythm Heart sounds: S1 normal heart sound present and S2 normal heart sound present GI Inspection: Yes normal to inspection Palpation (GI): Soft to palpation and nontender Auscultation: normal bowel sounds Skin General skin exam: no rashes or lesions noted Neuro General: patient oriented x3 and no focal motor deficits Extrem General: Yes full ROM Psych Appearance: grossly normal Office Procedures Flu Questionnaire Does the patient have a severe egg allergy?: No Does the patient have severe life threatening allergies?: No Does the patient have a fever or illness today?: No Has the patient ever had Guillain-[place] Syndrome?: No Has the patient ever had any past reaction to a flu shot?: No Immunizations flu vacc [id number] 6mos up(PF) 60 mcg(15 mcgx4)/0.5 mL IM syringe Performing Provider: Cindy Llanes MD Performing Location: [facility] Administered by: SUNDAR Patel on 08/27/23 10:48 Dose Route Admin Location Dispensed Lot Number Expiration Date [facility] 0.5 mL IM Left Deltoid 0.5 mL [id number] 04/20/24 [id number] [employer] VIS Given Date VIS Provided VIS Publication Date 08/27/23 Single Vaccine 21 Eligibility Eligibility Date Funding Source Not [facility] Eligible 08/27/23 Private Assessment and Plan Assessment & Plan (1) Physical exam: Code(s): Z00.00 - Encounter for general adult medical examination without abnormal findings Plan: Repeat in a year (2) Mild recurrent major depression: Code(s): F33.0 - Major depressive disorder, recurrent, mild Plan: In remission (3) Thoracic compression fracture: Code(s): S22.000A - Wedge compression fracture of unspecified thoracic vertebra, initial encounter for closed fracture Plan: Start NSAIDs as needed. Orders: Orders Influenza [id number] Immunization Today Z23 - Encounter for immunization Lipid Panel Today E78.5 - Hyperlipidemia, unspecified Thyroid Stimulating Hormone Today E03.8 - Other specified hypothyroidism, E06.3 - Autoimmune thyroiditis XR DEXA axial skeleton Today S22.000A - Wedge compression fracture of unspecified thoracic vertebra, initial encounter for closed fracture Vitamin B12 and Folate Today E53.8 - Deficiency of other specified B group vitamins Vitamin D 25-OH Total Today E55.9 - Vitamin D deficiency, unspecified Comprehensive [place]. Panel Fast Today E78.00 - Pure hypercholesterolemia, unspecified Coding Level of Care Code Est Pt Prev Care 40-64y(27774) Diagnoses Physical exam Z00.00 Mild recurrent major depression F33.0 Thoracic compression fracture S22.000A Time Spent (min) 32
[2023-08-27 10:16] VITALS: BP 136/88; BMI 30.1
== END 2023-08-27 10:47 | disposition home or self-care (01) ==
PROVIDERS: PCP Internal Medicine; Visit Provider Internal Medicine
DX: Z00.00 Encounter for general adult medical examination without abnormal findings (principal); F33.0 Major depressive disorder, recurrent, mild; S22.000A Wedge compression fracture of unspecified thoracic vertebra, initial encounter for closed fracture; Z23 Encounter for immunization
CPT/HCPCS: 90471; 90686; 99396

== ENCOUNTER 2023-09-20 08:50 | Outpatient (REF) | payer OTHER, SELFPAY ==
--- NOTE | ~2023-09-20 | MM_ITS ---
EXAMINATION: BONE DENSITOMETRY CLINICAL INDICATION: Wedge compression fracture of unspecified thoracic vertebra. COMPARISON: This is the patient's baseline examination. TECHNIQUE: Using a Fon DXA System (software version: 13.1) manufactured by [employer], dual-energy x-ray absorptiometry was performed of the lumbar spine and left hip. The images are of good technical quality. Summary results are attached. FINDINGS: LEFT FEMUR, NECK: BMD 0.861 g/cm2, Z-score -0.7, T-score -1.6, osteopenia. LEFT FEMUR, TOTAL: BMD 1.012 g/cm2, Z-score -0.2, T-score -0.6, normal. AP SPINE L1-L2 (excluding L3 and L4): The data of L1-L4 has been changed to exclude the L3 and L4 vertebral bodies, because degenerative sclerosis at these levels may cause overestimation of lumbar spine density. BMD 1.486 g/cm2, Z-score 2.6, T-score 2.4, normal. IDENTIFIED RISK FACTORS: Osteoporosis. HISTORY OF FRACTURE: None listed. MEDICATIONS: Calcium, vitamin D. MM/XR DEXA axial skeleton IMPRESSION: 1. DIAGNOSIS: Osteopenia based on the lowest T-score value of -1.6 in the femoral neck applying World Health Organization criteria. 2. 10-YEAR FRACTURE RISK PREDICTION, FRAX: Major osteoporotic fracture (clinical spine, forearm, hip or shoulder) 4.6%. Hip fracture 0.7%. 3. Treatment Recommendations: NOF guidelines recommend consideration for treatment in postmenopausal women and men age 50 and older presenting with the following: -A hip or vertebral (clinical or morphometric) fracture. -T-score less than or equal to -2.5 at the femoral neck or spine after appropriate evaluation to exclude secondary causes. -Low bone mass at the hip or spine and a 10-year fracture probability by FRAX of greater than or equal to 3% for hip fracture or greater than or equal to 20% for major osteoporotic fracture based on the [place] adapted WHO algorithm. 4. Other Recommendations: All treatment decisions require clinical judgment and consideration of individual patient factors, including patient preferences, comorbidities, previous drug use, risk factors not captured in the FRAX model (e.g. frailty, falls, vitamin D deficiency, increased bone turnover, interval significant decline in bone density) and possible under or overestimation of fracture risk by FRAX. Additional medical evaluation for secondary cause of low bone mineral density may be appropriate. FUTURE SCAN RECOMMENDATION: People with diagnosed cases of osteoporosis or at high risk for fracture should have regular bone mineral density tests. For patients eligible for Medicare, routine testing is allowed once every 2 years. The testing frequency can be increased to one year for patients who have rapidly progressing disease, those who are receiving or discontinuing medical therapy to restore bone mass, or have additional risk factors.
== END 2023-09-20 08:51 | disposition home or self-care (01) ==
LOC: HO.MAMMO 08:50
PROVIDERS: PCP Internal Medicine; Visit Provider Internal Medicine
DX: Z13.820 Encounter for screening for osteoporosis (principal); S22.000A Wedge compression fracture of unspecified thoracic vertebra, initial encounter for closed fracture
CPT/HCPCS: 77080

== ENCOUNTER 2023-11-16 06:58 | Outpatient (REF) | payer OTHER, SELFPAY ==
[2023-11-16 07:49] LABS: Alanine Aminotransferase 22 U/L (0-40); Albumin Level 4.4 g/dL (3.5-5.0); Alkaline Phosphatase 87 U/L (39-117); Anion Gap 13 (12-20); Aspartate Amino Transferase 22 U/L (5-37); Bilirubin Total 0.8 mg/dL (0.0-1.0); Blood Urea Nitrogen 19 mg/dL (9-16); Calcium 9.2 mg/dL (8.4-10.2); Carbon Dioxide 27 mmol/L (22-29); Chloride 102 mmol/L (96-108); Cholesterol 170 mg/dL (<200); Estimated Glomerular Filt Rate 59; Glucose Fasting 94 mg/dL (60-99); HDL Cholesterol 39 mg/dL (>40); LDL Cholesterol Calculated 112 mg/dL (<100); Potassium 3.2 mmol/L (3.3-5.1); Sodium 139 mmol/L (135-145); Total Protein 7.3 g/dL (6.5-8.0); Triglycerides 95 mg/dL (<150)
[2023-11-16 08:04] LABS: Thyroid Stimulating Hormone 0.57 uIU/mL (0.32-4.0); Vitamin D 25-OH Total 32.2 ng/mL (>30)
[2023-11-16 08:29] LABS: Folate 15.7 ng/mL (> or = 4.0); Vitamin B12 492 pg/mL (200-900)
== END 2023-11-16 06:59 | disposition home or self-care (01) ==
LOC: HO.LAB 06:58
PROVIDERS: PCP Internal Medicine; Visit Provider Internal Medicine
DX: E78.5 Hyperlipidemia, unspecified (principal); E55.9 Vitamin D deficiency, unspecified; E78.00 Pure hypercholesterolemia, unspecified; E03.8 Other specified hypothyroidism; E06.3 Autoimmune thyroiditis; E53.8 Deficiency of other specified B group vitamins
CPT/HCPCS: 36415; 80053; 80061; 82306; 82607; 82746; 84443

== ENCOUNTER 2023-12-11 07:01 | Outpatient (REF) | payer OTHER, SELFPAY ==
[2023-12-11 07:40] LABS: Potassium 3.6 mmol/L (3.3-5.1)
== END 2023-12-11 07:02 | disposition home or self-care (01) ==
LOC: HO.LAB 07:01
PROVIDERS: PCP Internal Medicine; Visit Provider Internal Medicine
DX: E87.6 Hypokalemia (principal)
CPT/HCPCS: 36415; 84132

== ENCOUNTER 2023-12-18 09:52 | Outpatient (AMB) | payer OTHER, SELFPAY ==
[2023-12-18 11:47] VITALS: BP 132/78; PULSE 88; TEMP 36.9; O2SAT 97; BMI 30.2
--- NOTE | 2023-12-18 11:47 | AM.OFFWIN_ITS ---
Intake Vital Signs 3 12/18/23 11:47 Height 5 ft 7 in Weight 193 lb BMI 30.2 BP 132/78 Blood Pressure Location Lt brachial Position Sitting Pulse 88 Pulse Source Pulse Oximeter Temp 98.5 F Temp Source Temporal Artery Scan Pulse Oximetry (%) 97 Oxygen Delivery Method Room Air Intake Visit Reasons: EST/upper back pain (lobby masked) Intake Note: pt is here today for upper back pain started yesterday Patient Tobacco Use Status: Never used Tobacco Allergies amlodipine Allergy (Intermediate, Verified 12/18/23 11:48) leg edema carisoprodol [From SOMA] Allergy (Intermediate, Verified 12/18/23 11:48) twitching jennyfer inhibitors Adverse Reaction (Intermediate, Verified 12/18/23 11:48) cough, anxiety Medication List - Last Reconciled 12/18/23 by Andreea Lenz MD blood pressure monitor As directed docusate sodium (Colace) 100 mg PO DAILY 30 days hydrochlorothiazide 25 mg PO DAILY 90 days levothyroxine 112 mcg PO DAILY 90 days ggamuo-vheonfah-lvpkreg 24,000-76,000 -120,000 unit (Creon) 1 cap PO QID 30 days loratadine 10 mg PO DAILY nabumetone 750 mg PO BID 90 days omeprazole 20 mg PO DAILY 30 days plecanatide (Trulance) 3 mg PO DAILY 30 days polyvinyl alcohol 1.4% 1 drp ophthalmic (eye) BID potassium chloride ER 10 mEq PO DAILY 10 days pravastatin 20 mg PO DAILY 90 days [recliner As directed] simethicone 180 mg PO QID 30 days tadalafil 10 mg PO DAILY tizanidine 4 mg PO BID PRN 5 days Do you need a note to return to daycare/school/sports/work: No HPI EST/upper back pain (lobby masked) 2 HPI0 Details Patient is 63 year gentlemen had flu-like symptoms 2 weeks ago And still have cough which is mostly dry but sometimes also spit up phlegm quintana to slightly colored Complaining of upper back pain since he has started coughing There is no fever no chills no nausea no vomiting pain On examination is chest is clear Pain is located locally upper thoracic spine Patient have a script for nabumetone 750 mg that he is not taking I would recommend to start taking medication in the morning with breakfast Drink lots of water add some vitamin-C His chest cold is already getting better, might take a few more days. Since his lungs are clear there is no need for x-ray [facility]LY [facility] Medical History Pure hypercholesterolemia EMILY (generalized anxiety disorder) Mild recurrent major depression HSV (herpes simplex virus) anogenital infection Tubular adenoma of colon Depression with anxiety Neck pain Umbilical hernia Scoliosis Erectile dysfunction Onychomycosis Essential hypertension Hypothyroidism Obesity GERD (gastroesophageal reflux disease) Surgical History Status post excision of lipoma Hx of colonoscopy (~2009) Family History Father HTN (hypertension) Mother HTN (hypertension) Hypercholesteremia Family/Other HTN (hypertension) Thyroid disease Diabetes FH: mental illness Daughter Thyroid disease Son No problems noted. Brother Substance abuse Social History Household Members: None Housing: Apartment Alcohol intake: current Alcohol intake frequency: a few times a month Alcohol type: beer Patient Tobacco Use Status: Never used Tobacco e-Cigarette/Vaping Use: Never Used Second Hand Smoke Exposure: No service: No Current occupational status: disabled Cognitive needs: No Hearing needs: No Vision needs: Yes (Glasses) Review of Systems Const All systems reviewed & are unremarkable except as noted in HPI and below Physical Exam Vital Signs: Last Vital Signs Temp 98.5 F 12/18/23 11:47 Pulse 88 12/18/23 11:47 BP 132/78 12/18/23 11:47 Pulse Ox 97 12/18/23 11:47 Oxygen Delivery Method Room Air 12/18/23 11:47 BMI result Body Mass Index 30.2 Const General: no acute distress HEENT Other: Mild throat erythema present, uvula midline, no exudate. Ears: mastoids normal General nose exam: Normal external nose present Throat: Yes posterior oropharynx abnormal Neck Neck: Yes no lymphadenopathy Resp Effort & Inspection: normal respiratory effort Auscultation: clear to auscultation bilaterally Cardio Other: S1 S2 Back/Spine/Pelvis Back/spine/pelvis image: 2 1. Site of pain with percussion, patient is able to lift both shoulders without any discomfort Psych Mental Status: mental status grossly normal Assessment & Plan Assessment & Plan (1) Upper back pain: Code(s): M54.9 - Dorsalgia, unspecified (2) Chest cold: Code(s): J22 - Unspecified acute lower respiratory infection Plan Patient is 63 year gentlemen had flu-like symptoms 2 weeks ago And still have cough which is mostly dry but sometimes also spit up phlegm quintana to slightly colored Complaining of upper back pain since he has started coughing There is no fever no chills no nausea no vomiting pain On examination is chest is clear Pain is located locally upper thoracic spine Patient have a script for nabumetone 750 mg that he is not taking I would recommend to start taking medication in the morning with breakfast Drink lots of water add some vitamin-C His chest cold is already getting better, might take a few more days. Since his lungs are clear there is no need for x-ray Coding Level of Care Code Est Pt Level 3 (16888) Diagnoses Upper back pain M54.9 Chest cold J22
== END 2023-12-18 12:23 | disposition home or self-care (01) ==
PROVIDERS: PCP Internal Medicine; Visit Provider Internal Medicine
DX: M54.9 Dorsalgia, unspecified (principal); J22 Unspecified acute lower respiratory infection
CPT/HCPCS: 99213

== ENCOUNTER 2024-01-18 11:02 | Emergency (ER) | payer OTHER, SELFPAY ==
--- NOTE | ~2024-01-18 | CT_ITS ---
EXAMINATION: CT ABDOMEN AND PELVIS WITH CONTRAST CLINICAL INFORMATION: Left lower quadrant tenderness. COMPARISON: CT abdomen and pelvis 03/03/2021. TECHNIQUE: Multidetector volumetric images were obtained from the superior aspect of the liver through the pubic symphysis following administration 85 mL of Omnipaque 350 intravenous contrast. Sagittal and coronal reformatted images were obtained on the technologist's workstation. Oral contrast: No This CT examination was performed using dose optimization techniques as appropriate, variously including the following: *Automated exposure control *Adjustment of mA and/or kV according to patient size (this includes techniques or standardized protocols for targeted exams where dose is matched to indication/reason for exam; i.e. extremities or head) *Use of iterative reconstruction technique DLP: 515 mGy-cm FINDINGS: LUNG BASES: Mosaic ground-glass changes are present at the lung bases increased from prior. No effusions or consolidations. I believe there may be a sequestration in the right lower lobe with systemic supply off of a branch of the SMA. LIVER, GALLBLADDER, AND BILIARY TREE: The liver is normal in size, shape, and attenuation. No focal hepatic lesion or biliary ductal dilatation is present. The gallbladder is unremarkable with no evidence of radiopaque gallstones, gallbladder wall thickening, or obvious pericholecystic inflammatory changes. PANCREAS: Unremarkable. SPLEEN: Unremarkable. ADRENAL GLANDS: Unremarkable. KIDNEYS AND URETERS: The kidneys are normal in size, shape, and attenuation. No hydronephrosis, hydroureter, or calculi seen. No perinephric stranding. BLADDER: Unremarkable. GASTROINTESTINAL TRACT: The small and large bowel are unremarkable. The appendix is unremarkable. ABDOMINAL WALL: A periumbilical hernia seen containing only fat. LYMPH NODES: No retroperitoneal lymphadenopathy. VASCULAR: Minimal calcific atherosclerotic changes are present in the aorta and iliac vessels. There is no evidence of an abdominal aortic aneurysm. PELVIC VISCERA: There is mefgvugw-cu-lrlqqx BPH. Seminal vesicles appear normal. OSSEOUS STRUCTURES: Marked degenerative changes are present from L2 through L5. CT/CT abdomen pelvis w IV con IMPRESSION: 1. A cause for the patient's left lower quadrant pain has not been found. 2. Incidental note made of mosaic groundglass changes at the lung bases, possible right lower lobe sequestration, BPH and degenerative changes in the spine. Fleischner guidelines were followed.
[2024-01-18 11:30] VITALS: BP 141/80; PULSE 97; RESP 16; TEMP 36.7; O2SAT 97; BMI 31.6
--- NOTE | 2024-01-18 11:36 | ED_ITS ---
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 He reports that yesterday the pain became more severe. Reports intermittent constipation but states his last normal bowel movement was this morning. Reports increased flatus. Denies any nausea, vomiting, diarrhea. Denies fevers. Denies any dysuria, hematuria, frequency or other urinary symptoms. Denies any hematochezia or melena. States pain increases after eating. He has tried several ajdx-oeg-lsvwbaz medications without relief of symptoms. Denies prior abdominal surgeries. Pertinent past history: constipation Onset (ago): week(s) Pain Consistency: colicky Location: LLQ Severity: moderate Quality: aching Radiation: none Migration to: no migration Exacerbating factors: eating Relieving factors: nothing Associated symptoms: other (gas) Treatments prior to arrival: other Related Data Home Medications Medication Instructions Recorded Confirmed tadalafil 10 mg tablet 10 mg PO DAILY 01/10/23 12/18/23 polyvinyl alcohol 1.4 % eye drops 1 drp ophthalmic (eye) BID 06/14/23 12/18/23 Previous Rx's Medication Instructions Recorded hydrochlorothiazide 25 mg tablet 25 mg PO DAILY 90 days #90 tabs 11/14/22 loratadine 10 mg tablet 10 mg PO DAILY #30 tabs 04/30/23 docusate sodium 100 mg capsule 100 mg PO DAILY 30 days #30 caps 08/24/23 (Colace) qverff-[id number]-[id number] 1 cap PO QID 30 days #120 caps 08/24/23 24,000-76,000-120,000 unit capsule,delayed rel (Creon) omeprazole 20 mg capsule,delayed 20 mg PO DAILY 30 days #30 caps 08/24/23 release plecanatide 3 mg tablet (Trulance) 3 mg PO DAILY 30 days #30 tabs 08/24/23 simethicone 180 mg capsule 180 mg PO QID 30 days #120 caps 08/24/23 nabumetone 750 mg tablet 750 mg PO BID 90 days #180 tabs 08/27/23 blood pressure monitor #1 ea 09/01/23 levothyroxine 112 mcg tablet 112 mcg PO DAILY 90 days #90 tabs 09/14/23 recliner #1 ea 09/26/23 tizanidine 4 mg tablet 4 mg PO BID PRN muscle spasticity 09/26/23 5 days #10 tabs potassium chloride 10 mEq 10 meq PO DAILY 10 days #10 caps 11/17/23 capsule,extended release pravastatin 20 mg tablet 20 mg PO DAILY 90 days #90 tabs 11/17/23 Allergies Allergy/AdvReac Type Severity Reaction Status Date / Time amlodipine Allergy Intermediate leg edema Verified 12/18/23 11:48 carisoprodol [From SOMA] Allergy Intermediate twitching Verified 12/18/23 11:48 jennyfer inhibitors AdvReac Intermediate cough, Verified 12/18/23 11:48 anxiety Review of Systems Review of Systems As per HPI. Yes all other systems are reviewed and are negative Constitutional: Reports as per HPI PMFSH Past Medical History Medical History Pure hypercholesterolemia EMILY (generalized anxiety disorder) Mild recurrent major depression HSV (herpes simplex virus) anogenital infection Tubular adenoma of colon Depression with anxiety Neck pain Umbilical hernia Scoliosis Erectile dysfunction Onychomycosis Essential hypertension Hypothyroidism Obesity GERD (gastroesophageal reflux disease) Surgical History Status post excision of lipoma Hx of colonoscopy (~2009) Family History Family History Father HTN (hypertension) Mother HTN (hypertension) Hypercholesteremia Family/Other HTN (hypertension) Thyroid disease Diabetes FH: mental illness Daughter Thyroid disease Son No problems noted. Brother Substance abuse Social History Social History Household Members: None Housing: Apartment Alcohol intake: current Alcohol intake frequency: holidays/special occasions only Alcohol type: beer Patient Tobacco Use Status: Never used Tobacco Smoked in Last 30 Days: No e-Cigarette/Vaping Use: Never Used Second Hand Smoke Exposure: No Use of substances other than those prescribed or required for medical reasons: No Advance Directives: No Advance Directives Information Provided: Yes service: No Current occupational status: disabled Cognitive needs: No Hearing needs: No Vision needs: Yes (Glasses) Physical Exam ED Vital Signs: Vital Signs - 24 hr 01/18/24 11:30 Temperature 98.0 F Pulse Rate 97 Respiratory Rate 16 Blood Pressure 141/80 H Pulse Oximetry 97 Oxygen Delivery Method Room Air BMI result Body Mass Index 31.6 Vital signs have been reviewed and appear to be correct. Blood pressure normal. Heart rate normal. Respiratory rate normal. Temperature normal. Oxygen saturation normal. Const General: cooperative, healthy appearing and no acute distress Orientation/consciousness: oriented to person, oriented to place, oriented to time and patient oriented x3 Limitations: no limitations HENMT Head: Yes normocephalic and Yes atraumatic Ears: external ears normal General nose exam: Normal external nose present Face and sinus: Yes face symmetric Mouth: oropharynx normal and moist mucous membranes Throat: Yes uvula midline Eyes Pupils: Equal, round and reactive pupils present Neck Neck: Yes normal visual inspection and Yes supple Resp Effort & Inspection: normal respiratory effort and able to speak in complete sentences Auscultation: clear to auscultation bilaterally Cardio Rate: regular rate Rhythm: regular rhythm Heart sounds: S1 normal heart sound present and S2 normal heart sound present GI Inspection: Yes normal to inspection Palpation (GI): Soft to palpation and Tenderness to palpation present (GI) in the LLQ Auscultation: normoactive bowel sounds General: Yes no CVA tenderness Back/Spine/Pelvis Back: no CVA tenderness Skin General skin exam: elasticity normal and turgor normal Neuro General: oriented to person, oriented to place, oriented to time, patient oriented x3, moves all extremities, no focal motor deficits and CN's II-XI intact bilaterally Cranial nerves: Yes Equal, round and reactive pupils present Cognition (Neuro): normal cognition Extrem General: Yes full ROM, Yes no pedal edema and Yes no calf tenderness Psych Mental Status: mental status grossly normal Affect: normal affect Thought process: Normal thought process present Course Course Course Narrative: This is an RME: Additional HPI, ROS, PE not included below will be deferred to primary provider. Patient is a 64 presents emergency department for evaluation quadrant abdominal pain. He reports an episode of similar pain intermittently over the past 3 weeks. Yesterday pain became more severe, he felt very bloated. He attempted to take simethicone and docusate without any improvement in his symptoms. He reports normal bowel movements. Last bowel movement yesterday. Denies hematochezia or melena. Denies genitourinary symptoms. He does state that he is being followed by a GI doctor as well. He reports having an umbilical hernia that has developed over the past month after having an influenza infection with excessive coughing. Reevaluation(s) Reevaluation #1: Patient received in sign-out at change of shift pending CT imaging. Patient's CT scan does not show any concerning findings. Per Radiology report there is no acute findings to explain the patient's left lower quadrant abdominal pain. By my read the patient does have huxx-ry-unywvzhq stool burden/constipation which was discussed with the patient. He is stable for discharge Time: 18:06 Medical Decision Making Medical Decision Making [facility] Narrative: Patient is a 63-year-old [place]ic-speaking male with history of GERD, chronic constipation, HTN, hypothyroidism presenting to the emergency department with left lower quadrant abdominal pain for the past several weeks. On exam patient is awake, A+Ox3, VS WNL, afebrile, normal neurological exam without focal deficits, physical exam findings as above. Given reported symptoms and physical exam findings, initial differential includes diverticulitis, constipation, UTI, renal/ureteral calculi. Labs notable for mild hypokalemia, otherwise unremarkable. Patient signed out to SAMUEL Cramer pending UA and CT results. Differential Diagnosis Differential Diagnoses: The differential diagnosis associated with the presentation includes As per MDM. Admission/Observation Consideration of admission/observation: Escalation of care including admission/observation considered Patient would have been admitted to the hospital had their work up had any findings where hospital admission was appropriate and their clinical presentation warranted hospital admission. Lab Data [facility] Lab Attestation statement: I reviewed the patient's lab results. As per MDM. 01/18/24 12:11 01/18/24 12:11 Labs: Lab Results 01/18/24 01/18/24 Range/Units 12:11 16:04 WBC 7.8 (4.8-10.8) X10*3/uL RBC 4.87 (4.60-5.80) X10*6/uL Hgb 15.7 (14.0-18.0) g/dl Hct 43.6 (42.0-52.0) % MCV 89.5 (80.0-98.0) fL MCH 32.2 (27.0-33.0) pg MCHC 36.0 (31.0-36.0) g/dl RDW 11.8 (11.0-16.0) % Plt Count 194 (160-400) X10*3/uL MPV 10.2 (9.4-12.4) fL Immature Gran % (Auto) 0.4 (0.0-0.4) % Neut % (Auto) 51.6 (45-73) % Lymph % (Auto) 34.9 (20-40) % [place] % (Auto) 8.9 (2-11) % Eos % (Auto) 3.3 (0-4) % Baso % (Auto) 0.9 (0-2) % Lymph # (Auto) 2.7 (1.2-4.9) X10*3/uL [place] # (Auto) 0.7 (0.1-1.2) X10*3/uL Eos # (Auto) 0.3 (0.0-0.4) X10*3/uL Baso # (Auto) 0.1 (0.0-0.2) X10*3/uL Abs Immat Gran (auto) 0.03 (0.00-0.03) X10*3/uL Absolute Neuts (auto) 4.0 (2.0-8.3) x10*3/uL Absolute Nucleated RBC 0.000 (0.0-0.012) X10*3/uL Nucleated RBC % (auto) 0.0 (0.0-0.2) /100WBC Sodium 136 (135-145) mmol/L Potassium 3.1 L (3.3-5.1) mmol/L Chloride 99 (96-108) mmol/L Carbon Dioxide 29 (22-29) mmol/L Anion Gap 11 L (12-20) BUN 19 H (9-16) mg/dL Creatinine 1.25 (0.5-1.4) mg/dL Estim Creat Clear Calc 62.3 Estimated GFR 58 Random Glucose 106 (60-115) mg/dL Calcium 9.7 (8.4-10.2) mg/dL Total Bilirubin 0.5 (0.0-1.0) mg/dL AST 26 (5-37) U/L ALT 35 (0-40) U/L Alkaline Phosphatase 88 (39-117) U/L Total Protein 7.4 (6.5-8.0) g/dL Albumin 4.3 (3.5-5.0) g/dL Urine Color Yellow Urine Appearance Clear Urine pH 7.5 (5.0-9.0) Ur Specific [place] 1.010 (1.005-1.025) Urine Protein Negative (Neg-Trace) mg/dL Urine Glucose (UA) Negative (Negative) mg/dL Urine Ketones Negative (Negative) mg/dL Urine Blood Negative (Negative) Urine Nitrite Negative (Negative) Ur Leukocyte Esterase Negative (Negative) External Record Review External record reviewed: Inpatient record, Office record and Outpatient record Medications Administered Discontinued Medications Generic Name Dose Route Start Last Admin Trade Name Freq PRN Reason Stop Dose Admin Iohexol 85 ml 01/18/24 16:21 01/18/24 16:22 Iohexol 350 Mg/Ml 100 Ml Infus..Btl IV 01/18/24 16:22 85 ml ONCE ONE Administration Potassium Chloride 20 meq 01/18/24 16:16 01/18/24 16:33 Potassium Chloride Packet 20 Meq Packet PO 01/18/24 16:17 20 meq ONCE ONE Administration Discharge Plan Discharge Clinical Impression: Abdominal pain Patient Disposition: Home, Self-Care Instructions: Abdominal Pain (ED) Additional Instructions: Your CT scan did not show any concerning abnormalities You do have some mild constipation I recommend that you use khgu-hvs-kmodfjf MiraLax to help with your bowel regimen Increase fluid intake and follow-up with your primary doctor Return for new or worsening symptoms Prescriptions: No Action hydrochlorothiazide 25 mg tablet 25 mg PO DAILY 90 Days Qty: 90 3RF (DME) blood pressure monitor Kit See Rx Instructions .Route Qty: 1 0RF Rx Instructions: As directed levothyroxine 112 mcg tablet 112 mcg PO DAILY 90 Days Qty: 90 1RF tizanidine 4 mg tablet 4 mg PO BID PRN (Reason: muscle spasticity) 5 Days Qty: 10 0RF (DME) recliner See Rx Instructions .Route .MEDSUPPLY Qty: 1 0RF Rx Instructions: As directed pravastatin 20 mg tablet 20 mg PO DAILY 90 Days Qty: 90 3RF potassium chloride 10 mEq capsule, extended release 10 meq PO DAILY 10 Days Qty: 10 0RF loratadine 10 mg tablet 10 mg PO DAILY Qty: 30 0RF nabumetone 750 mg tablet 750 mg PO BID 90 Days Qty: 180 0RF tadalafil 10 mg tablet 10 mg PO DAILY polyvinyl alcohol 1.4 % drops 1 drp ophthalmic (eye) BID Trulance 3 mg tablet 3 mg PO DAILY 30 Days Qty: 30 6RF simethicone 180 mg capsule 180 mg PO QID 30 Days Qty: 120 6RF Rx Instructions: after meals omeprazole 20 mg capsule,delayed release(DR/EC) 20 mg PO DAILY 30 Days Qty: 30 6RF Creon 24,000-76,000 -120,000 unit capsule,delayed release(DR/EC) 1 cap PO QID 30 Days Qty: 120 6RF Rx Instructions: administer with meals and/or snacks docusate sodium [Colace] 100 mg capsule 100 mg PO DAILY 30 Days Qty: 30 6RF
[2024-01-18 12:17] LABS: MANUAL DIFF FLAG NO
[2024-01-18 12:22] LABS: Basophils Absolute Auto 0.1 X10*3/uL (0.0-0.2); Basophils Percent Auto 0.9 % (0-2); Eosinophils Absolute Auto 0.3 X10*3/uL (0.0-0.4); Eosinophils Percent Auto 3.3 % (0-4); Hematocrit 43.6 % (42.0-52.0); Hemoglobin 15.7 g/dl (14.0-18.0); Imm Gran Abs Auto 0.03 X10*3/uL (0.00-0.03); Imm Gran Pct Auto 0.4 % (0.0-0.4); Lymphocytes Absolute Auto 2.7 X10*3/uL (1.2-4.9); Lymphocytes Percent Auto 34.9 % (20-40); Mean Corpuscular Hemoglobin 32.2 pg (27.0-33.0); Mean Corpuscular Volume 89.5 fL (80.0-98.0); Mean Platelet Volume 10.2 fL (9.4-12.4); Monocytes Absolute Auto 0.7 X10*3/uL (0.1-1.2); Monocytes Percent Auto 8.9 % (2-11); Neutrophils Percent Auto 51.6 % (45-73); Platelet Count 194 X10*3/uL (160-400); Red Blood Count 4.87 X10*6/uL (4.60-5.80); Red Cell Distribution Width 11.8 % (11.0-16.0); White Blood Count 7.8 X10*3/uL (4.8-10.8)
[2024-01-18 12:34] LABS: Alanine Aminotransferase 35 U/L (0-40); Albumin Level 4.3 g/dL (3.5-5.0); Alkaline Phosphatase 88 U/L (39-117); Anion Gap 11 (12-20); Aspartate Amino Transferase 26 U/L (5-37); Bilirubin Total 0.5 mg/dL (0.0-1.0); Blood Urea Nitrogen 19 mg/dL (9-16); Calcium 9.7 mg/dL (8.4-10.2); Carbon Dioxide 29 mmol/L (22-29); Chloride 99 mmol/L (96-108); Creatinine Clr Calc Pharmacy 62.3; Estimated Glomerular Filt Rate 58; Glucose Random 106 mg/dL (60-115); Potassium 3.1 mmol/L (3.3-5.1); Sodium 136 mmol/L (135-145); Total Protein 7.4 g/dL (6.5-8.0)
[2024-01-18 16:16] LABS: Appearance Urine Clear; Color Urine Yellow; Glucose Urine UA Negative (Negative); Leukocyte Esterase Urine Negative (Negative); Nitrite Urine Negative (Negative); PH 7.5 (5.0-9.0); Urine Blood Negative (Negative); Urine Ketones Negative (Negative); Urine Protein Negative (Neg-Trace)
[2024-01-18] MEDS: iohexoL 350 MG/ML 100 ML INFUS..BTL 85 ML IV (16:22)
[2024-01-18] MEDS: Potassium Chloride Packet 20 MEQ PACKET PO (16:33)
[2024-01-18 18:16] VITALS: BP 141/80; PULSE 97; RESP 8; TEMP 36.6; O2SAT 97
== END 2024-01-18 18:17 | disposition home or self-care (01) ==
PROVIDERS: Nurse Practitioner Family; Emergency Provider Student in an Organized Health Care Education/Training Program; PCP Internal Medicine
DX: R10.32 Left lower quadrant pain (principal); K59.00 Constipation, unspecified; Z79.899 Other long term (current) drug therapy
CPT/HCPCS: 36415; 74177; 80053; 81003; 85025; 99284; Q9967

== ENCOUNTER 2024-01-30 06:55 | Outpatient (REF) | payer OTHER, SELFPAY ==
[2024-01-30 08:21] LABS: Alanine Aminotransferase 26 U/L (0-40); Albumin Level 4.2 g/dL (3.5-5.0); Alkaline Phosphatase 82 U/L (39-117); Anion Gap 10 (12-20); Aspartate Amino Transferase 21 U/L (5-37); Bilirubin Total 0.7 mg/dL (0.0-1.0); Blood Urea Nitrogen 13 mg/dL (9-16); Calcium 9.3 mg/dL (8.4-10.2); Carbon Dioxide 30 mmol/L (22-29); Chloride 102 mmol/L (96-108); Cholesterol 210 mg/dL (<200); Estimated Glomerular Filt Rate > 60; Glucose Fasting 93 mg/dL (60-99); HDL Cholesterol 43 mg/dL (>40); LDL Cholesterol Calculated 139 mg/dL (<100); Potassium 3.8 mmol/L (3.3-5.1); Sodium 138 mmol/L (135-145); Triglycerides 143 mg/dL (<150)
[2024-01-30 08:27] LABS: PSA,Total (Free>4and<10) 3.15 ng/mL (0.00-4.00)
[2024-01-30 08:40] LABS: Vitamin D 25-OH Total 35.5 ng/mL (>30)
[2024-02-03 16:13] LABS: Testosterone, Free 70.4 pg/mL (35.0-155.0); Testosterone, Total 347 ng/dL (250-1100)
== END 2024-01-30 06:56 | disposition home or self-care (01) ==
LOC: HO.LAB 06:55
PROVIDERS: PCP Internal Medicine; Visit Provider Internal Medicine
DX: K21.9 Gastro-esophageal reflux disease without esophagitis (principal); E55.9 Vitamin D deficiency, unspecified; N52.9 Male erectile dysfunction, unspecified; E78.5 Hyperlipidemia, unspecified; Z12.5 Encounter for screening for malignant neoplasm of prostate; E03.8 Other specified hypothyroidism; E06.3 Autoimmune thyroiditis
CPT/HCPCS: 36415; 80053; 80061; 82306; 84153; 84402; 84403; 84443

== ENCOUNTER 2024-02-07 12:33 | Outpatient (AMB) | payer OTHER, SELFPAY ==
--- NOTE | 2024-02-07 12:37 | MHC.PC.OV ---
Vital Signs 02/07/24 12:41 Height 5 ft 6 in Weight 195 lb BMI 31.5 BP 120/74 Blood Pressure Location Lt brachial Position Sitting Intake Visit Reasons: Upper back pain Intake Note: Patient here c/o upper back pain [employer] Required: No Accompanied by: Self / Same As Patient Allergies amlodipine Allergy (Intermediate, Verified 02/07/24 12:58) leg edema carisoprodol [From [facility]] Allergy (Intermediate, Verified 02/07/24 12:58) twitching jennyfer inhibitors Adverse Reaction (Intermediate, Verified 02/07/24 12:58) cough, anxiety Medication List - Last Reconciled 02/07/24 by Cindy Llanes MD blood pressure monitor As directed docusate sodium (Colace) 100 mg PO DAILY 30 days hydrochlorothiazide 25 mg PO DAILY 90 days levothyroxine 112 mcg PO DAILY 90 days [id number] 24,000-76,000 -120,000 unit (Creon) 1 cap PO QID 30 days loratadine 10 mg PO DAILY nabumetone 750 mg PO BID 90 days omeprazole 20 mg PO DAILY 30 days plecanatide (Trulance) 3 mg PO DAILY 30 days polyvinyl alcohol 1.4% 1 drp ophthalmic (eye) BID potassium chloride ER 10 mEq PO DAILY 10 days pravastatin 20 mg PO DAILY 90 days [recliner As directed] simethicone 180 mg PO QID 30 days tadalafil 10 mg PO DAILY tizanidine 4 mg PO BID PRN 5 days Tobacco use date assessed: 02/07/24 Fall risk assessment: No Falls in past year Last assessed Fall Risk: 02/07/24 Dental Screening Dental Screen Date: 02/07/24 Did you have a dental visit in the last 12 months?: No Did you have a dental problem in the last 6 months where you did not have access to dental care?: No Was dental information given to patient?: Patient has dentist HPI HPI Comments History of Present Illness Details This is a 63-year-old male with hypertension, hypothyroidism, pure hypercholesterolemia, mild recurrent major depression, GERD and osteopenia that comes for follow-up on his conditions. Blood pressure stable. Last TSH was normal. Cholesterol well control. Depression is in remission with no need for medications. GERD stable with PPIs and follow by Gastroenterology. Went to ER last month due to abdominal pain and bloating and had CT scan of abdomen and pelvis showing no acute abnormality that could explain the pain. Did some changes in his diet and feels markedly improved. Had a bone density showing osteopenia and I will send calcium with vitamin-D. Denies any chest pain or shortness of breath. [facility] Medical History (Updated 02/07/24 @ 13:08 by Cindy Llanes MD) Thoracic compression fracture Pure hypercholesterolemia EMILY (generalized anxiety disorder) Mild recurrent major depression HSV (herpes simplex virus) anogenital infection Tubular adenoma of colon Depression with anxiety Neck pain Umbilical hernia Scoliosis Erectile dysfunction Onychomycosis Essential hypertension Hypothyroidism Obesity GERD (gastroesophageal reflux disease) Surgical History Status post excision of lipoma Hx of colonoscopy (~2009) Family History Father HTN (hypertension) Mother HTN (hypertension) Hypercholesteremia Family/Other HTN (hypertension) Thyroid disease Diabetes FH: mental illness Daughter Thyroid disease Son No problems noted. Brother Substance abuse Social History Household Members: None Housing: Apartment Alcohol intake: current Alcohol intake frequency: holidays/special occasions only Alcohol type: beer Patient Tobacco Use Status: Never used Tobacco e-Cigarette/Vaping Use: Never Used Second Hand Smoke Exposure: No service: No Current occupational status: disabled Cognitive needs: No Hearing needs: No Vision needs: Yes (Glasses) Questionnaire PHQ-9 Over the last 2 weeks, how often have you been bothered by any of the following problems? 1. Little interest or pleasure in doing things: several days 2. Feeling down, depressed, or hopeless: several days 3. Trouble falling or staying asleep, or sleeping too much: several days 4. Feeling tired or having little energy: several days 5. Poor appetite or overeating: not at all 6. Feeling bad about yourself - or that you are a failure or have let yourself or your family down: several days 7. Trouble concentrating on things, such as reading the newspaper or watching television: not at all 8. Moving or speaking so slowly that other people could have noticed. Or the opposite - being so fidgety or restless that you have been moving around a lot more than usual: not at all 9. Thoughts that you would be better off or of hurting yourself in some way: not at all Total score: 5 Depression Screening Interpretation: Positive Depression Screening Follow-up: Existing condition Depression Screening Done: Yes 17568 - PHQ-9 Billing: Yes Source: Developed by Drs. Billy Hagen, Melida Vasquez, Compa Mendez and colleagues, with an educational eze from [employer]. Thrive Questionnaire Date Thrive assessed: 02/07/24 I am a: Patient What is your living situation today?: I have a steady place to live Within the past 12 months, did the food you bought not last and you didn't have the money to get more?: Never true Within the past 12 months, did you worry whether your food would run out before you got money to buy more?: Never true Do you have trouble paying for medicines?: No Do you have trouble getting transportation to medical appointments?: No Do you have trouble paying your heating and electricity bill?: No Do you have trouble taking care of your child, family member or friend?: No Do you have trouble with day-to-day activities such as bathing, preparing meals, shopping, managing finances, etc.?: No Are you currently unemployed and looking for a job?: No Are you interested in more education?: No Please select the resources that you would like help with: None Currently or been in a relationship where the following occur: no concerns reported THRIVE Score: 0 AUDIT C Alcohol Use Questionnaire (AUDIT-C) 1. How often do you have a drink containing alcohol?: Monthly or less 2. How many drinks containing alcohol do you have on a typical day when you are drinking?: 1 or 2 3. How often do you have six or more drinks on one occasion?: Never Total Score: 1 EMILY-7 AMB Questionnaire EMILY-7 Date EMILY - 7 assessed: 02/07/24 Feeling nervous, anxious, or on edge: 1 = Several days Not being able to stop or control worryin = Not at all Worrying too much about different things: 1 = Several days Trouble relaxin = Several days Being so restless that it is hard to sit still: 0 = Not at all Becoming easily annoyed or irritable: 1 = Several days Feeling afraid as if something awful might happen: 1 = Several days Total EMILY-7 score (0-4 normal; 5-9 mild; 10-14 moderate; 15-21 severe): 5 Source: Developed by Drs. Billy Hagen, Melida Vasquez, Compa Mendez and colleagues, with an educational eze from [employer]. EMILY-7 Assessment Billing EMILY-7 Assessment Tool: EMILY-7 Assessment 61487 Review of Systems Const All systems reviewed & are unremarkable except as noted in HPI and below Eyes Reports no additional complaints, Denies change in vision and Denies other visual disturbances Card Denies chest pain at rest, Denies chest pain with activity, Denies edema, Denies irregular heart rhythm, Denies claudication, Denies dyspnea, Denies dyspnea on exertion, Denies orthopnea, Denies paroxysmal nocturnal dyspnea and Denies slow heart rate Resp Denies cough, Denies dyspnea and Denies dyspnea on exertion GI Denies abdominal pain, Denies change in bowel habits, Denies excessive flatus, Denies nausea and Denies vomiting Physical exam (Primary Care) Vital Signs: Last Vital Signs BP 120/74 02/07/24 12:41 BMI result Body Mass Index 31.5 Tobacco/Smoking Status: Tobacco use Status Tobacco use date assessed 02/07/24 02/07/24 12:48 Patient Tobacco Use Status Never used Tobacco 02/07/24 12:48 e-Cigarette/Vaping Use Never Used 02/07/24 12:48 PHQ-9: PHQ-9 Score PHQ-9: Total score 5 02/07/24 12:48 Depression Screening Interpretation: Positive Depression Screening Follow-up: Existing condition Thrive Assessment: Date of Thrive Assessment Date Thrive assessed 02/07/24 02/07/24 12:48 Currently or been in a relationship where the following occur: no concerns reported Resp Effort & Inspection: normal respiratory effort Auscultation: clear to auscultation bilaterally Cardio Jugular venous distension: no JVD Rate: regular rate Rhythm: regular rhythm Heart sounds: S1 normal heart sound present and S2 normal heart sound present GI Inspection: Yes normal to inspection Palpation (GI): Soft to palpation and nontender Auscultation: normal bowel sounds Extrem General: Yes full ROM Assessment and Plan Assessment & Plan (1) Osteopenia: Code(s): M85.80 - Other specified disorders of bone density and structure, unspecified site Plan: Start calcium with vitamin-D. Repeat bone density in 2 years. (2) Pure hypercholesterolemia: Code(s): E78.00 - Pure hypercholesterolemia, unspecified Plan: Continue statins. (3) Mild recurrent major depression: Code(s): F33.0 - Major depressive disorder, recurrent, mild Plan: In remission. (4) GERD (gastroesophageal reflux disease): Code(s): K21.9 - Gastro-esophageal reflux disease without esophagitis Qualifiers: Esophagitis presence: esophagitis presence not specified Qualified Code(s): K21.9 - Gastro-esophageal reflux disease without esophagitis Plan: Continue PPIs. (5) Essential hypertension: Code(s): I10 - Essential (primary) hypertension Plan: Continue hydrochlorothiazide. Blood pressure goal is equal or less than 130/80. (6) Hypothyroidism: Code(s): E03.9 - Hypothyroidism, unspecified Qualifiers: Hypothyroidism type: due to Mychal's thyroiditis Qualified Code(s): E03.8 - Other specified hypothyroidism; E06.3 - Autoimmune thyroiditis Plan: Continue levothyroxine. Monitor TSH. 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
[2024-02-07 12:41] VITALS: BP 120/74; BMI 31.5
== END 2024-02-07 13:10 | disposition home or self-care (01) ==
PROVIDERS: PCP Internal Medicine; Visit Provider Internal Medicine
DX: M85.80 Other specified disorders of bone density and structure, unspecified site (principal); E78.00 Pure hypercholesterolemia, unspecified; F33.0 Major depressive disorder, recurrent, mild; K21.9 Gastro-esophageal reflux disease without esophagitis; I10 Essential (primary) hypertension; E03.8 Other specified hypothyroidism; E06.3 Autoimmune thyroiditis
CPT/HCPCS: 99214

== ENCOUNTER 2024-02-22 08:34 | Outpatient (AMB) | payer OTHER, SELFPAY ==
[2024-02-22 08:37] VITALS: BP 135/83; PULSE 84; BMI 31.4
--- NOTE | 2024-02-22 08:37 | MHC.OFFVIS ---
Vital Signs 02/22/24 08:37 Height 5 ft 6 in Weight 194 lb 7.163 oz BMI 31.4 BP 135/83 Blood Pressure Location Lt brachial Position Sitting Pulse 84 Intake Visit Reasons: 6 month follow Intake Note: Patient returns to in office visit in 6 months follow up of [facility]. CC: Wilfred reports that he was seen in the ER on 01/18/24 with left lower quadrant abdominal pain for several weeks before presentation. Patient c/o constipation and GERD. [employer] Required: Yes Accompanied by: Self / Same As Patient Allergies amlodipine Allergy (Intermediate, Verified 02/22/24 08:46) leg edema carisoprodol [From SOMA] Allergy (Intermediate, Verified 02/22/24 08:46) twitching jennyfer inhibitors Adverse Reaction (Intermediate, Verified 02/22/24 08:46) cough, anxiety HPI HPI 6 month follow: Details: Assessment & Plan (1) Tubulovillous adenoma: Comment: 07/2023=4 TA's repeat in 3 years; 03/2021=TVA 8 mm sessile and a TA as well Code(s): D36.9 - Benign neoplasm, unspecified site Plan: BULGARIAN #[id number] The procedure will need to be repeated in 3 years r/t 4 TA's. The procedure was well tolerated. The results were explained and the patient is agreeable to the follow-up interval as stated. The bowel pattern has returned to normal. Education was provided to tell any 1st degree relatives about their findings to be sure that they are screened by age 45. Educated that they will be put on a recall list when it is time for their repeat scope but should they move out of state or away from the hospital they will need to remember along with their primary to repeat the procedure in a timely fashion to avoid any adverse complications. He continues to do well on his Trulance, creon, docusate, simethicone and omeprazole. Return office visit in 6 months (2) Chronic idiopathic constipation: Code(s): K59.04 - Chronic idiopathic constipation (3) GERD (gastroesophageal reflux disease): Code(s): K21.9 - Gastro-esophageal reflux disease without esophagitis Qualifiers: Esophagitis presence: esophagitis presence not specified Qualified Code(s): K21.9 - Gastro-esophageal reflux disease without esophagitis Medications: Refilled docusate sodium (Colace) 100 mg PO DAILY 30 days 30 caps 6RF K59.01 - Slow transit constipation plecanatide (Trulance) 3 mg PO DAILY 30 days 30 tabs 6RF K59.04 - Chronic idiopathic constipation simethicone after meals 180 mg PO QID 30 days 120 caps 6RF R14.0 - Abdominal distension (gaseous) omeprazole 20 mg PO DAILY 30 days 30 caps 6RF reloph-snoemzuq-horcbdg 24,000-76,000 -120,000 unit (Creon) administer with meals and/or snacks 1 cap PO QID 30 days 120 caps 6RF K58.9 - Irritable bowel syndrome without diarrhea Discontinued peg 3350-electrolytes 236-22.74-6.74 -5.86 gram (Golytely) until fecal effluent is clear; do not exceed a total volume of 2,000 mL Discontinued Reason: Patient Completed Course 240 mL PO Q10M 1 day 4,000 mL 0RF Z12.11 - Encounter for screening for malignant neoplasm of colon REVIEW OF ER VISIT 01/18/2024 Course Course Narrative: This is an RME: Additional HPI, ROS, PE not included below will be deferred to primary provider. Patient is a 64 presents emergency department for evaluation quadrant abdominal pain. He reports an episode of similar pain intermittently over the past 3 weeks. Yesterday pain became more severe, he felt very bloated. He attempted to take simethicone and docusate without any improvement in his symptoms. He reports normal bowel movements. Last bowel movement yesterday. Denies hematochezia or melena. Denies genitourinary symptoms. He does state that he is being followed by a GI doctor as well. He reports having an umbilical hernia that has developed over the past month after having an influenza infection with excessive coughing. Reevaluation(s) Reevaluation #1: Patient received in sign-out at change of shift pending CT imaging. Patient's CT scan does not show any concerning findings. Per Radiology report there is no acute findings to explain the patient's left lower quadrant abdominal pain. By my read the patient does have noax-zk-fsexsnfr stool burden/constipation which was discussed with the patient. He is stable for discharge Time: 18:06 CT ABDOMEN AND PELVIS 01/18/24 FINDINGS: LUNG BASES: Mosaic ground-glass changes are present at the lung bases increased from prior. No effusions or consolidations. I believe there may be a sequestration in the right lower lobe with systemic supply off of a branch of the SMA. LIVER, GALLBLADDER, AND BILIARY TREE: The liver is normal in size, shape, and attenuation. No focal hepatic lesion or biliary ductal dilatation is present. The gallbladder is unremarkable with no evidence of radiopaque gallstones, gallbladder wall thickening, or obvious pericholecystic inflammatory changes. PANCREAS: Unremarkable. SPLEEN: Unremarkable. ADRENAL GLANDS: Unremarkable. KIDNEYS AND URETERS: The kidneys are normal in size, shape, and attenuation. No hydronephrosis, hydroureter, or calculi seen. No perinephric stranding. BLADDER: Unremarkable. GASTROINTESTINAL TRACT: The small and large bowel are unremarkable. The appendix is unremarkable. ABDOMINAL WALL: A periumbilical hernia seen containing only fat. LYMPH NODES: No retroperitoneal lymphadenopathy. VASCULAR: Minimal calcific atherosclerotic changes are present in the aorta and iliac vessels. There is no evidence of an abdominal aortic aneurysm. PELVIC VISCERA: There is nuwpwvui-ek-skzdnk BPH. Seminal vesicles appear normal. OSSEOUS STRUCTURES: Marked degenerative changes are present from L2 through L5. CT/CT abdomen pelvis w IV con IMPRESSION: 1. A cause for the patient's left lower quadrant pain has not been found. 2. Incidental note made of mosaic groundglass changes at the lung bases, possible right lower lobe sequestration, BPH and degenerative changes in the spine. Laboratory Tests 01/18/24 01/30/24 12:11 07:18 WBC 7.8 Hgb 15.7 Hct 43.6 Plt Count 194 Estimated GFR > 60 Total Bilirubin 0.7 AST 21 ALT 26 Alkaline Phosphatase 82 TSH 1.50 TODAY'S VISIT BULGARIAN #[id number] He developed severe LLQ pain 01/17 and presented to the ER. There was no CT finding.. He still has the pain but it is mild. He continues on his Trulance but admits he at times forgets to take it. He can not tell if the pain is worse when he does not move his bowels, but admits he was quite bloated when this happened. He also takes colace. He is having a lot of gas and bloating. I want to change the creon to 2 caps bid instead of qid, as he may be missing doses. He is already on simethicone. He continues on his omeprazole qd. He was worried about taking his creon when he drinks occasional beers, I advise him that it is ok to take this with the beer. RoV 4 weeks. He has a doorknob complaint o9f burning with urination and says he wants a PSA. I will also order a UA. [facility] Medical History Thoracic compression fracture Pure hypercholesterolemia EMILY (generalized anxiety disorder) Mild recurrent major depression HSV (herpes simplex virus) anogenital infection Tubular adenoma of colon Depression with anxiety Neck pain Umbilical hernia Scoliosis Erectile dysfunction Onychomycosis Essential hypertension Hypothyroidism Obesity GERD (gastroesophageal reflux disease) Surgical History Status post excision of lipoma Hx of colonoscopy (~2009) Family History Father HTN (hypertension) Mother HTN (hypertension) Hypercholesteremia Family/Other HTN (hypertension) Thyroid disease Diabetes FH: mental illness Daughter Thyroid disease Son No problems noted. Brother Substance abuse Social History Household Members: None Housing: Apartment Alcohol intake: current Alcohol intake frequency: holidays/special occasions only Alcohol type: beer Patient Tobacco Use Status: Never used Tobacco e-Cigarette/Vaping Use: Never Used Second Hand Smoke Exposure: No service: No Current occupational status: disabled Cognitive needs: No Hearing needs: No Vision needs: Yes (Glasses) Review of Systems Const Denies fatigue, Denies fever(s), Denies night sweats, Denies poor appetite and Denies weight loss Eyes Details: glasses Reports requires corrective lenses ENT Reports Normal hearing present, Denies dental pain, Denies dysphagia, Denies hearing loss, Denies mouth pain, Denies odynophagia, Denies throat swelling, Denies tongue swelling and Reports other (Dentition adequate) Card Reports no additional complaints Resp Reports no additional complaints GI Details: Reports abdominal pain, Denies melena, Reports bloating, Denies hematochezia, Reports constipation, Denies GI cramping, Denies dysphagia, Denies excessive flatus, Denies early satiety, Reports heartburn, Denies diarrhea, Denies nausea, Denies odynophagia, Denies vomiting and Denies hematemesis Skin/Breast Denies pruritus, Denies lesions, Denies rash and Denies jaundice Neuro Reports Normal hearing present and Denies Abnormal speech present Endo Denies fatigue Aller/Immun Denies throat swelling and Denies tongue swelling Physical Exam Vital Signs: Last Vital Signs Pulse 84 02/22/24 08:37 BP 135/83 02/22/24 08:37 BMI result Body Mass Index 31.4 Const General: cooperative, no acute distress, well developed and well groomed Nutritional Appearance: well nourished and obese Orientation/consciousness: oriented to person, oriented to place and oriented to time Limitations: language barrier HEENT Head: Yes normocephalic and Yes atraumatic Eyes General: appearance normal, both eyes and all related structures Pupils: Equal, round and reactive pupils present Neck Neck: Yes normal visual inspection and Yes no lymphadenopathy Thyroid: Thyroid normal Resp Effort & Inspection: normal respiratory effort and able to speak in complete sentences Auscultation: clear to auscultation bilaterally Cardio Rate: regular rate Rhythm: regular rhythm Heart sounds: Normal, physiologic split S2 sound present Peripheral pulses: radial pulses present and posterior tibial pulses present GI Inspection: No distended, No Abdominal panniculus present and Yes obesity Palpation (GI): Soft to palpation, nontender, no guarding, not rigid and No hepatosplenomegaly present Percussion: Yes normal to percussion Auscultation: normal bowel sounds Rectal Exam - Male: Yes deferred Skin General skin exam: no rashes or lesions noted, turgor normal, skin not dry, no jaundice, No spider nevi and no striae Rashes: no rashes Nails: normal Neuro General: oriented to person, oriented to place and oriented to time Cranial nerves: Yes Equal, round and reactive pupils present and Yes Normal hearing present Speech: No Abnormal speech present Extrem General: Yes normal to inspection, No clubbing, No cyanosis and No edema Psych Appearance: grossly normal and well kempt Mental Status: mental status grossly normal Speech and movement: Normal speech and movement present Affect: normal affect Attitude: cooperative Thought process: Normal thought process present and not confabulating Thought content: Normal thought content present Insight: Limited insight present (Psych) Judgement: Limited judgement present (Psych) Assessment & Plan Assessment & Plan (1) GERD (gastroesophageal reflux disease): Code(s): K21.9 - Gastro-esophageal reflux disease without esophagitis Category: Medical Qualifiers: Esophagitis presence: esophagitis presence not specified Qualified Code(s): K21.9 - Gastro-esophageal reflux disease without esophagitis (2) Chronic idiopathic constipation: Code(s): K59.04 - Chronic idiopathic constipation Category: Medical (3) Colon cancer screening: Comment: 2020 scope TVA and TA repeat 1 year Code(s): Z12.11 - Encounter for screening for malignant neoplasm of colon Category: Medical (4) Dysuria: Code(s): R30.0 - Dysuria Category: Medical Plan BULGARIAN #[id number] He developed severe LLQ pain 01/17 and presented to the ER. There was no CT finding.. He still has the pain but it is mild. He continues on his Trulance but admits he at times forgets to take it. He can not tell if the pain is worse when he does not move his bowels, but admits he was quite bloated when this happened. He also takes colace. He is having a lot of gas and bloating. I want to change the creon to 2 caps bid instead of qid, as he may be missing doses. He is already on simethicone. He continues on his omeprazole qd. He was worried about taking his creon when he drinks occasional beers, I advise him that it is ok to take this with the beer. RoV 4 weeks. He has a doorknob complaint o9f burning with urination and says he wants a PSA. I will also order a UA. Orders: Orders PSA, Ultra Sensitive Today UA CC w/rflx Micro + Cult Today Medications: New dicyclomine 20 mg PO QID 30 days PRN 120 tabs 1RF abdominal pain Changed From bzdiik-cbkhsqfr-aqczxhu 24,000-76,000 -120,000 unit (Creon) administer with meals and/or snacks 1 cap PO QID 30 days 120 caps 6RF K58.9 - Irritable bowel syndrome without diarrhea To epzrtf-pnbybccq-aqptuqa 24,000-76,000 -120,000 unit (Creon) administer with meals and/or snacks 2 caps PO BID 30 days 120 caps 6RF K58.9 - Irritable bowel syndrome without diarrhea Refilled plecanatide (Trulance) 3 mg PO DAILY 30 days 30 tabs 6RF K59.04 - Chronic idiopathic constipation omeprazole 20 mg PO DAILY 30 days 30 caps 6RF simethicone after meals 180 mg PO QID 30 days 120 caps 6RF R14.0 - Abdominal distension (gaseous) docusate sodium (Colace) 100 mg PO DAILY 30 days 30 caps 6RF K59.01 - Slow transit constipation Patient Instructions: Para abordar hensley dolor, quiero hacer algunos cambios en los medicamentos: 1. safia creon 2 c?psulas dos veces al d?a 2. Comience a usar la diciclomina cuando tenga dolor, puede usarla hasta 4 veces al d?a. 3. Est? jesse safia los medicamentos que le recete con cerveza si es necesario. Quiero verte en 4 semanas para lesly c?mo est?s. Coding Level of Care Code Est Pt Level 3 (15861) Diagnoses Gastroesophageal reflux disease, unspecified whether esophagitis present K21.9 Esophagitis presence: esophagitis presence not specified Chronic idiopathic constipation K59.04 Colon cancer screening Z12.11 Dysuria R30.0
== END 2024-02-22 09:19 | disposition home or self-care (01) ==
PROVIDERS: PCP Internal Medicine; Visit Provider Nurse Practitioner
DX: K21.9 Gastro-esophageal reflux disease without esophagitis (principal); K59.04 Chronic idiopathic constipation; Z12.11 Encounter for screening for malignant neoplasm of colon; R30.0 Dysuria
CPT/HCPCS: 99213

== ENCOUNTER → 2024-02-22 08:34 | Outpatient (BNVA) | payer OTHER, SELFPAY | PROVIDERS: PCP Internal Medicine; Visit Provider Nurse Practitioner | DX: K59.04 Chronic idiopathic constipation (principal); K21.9 Gastro-esophageal reflux disease without esophagitis; R30.0 Dysuria; Z86.010 Personal history of colon polyps | CPT/HCPCS: 99212 ==

== ENCOUNTER 2024-02-27 14:07 | Outpatient (REF) | payer OTHER, SELFPAY ==
[2024-02-27 15:55] LABS: Appearance Urine Clear; Color Urine Yellow; Glucose Urine UA Negative (Negative); Leukocyte Esterase Urine Negative (Negative); Nitrite Urine Negative (Negative); Urine Blood Negative (Negative); Urine Ketones Negative (Negative); Urine Protein Negative (Neg-Trace)
== END 2024-02-27 14:08 | disposition home or self-care (01) ==
LOC: HO.LAB 14:07
PROVIDERS: Visit Provider Nurse Practitioner
DX: R82.90 Unspecified abnormal findings in urine (principal)
CPT/HCPCS: 36415; 81003; 84153

== ENCOUNTER 2024-03-25 09:06 | Outpatient (AMB) | payer OTHER, SELFPAY ==
[2024-03-25 09:10] VITALS: BP 125/74; PULSE 97; BMI 30.6
--- NOTE | 2024-03-25 09:10 | MHC.OFFVIS ---
Vital Signs 03/25/24 09:10 Height 5 ft 6 in Weight 189 lb 9.561 oz BMI 30.6 BP 125/74 Blood Pressure Location Lt brachial Position Sitting Pulse 97 Intake Visit Reasons: 4 weeks LLQ pain, CIC, bloating Intake Note: Patient returns to in office visit in 4 weeks follow up of CIC. CC: Wilfred reports that he sometimes he forgets to takes his medications and sometimes is constipated.He states he is doing better from abdominal pain. Director Of Physical Security Required: Yes Accompanied by: Self / Same As Patient Allergies amlodipine Allergy (Intermediate, Verified 03/25/24 09:18) leg edema carisoprodol [From SOMA] Allergy (Intermediate, Verified 03/25/24 09:18) twitching jennyfer inhibitors Adverse Reaction (Intermediate, Verified 03/25/24 09:18) cough, anxiety HPI HPI 4 weeks LLQ pain, CIC, bloating: Details: Assessment & Plan (1) GERD (gastroesophageal reflux disease): Code(s): K21.9 - Gastro-esophageal reflux disease without esophagitis Category: Medical Qualifiers: Esophagitis presence: esophagitis presence not specified Qualified Code(s): K21.9 - Gastro-esophageal reflux disease without esophagitis (2) Chronic idiopathic constipation: Code(s): K59.04 - Chronic idiopathic constipation Category: Medical (3) Colon cancer screening: Comment: 2020 scope TVA and TA repeat 1 year Code(s): Z12.11 - Encounter for screening for malignant neoplasm of colon Category: Medical (4) Dysuria: Code(s): R30.0 - Dysuria Category: Medical Plan [facility] #[id number] He developed severe LLQ pain 01/17 and presented to the ER. There was no CT finding.. He still has the pain but it is mild. He continues on his Trulance but admits he at times forgets to take it. He can not tell if the pain is worse when he does not move his bowels, but admits he was quite bloated when this happened. He also takes colace. He is having a lot of gas and bloating. I want to change the creon to 2 caps bid instead of qid, as he may be missing doses. He is already on simethicone. He continues on his omeprazole qd. He was worried about taking his creon when he drinks occasional beers, I advise him that it is ok to take this with the beer. RoV 4 weeks. He has a doorknob complaint o9f burning with urination and says he wants a PSA. I will also order a UA. Orders: Orders PSA, Ultra Sensitive Today UA CC w/rflx Micro + Cult Today Medications: New dicyclomine 20 mg PO QID 30 days PRN 120 tabs 1RF abdominal pain Changed From zvrrbv-peoayzgh-syzwxgr 24,000-76,000 -120,000 unit (Creon) administer with meals and/or snacks 1 cap PO QID 30 days 120 caps 6RF K58.9 - Irritable bowel syndrome without diarrhea To xquxpq-tryxqoao-yorsrqd 24,000-76,000 -120,000 unit (Creon) administer with meals and/or snacks 2 caps PO BID 30 days 120 caps 6RF K58.9 - Irritable bowel syndrome without diarrhea Refilled plecanatide (Trulance) 3 mg PO DAILY 30 days 30 tabs 6RF K59.04 - Chronic idiopathic constipation omeprazole 20 mg PO DAILY 30 days 30 caps 6RF simethicone after meals 180 mg PO QID 30 days 120 caps 6RF R14.0 - Abdominal distension (gaseous) docusate sodium (Colace) 100 mg PO DAILY 30 days 30 caps 6RF K59.01 - Slow transit constipation Patient Instructions: Para abordar hensley dolor, quiero hacer algunos cambios en los medicamentos: 1. safia creon 2 c?psulas dos veces al d?a 2. Comience a usar la diciclomina cuando tenga dolor, puede usarla hasta 4 veces al d?a. 3. Est? jesse safia los medicamentos que le recete con cerveza si es necesario. Quiero verte en 4 semanas para lesly c?mo est?s. LABS: Laboratory Tests 01/30/24 07:18 Total PSA 3.15 02/27/24-[address]: Cindy Andres MD ORDERED: Ua Clean Catch QUERIES: Source: Urine, Clean Catch Test Result Flag Reference Ur Color Yellow Ur Appear Clear PH 7.0 5.0-9.0 Ur Glu Negative Negative mg/dL Urine Blood Negative Negative Spec [place] Ur 1.010 1.005-1.025 Urine Protein Negative Neg-Trace mg/dL Urine Ketones Negative Negative mg/dL Ur Nitrite Negative Negative Ur Brandie Esterase Negative Negative TODAY'S VISIT [facility] #[id number] He is now doing well with the addition of the Bentyl and his LLQ pain has resolved. He also is doing better taking the Creon 2 tabs twice a day to promote compliance. He continues on his omeprazole with good control of his GERD. He is now satisfied with his GI regimen. I reviewed the PSA and urinalysis and told him he probably should follow-up with Urology if his urinary burning and frequency continues. ROV 4 months PFSH Medical History Thoracic compression fracture Pure hypercholesterolemia EMILY (generalized anxiety disorder) Mild recurrent major depression HSV (herpes simplex virus) anogenital infection Tubular adenoma of colon Depression with anxiety Neck pain Umbilical hernia Scoliosis Erectile dysfunction Onychomycosis Essential hypertension Hypothyroidism Obesity GERD (gastroesophageal reflux disease) Surgical History Status post excision of lipoma Hx of colonoscopy (~2009) Family History Father HTN (hypertension) Mother HTN (hypertension) Hypercholesteremia Family/Other HTN (hypertension) Thyroid disease Diabetes FH: mental illness Daughter Thyroid disease Son No problems noted. Brother Substance abuse Social History Household Members: None Housing: Apartment Alcohol intake: current Alcohol intake frequency: holidays/special occasions only Alcohol type: beer Patient Tobacco Use Status: Never used Tobacco e-Cigarette/Vaping Use: Never Used Second Hand Smoke Exposure: No service: No Current occupational status: disabled Cognitive needs: No Hearing needs: No Vision needs: Yes (Glasses) Review of Systems Const Denies fatigue, Denies fever(s), Denies night sweats, Denies poor appetite and Denies weight loss Eyes Details: glasses Reports requires corrective lenses ENT Reports Normal hearing present, Denies dental pain, Denies dysphagia, Denies hearing loss, Denies mouth pain, Denies odynophagia, Denies throat swelling, Denies tongue swelling and Reports other (Dentition adequate) Card Reports no additional complaints Resp Reports no additional complaints GI Details: Denies abdominal pain, Denies melena, Reports bloating, Denies hematochezia, Denies constipation, Reports GI cramping, Denies dysphagia, Denies excessive flatus, Denies early satiety, Reports heartburn, Denies diarrhea, Denies nausea, Denies odynophagia, Denies vomiting and Denies hematemesis Reports dysuria Skin/Breast Denies pruritus, Denies lesions, Denies rash and Denies jaundice Neuro Reports Normal hearing present and Denies Abnormal speech present Endo Denies fatigue Aller/Immun Denies throat swelling and Denies tongue swelling Physical Exam Vital Signs: Last Vital Signs Pulse 97 03/25/24 09:10 BP 125/74 03/25/24 09:10 BMI result Body Mass Index 30.6 Const General: cooperative, no acute distress, well developed and well groomed Nutritional Appearance: well nourished and obese Orientation/consciousness: oriented to person, oriented to place and oriented to time Limitations: language barrier HEENT Head: Yes normocephalic and Yes atraumatic Eyes General: appearance normal, both eyes and all related structures Pupils: Equal, round and reactive pupils present Neck Neck: Yes normal visual inspection and Yes no lymphadenopathy Thyroid: Thyroid normal Resp Effort & Inspection: normal respiratory effort and able to speak in complete sentences Auscultation: clear to auscultation bilaterally Cardio Rate: regular rate Rhythm: regular rhythm Heart sounds: Normal, physiologic split S2 sound present Peripheral pulses: radial pulses present and posterior tibial pulses present GI Inspection: No distended, No Abdominal panniculus present and Yes obesity Palpation (GI): Soft to palpation, nontender, no guarding, not rigid and No hepatosplenomegaly present Percussion: Yes normal to percussion Auscultation: normal bowel sounds Rectal Exam - Male: Yes deferred Skin General skin exam: no rashes or lesions noted, turgor normal, skin not dry, no jaundice, No spider nevi and no striae Rashes: no rashes Nails: normal Neuro General: oriented to person, oriented to place and oriented to time Cranial nerves: Yes Equal, round and reactive pupils present and Yes Normal hearing present Speech: No Abnormal speech present Extrem General: Yes normal to inspection, No clubbing, No cyanosis and No edema Psych Appearance: grossly normal and well kempt Mental Status: mental status grossly normal Speech and movement: Normal speech and movement present Affect: normal affect Attitude: cooperative Thought process: Normal thought process present and not confabulating Thought content: Normal thought content present Insight: Limited insight present (Psych) Judgement: Limited judgement present (Psych) Assessment & Plan Assessment & Plan (1) GERD (gastroesophageal reflux disease): Code(s): K21.9 - Gastro-esophageal reflux disease without esophagitis Category: Medical Qualifiers: Esophagitis presence: esophagitis presence not specified Qualified Code(s): K21.9 - Gastro-esophageal reflux disease without esophagitis (2) Chronic idiopathic constipation: Code(s): K59.04 - Chronic idiopathic constipation Category: Medical Plan [facility] #[id number] He is now doing well with the addition of the Bentyl and his LLQ pain has resolved. He also is doing better taking the Creon 2 tabs twice a day to promote compliance. He continues on his omeprazole with good control of his GERD. He is now satisfied with his GI regimen. I reviewed the PSA and urinalysis and told him he probably should follow-up with Urology if his urinary burning and frequency continues. ROV 4 months Medications: Refilled dicyclomine 20 mg PO QID PRN 120 tabs 1RF abdominal pain 30 days omeprazole 20 mg PO DAILY 30 caps 6RF 30 days simethicone after meals 180 mg PO QID 120 caps 6RF 30 days R14.0 - Abdominal distension (gaseous) docusate sodium (Colace) 100 mg PO DAILY 30 caps 6RF 30 days K59.01 - Slow transit constipation pcgspo-zptvtwhc-tsxuwdm 24,000-76,000 -120,000 unit (Creon) administer with meals and/or snacks 2 caps PO BID 120 caps 6RF 30 days K58.9 - Irritable bowel syndrome without diarrhea Coding Level of Care Code Est Pt Level 3 (24146) Diagnoses Gastroesophageal reflux disease, unspecified whether esophagitis present K21.9 Esophagitis presence: esophagitis presence not specified Chronic idiopathic constipation K59.04
== END 2024-03-25 09:31 | disposition home or self-care (01) ==
PROVIDERS: PCP Internal Medicine; Visit Provider Nurse Practitioner
DX: K21.9 Gastro-esophageal reflux disease without esophagitis (principal); K59.04 Chronic idiopathic constipation
CPT/HCPCS: 99213

== ENCOUNTER → 2024-03-25 09:06 | Outpatient (BNVA) | payer OTHER, SELFPAY | PROVIDERS: PCP Internal Medicine; Visit Provider Nurse Practitioner | DX: K21.9 Gastro-esophageal reflux disease without esophagitis (principal); K59.04 Chronic idiopathic constipation; Z79.899 Other long term (current) drug therapy | CPT/HCPCS: 99212 ==

== ENCOUNTER 2024-04-02 06:52 | Outpatient (REF) | payer OTHER, SELFPAY ==
[2024-04-02 08:32] LABS: Appearance Urine Clear; Color Urine Yellow; Glucose Urine UA Negative (Negative); Leukocyte Esterase Urine Negative (Negative); Nitrite Urine Negative (Negative); PH 7.5 (5.0-9.0); Urine Blood Negative (Negative); Urine Ketones Negative (Negative); Urine Protein Trace mg/dL (Neg-Trace)
== END 2024-04-02 06:53 | disposition home or self-care (01) ==
LOC: HO.LAB 06:52
PROVIDERS: PCP Internal Medicine; Visit Provider Internal Medicine
DX: R30.0 Dysuria (principal)
CPT/HCPCS: 81003

== ENCOUNTER 2024-07-03 13:14 | Outpatient (AMB) | payer OTHER, SELFPAY ==
--- NOTE | 2024-07-03 13:32 | A.OFFPC_ITS ---
Vital Signs 07/03/24 13:34 Height 5 ft 6 in Weight 188 lb BMI 30.3 BP 124/76 Blood Pressure Location Lt brachial Position Sitting Intake Visit Reasons: Annual Exam Intake Note: Patient here for a Physical Exam Reproductive Surgeon Required: No Accompanied by: Self / Same As Patient Allergies amlodipine Allergy (Intermediate, Verified 07/03/24 13:53) leg edema carisoprodol [From SOMA] Allergy (Intermediate, Verified 07/03/24 13:53) twitching jennyfer inhibitors Adverse Reaction (Intermediate, Verified 07/03/24 13:53) cough, anxiety Medication List - Last Reconciled 07/03/24 by Cindy Llanes MD blood pressure monitor As directed calcium carbonate-vitamin D3 500 mg-10 mcg (400 unit) (Oyster Shell Calcium-Vit huntley D3) 1 tab PO BID 90 days dicyclomine 20 mg PO QID PRN 30 days docusate sodium (Colace) 100 mg PO DAILY 30 days hydrochlorothiazide 25 mg PO DAILY 90 days levothyroxine 112 mcg PO DAILY 90 days jggtwj-qbyuwumb-kngoldb 24,000-76,000 -120,000 unit (Creon) 2 caps PO BID 30 days loratadine 10 mg PO DAILY nabumetone 750 mg PO BID 90 days omeprazole 20 mg PO DAILY 30 days plecanatide (Trulance) 3 mg PO DAILY 30 days polyvinyl alcohol 1.4% 1 drp ophthalmic (eye) BID potassium chloride ER 10 mEq PO DAILY 10 days pravastatin 20 mg PO DAILY 90 days [recliner As directed] [Shower Chair As directed] simethicone 180 mg PO QID 30 days tadalafil 10 mg PO DAILY tizanidine 4 mg PO BID PRN 5 days Tobacco use date assessed: 02/07/24 Fall risk assessment: No Falls in past year Last assessed Fall Risk: 07/03/24 Dental Screening Dental Screen Date: 07/03/24 Did you have a dental visit in the last 12 months?: No Did you have a dental problem in the last 6 months where you did not have access to dental care?: No Was dental information given to patient?: Patient has dentist HPI HPI Comments History of Present Illness Details This is a 63-year-old male with mild recurrent major depression that comes for his physical exam. He is depressed for declines any treatment now. Colonoscopy done 2022 and should be repeated 2025. No chest pain or shortness on breath. [facility] Medical History (Updated 07/03/24 @ 14:24 by Cindy Llanes MD) Thoracic compression fracture Pure hypercholesterolemia EMILY (generalized anxiety disorder) Mild recurrent major depression HSV (herpes simplex virus) anogenital infection Tubular adenoma of colon Depression with anxiety Neck pain Umbilical hernia Scoliosis Erectile dysfunction Onychomycosis Essential hypertension Hypothyroidism Obesity GERD (gastroesophageal reflux disease) Surgical History Status post excision of lipoma Hx of colonoscopy (~2009) Family History (Updated 07/03/24 @ 13:59 by Cindy Llanes MD) Father HTN (hypertension) Mother HTN (hypertension) Hypercholesteremia Family/Other HTN (hypertension) Thyroid disease Diabetes FH: mental illness Daughter Thyroid disease Son No problems noted. Brother Substance abuse Sister Breast cancer Social History Household Members: None Housing: Apartment Alcohol intake: current Alcohol intake frequency: holidays/special occasions only Alcohol type: beer Patient Tobacco Use Status: Never used Tobacco e-Cigarette/Vaping Use: Never Used Second Hand Smoke Exposure: No service: No Current occupational status: disabled Cognitive needs: No Hearing needs: No Vision needs: Yes (Glasses) Questionnaire PHQ-9 Over the last 2 weeks, how often have you been bothered by any of the following problems? 1. Little interest or pleasure in doing things: not at all 2. Feeling down, depressed, or hopeless: several days 3. Trouble falling or staying asleep, or sleeping too much: several days 4. Feeling tired or having little energy: several days 5. Poor appetite or overeating: not at all 6. Feeling bad about yourself - or that you are a failure or have let yourself or your family down: not at all 7. Trouble concentrating on things, such as reading the newspaper or watching television: nearly every day 8. Moving or speaking so slowly that other people could have noticed. Or the opposite - being so fidgety or restless that you have been moving around a lot more than usual: several days 9. Thoughts that you would be better off or of hurting yourself in some way: not at all Total score: 7 Depression Screening Interpretation: Positive Depression Screening Follow-up: Existing condition, Follow-up Visit Requested and Declines treatment Depression Screening Done: Yes 07481 - PHQ-9 Billing: Yes Source: Developed by Drs. Billy Hagen, Melida Vasquez, Compa Mendez and colleagues, with an educational eze from [employer] Thrive Questionnaire Date Thrive assessed: 07/03/24 I am a: Patient What is your living situation today?: I have a steady place to live Within the past 12 months, did the food you bought not last and you didn't have the money to get more?: I choose not to answer this question Within the past 12 months, did you worry whether your food would run out before you got money to buy more?: I choose not to answer this question Do you have trouble paying for medicines?: No Do you have trouble getting transportation to medical appointments?: No Do you have trouble paying your heating and electricity bill?: No Do you have trouble taking care of your child, family member or friend?: No Do you have trouble with day-to-day activities such as bathing, preparing meals, shopping, managing finances, etc.?: No Are you currently unemployed and looking for a job?: No Are you interested in more education?: No Please select the resources that you would like help with: None Currently or been in a relationship where the following occur: I choose not to answer THRIVE Score: 0 AUDIT C Alcohol Use Questionnaire (AUDIT-C) 1. How often do you have a drink containing alcohol?: Monthly or less 2. How many drinks containing alcohol do you have on a typical day when you are drinking?: 1 or 2 3. How often do you have six or more drinks on one occasion?: Less than monthly Total Score: 2 Score Reviewed/Action Taken: No EMILY-7 AMB Questionnaire EMILY-7 Date EMILY - 7 assessed: 07/03/24 Feeling nervous, anxious, or on edge: 0 = Not at all Not being able to stop or control worryin = Not at all Worrying too much about different things: 0 = Not at all Trouble relaxin = Not at all Being so restless that it is hard to sit still: 0 = Not at all Becoming easily annoyed or irritable: 0 = Not at all Feeling afraid as if something awful might happen: 0 = Not at all Total EMILY-7 score (0-4 normal; 5-9 mild; 10-14 moderate; 15-21 severe): 0 Source: Developed by Drs. Billy Hagen, Melida Vasquez, Compa Mendez and colleagues, with an educational eze from [employer] EMILY-7 Assessment Billing EMILY-7 Assessment Tool: EMILY-7 Assessment 62407 Review of Systems Const All systems reviewed & are unremarkable except as noted in HPI and below Card Denies chest pain at rest, Denies chest pain with activity, Denies edema, Denies irregular heart rhythm, Denies claudication, Denies dyspnea, Denies dyspnea on exertion, Denies orthopnea, Denies paroxysmal nocturnal dyspnea and Denies slow heart rate Resp Denies cough, Denies dyspnea and Denies dyspnea on exertion GI Denies abdominal pain, Denies change in bowel habits, Denies excessive flatus, Denies nausea and Denies vomiting Denies urinary hesitancy, Denies urinary incontinence and Denies urinary urgency Musc Denies abnormal gait, Denies atrophy, Denies deformity and Denies limited range of motion Skin/Breast Denies bleeding lesions, Denies changing lesions and Denies rash Neuro Denies abnormal gait, Denies behavioral changes and Denies lack of coordination Psych Denies behavioral changes Physical exam (Primary Care) Vital Signs: Last Vital Signs BP 124/76 07/03/24 13:34 BMI result Body Mass Index 30.3 Tobacco/Smoking Status: Tobacco use Status Tobacco use date assessed 02/07/24 07/03/24 13:39 Patient Tobacco Use Status Never used Tobacco 07/03/24 13:39 e-Cigarette/Vaping Use Never Used 07/03/24 13:39 PHQ-9: PHQ-9 Score PHQ-9: Total score 7 07/03/24 13:56 Depression Screening Interpretation: Positive Depression Screening Follow-up: Existing condition, Follow-up Visit Requested and Declines treatment Thrive Assessment: Date of Thrive Assessment Date Thrive assessed 07/03/24 07/03/24 13:39 Currently or been in a relationship where the following occur: I choose not to answer HENGA Head: Yes normal to inspection, Yes normocephalic and Yes atraumatic Ears: external ears normal Eyes General: appearance normal, both eyes and all related structures Eyelids: Yes eyelids normal Conjunctivae: conjunctivae normal Neck Neck: Yes normal visual inspection and Yes supple Resp Effort & Inspection: normal respiratory effort Auscultation: clear to auscultation bilaterally Cardio Jugular venous distension: no JVD Rate: regular rate Rhythm: regular rhythm Heart sounds: S1 normal heart sound present and S2 normal heart sound present GI Inspection: Yes normal to inspection Palpation (GI): Soft to palpation and nontender Auscultation: normal bowel sounds Skin General skin exam: no rashes or lesions noted Neuro General: no focal motor deficits Extrem General: Yes full ROM Psych Appearance: grossly normal Assessment and Plan Assessment & Plan (1) Physical exam: Code(s): Z00.00 - Encounter for general adult medical examination without abnormal findings Plan: Repeat in a year. (2) Mild recurrent major depression: Code(s): F33.0 - Major depressive disorder, recurrent, mild Plan: Declines treatment. Orders: Orders Comprehensive [place]. Panel Fast Today I10 - Essential (primary) hypertension Lipid Panel Today E78.5 - Hyperlipidemia, unspecified, I10 - Essential (primary) hypertension Thyroid Stimulating Hormone Today E03.8 - Other specified hypothyroidism, E06.3 - Autoimmune thyroiditis Coding Level of Care Code Est Pt Prev Care 40-64y(70559) Diagnoses Physical exam Z00.00 Mild recurrent major depression F33.0 Additional Codes EMILY-7 Assessment Billing - EMILY-7 Assessment Tool: EMILY-7 Assessment [id number] ([id number]) Time Spent (min) 30
[2024-07-03 13:34] VITALS: BP 124/76; BMI 30.3
== END 2024-07-03 14:09 | disposition home or self-care (01) ==
PROVIDERS: PCP Internal Medicine; Visit Provider Internal Medicine
DX: Z00.00 Encounter for general adult medical examination without abnormal findings (principal); F33.0 Major depressive disorder, recurrent, mild
CPT/HCPCS: 99396

== ENCOUNTER 2024-07-07 15:17 | Emergency (ER) | payer OTHER, SELFPAY ==
--- NOTE | ~2024-07-07 | XR_ITS ---
EXAMINATION: XR CHEST CLINICAL INFORMATION: Syncope. COMPARISON: Chest radiograph dated 12/06/2017. TECHNIQUE: 2 views of the chest were obtained. FINDINGS: The heart is normal in size. The lungs are clear. Pleural spaces are clear. No pneumothorax. No acute osseous abnormality. XR/XR chest 2V IMPRESSION: No acute cardiopulmonary disease. Electronically signed by: Mo Hensley DO 07/07/2024 04:09 PM EDT
--- NOTE | ~2024-07-07 | CT_ITS ---
EXAMINATION: CT ABDOMEN AND PELVIS WITH CONTRAST CLINICAL INFORMATION: Severe rectal pain. Lower abdominal pain. COMPARISON: CT abdomen and pelvis January 18, 2024 TECHNIQUE: Multidetector volumetric images were obtained from the superior aspect of the liver through the pubic symphysis following administration 85 mL of Omnipaque 350 intravenous contrast. Sagittal and coronal reformatted images were obtained on the technologist's workstation. Oral contrast: No This CT examination was performed using dose optimization techniques as appropriate, variously including the following: *Automated exposure control *Adjustment of mA and/or kV according to patient size (this includes techniques or standardized protocols for targeted exams where dose is matched to indication/reason for exam; i.e. extremities or head) *Use of iterative reconstruction technique DLP: 526 mGy-cm FINDINGS: Visualized lung bases are again noted to demonstrate trace pleural effusions with dependent atelectasis. Cannot exclude sequestration of the medial right lung base as suspected previously. The liver is normal in size. The gallbladder is normal in appearance. The pancreas, spleen and adrenal glands are unremarkable. Symmetrically enhancing kidneys. No hydronephrosis of either kidney. The stomach is relatively decompressed. Normal caliber loops of small and large bowel. Normal appendix. There appears to be mild circumferential mucosal thickening of the rectum with some adjacent fat stranding. There is a small amount of suspected extraluminal air along the left lateral aspect of the rectum with a few punctate foci of air abutting the right and left christina of the prostate gland. A well organized pelvic fluid collection is not present. Normal caliber abdominal aorta demonstrating mild atherosclerotic disease. No retroperitoneal lymphadenopathy. Stable small fat-containing umbilical hernia. The bladder demonstrates mild diffuse wall thickening, nonspecific. The prostate gland is enlarged measuring 5.5 cm in transverse dimension. Tiny fat-containing inguinal hernias are present bilaterally. No inguinal lymphadenopathy. Moderate diffuse degenerative changes of the spine. CT/CT abdomen pelvis w IV con IMPRESSION: There appears to be mild circumferential mucosal thickening of the rectum with some adjacent fat stranding. There is also a small amount of suspected extraluminal air along the left lateral aspect of the rectum with a few punctate foci of air abutting the right and left christina of the prostate gland. A well organized pelvic fluid collection is not present. Findings are nonspecific but a microperforation is suspected. It is unclear if there is an underlying infectious/inflammatory process or possibly malignancy. Clinical correlation is recommended. Direct inspection/surgical consultation likely warranted. Fleischner guidelines were followed. Electronically signed by: Gavin Gray MD 07/07/2024 06:05 PM EDT RP
[2024-07-07 15:21] VITALS: BP 118/76; PULSE 92; O2SAT 98
[2024-07-07 15:28] VITALS: BP 120/74; PULSE 85; RESP 20; TEMP 36.9; O2SAT 97; BMI 29.0
--- NOTE | 2024-07-07 15:41 | ECG_ITS ---
Test Reason : SYNCOPE Blood Pressure : / mmHG Vent. Rate : 090 BPM Atrial Rate : 090 BPM P-R Int : 152 ms QRS Dur : 100 ms QT Int : 394 ms P-R-T Axes : 048 050 063 degrees QTc Int : 481 ms Normal sinus rhythm Nonspecific T wave abnormality Prolonged QT Abnormal ECG When compared with ECG of 18-NOV-2016 22:03, No significant change was found Referred By: Arlen Lozano Electronically Signed By:JESSICA VICTOR
--- NOTE | 2024-07-07 15:53 | ED.SYNCOPE ---
HPI - Syncope General Chief Complaint: Syncope Stated Complaint: Syncope Time Seen by Provider: 07/07/24 15:46 Source: patient, EMS and old records reviewed Mode of arrival: EMS Limitations: no limitations History of Present Illness ED Provider: HOWARD BRO narrative: 63 yo male with PMH of HLD, back pain, anxiety, depression, GERD, HTN, hypothyroidism here with c/o having prostate biopsy at [facility] today for inflammation - has procedure with local anesthetic notes he was awake went to clinic for [employer] services felt weird, lightheaded with intense rectal pain and upper and lower abdominal pain. No CP/SOB. His sister was with him and caught him he did have LOC for seconds. No trauma. He had no seizure activity. He denies fevers, chills, rectal bleeding, issues urinating. He still has significant rectal pain. MD complaint: loss of consciousness and collapsed Onset (ago): hour(s) (1) -: second(s) Prodromal symptoms: lightheaded and other (abdominal pain) Witnessed: Yes - by Bystander Context: standing up Injuries sustained associated with event: none Current symptoms: other (rectal pain) History: other (recent rectal biopsy) Treatments prior to arrival: none Related Data Home Medications ?Medication ?Instructions ?Recorded ?Confirmed tadalafil 10 mg tablet 10 mg PO DAILY 01/10/23 07/03/24 polyvinyl alcohol 1.4 % eye drops 1 drp ophthalmic (eye) BID 06/14/23 07/03/24 Previous Rx's ?Medication ?Instructions ?Recorded loratadine 10 mg tablet 10 mg PO DAILY #30 tabs 04/30/23 nabumetone 750 mg tablet 750 mg PO BID 90 days #180 tabs 08/27/23 blood pressure monitor #1 ea 09/01/23 recliner #1 ea 09/26/23 tizanidine 4 mg tablet 4 mg PO BID PRN muscle spasticity 09/26/23 5 days #10 tabs potassium chloride 10 mEq 10 meq PO DAILY 10 days #10 caps 11/17/23 capsule,extended release pravastatin 20 mg tablet 20 mg PO DAILY 90 days #90 tabs 11/17/23 calcium carbonate 500 mg-vitamin 1 tab PO BID 90 days #180 tabs 02/07/24 D3 10 mcg (400 unit) tablet (Oyster Shell Calcium-Vitamin D3) hydrochlorothiazide 25 mg tablet 25 mg PO DAILY 90 days #90 tabs 04/18/24 Shower Chair #1 ea 02/19/24 plecanatide 3 mg tablet (Trulance) 3 mg PO DAILY 30 days #30 tabs 02/22/24 levothyroxine 112 mcg tablet 112 mcg PO DAILY 90 days #90 tabs 03/12/24 dicyclomine 20 mg tablet 20 mg PO QID PRN abdominal pain 30 03/25/24 days #120 tabs docusate sodium 100 mg capsule 100 mg PO DAILY 30 days #30 caps 03/25/24 (Colace) [id number] 2 cap PO BID 30 days #120 caps 03/25/24 24,000-76,000-120,000 unit capsule,delayed rel (Creon) omeprazole 20 mg capsule,delayed 20 mg PO DAILY 30 days #30 caps 03/25/24 release simethicone 180 mg capsule 180 mg PO QID 30 days #120 caps 03/25/24 Allergies Allergy/AdvReac Type Severity Reaction Status Date / Time amlodipine Allergy Intermediate leg edema Verified 07/07/24 15:31 carisoprodol [From SOMA] Allergy Intermediate twitching Verified 07/07/24 15:31 jennyfer inhibitors AdvReac Intermediate cough, Verified 07/07/24 15:31 anxiety Review of Systems Review of Systems: Constitutional : No Fever, No Chills, No Fatigue ENT/Mouth : No sore throat, No Rhinorrhea Eyes: No Eye Pain, No Swelling, No Redness Cardiovascular : No Chest Pain, No SOB, No Dyspnea on Exertion Respiratory : No Cough, No Sputum Gastrointestinal : No Nausea, No Vomiting, No Diarrhea, no abdominal Pain Genitourinary : No Dysuria, No Urinary Frequency, No Hematuria, pos rectal pain Musculoskeletal : No joint pain, No Myalgias, No Joint Swelling Skin : No Skin Lesions, No rash Neuro : No Weakness, No Numbness, No Dizziness, no Headache, pos syncope Psych : No Anxiety/Panic, No Depression All other systems reviewed and are negative [facility] Past Medical History Attestation statement: The following information was validated with the patient. Source: old records reviewed Medical History Thoracic compression fracture Pure hypercholesterolemia EMILY (generalized anxiety disorder) Mild recurrent major depression HSV (herpes simplex virus) anogenital infection Tubular adenoma of colon Depression with anxiety Neck pain Umbilical hernia Scoliosis Erectile dysfunction Onychomycosis Essential hypertension Hypothyroidism Obesity GERD (gastroesophageal reflux disease) Surgical History Status post excision of lipoma Hx of colonoscopy (~2009) Family History Family History (Updated 07/03/24 @ 13:59 by Cindy Llanes MD) Father HTN (hypertension) Mother HTN (hypertension) Hypercholesteremia Family/Other HTN (hypertension) Thyroid disease Diabetes FH: mental illness Daughter Thyroid disease Son No problems noted. Brother Substance abuse Sister Breast cancer Social History Social History Household Members: None Housing: Apartment Alcohol intake: current Alcohol intake frequency: holidays/special occasions only Alcohol type: beer Patient Tobacco Use Status: Never used Tobacco Smoked in Last 30 Days: No e-Cigarette/Vaping Use: Never Used Second Hand Smoke Exposure: No Use of substances other than those prescribed or required for medical reasons: No Advance Directives: No Advance Directives Information Provided: No service: No Current occupational status: disabled Cognitive needs: No Hearing needs: No Vision needs: Yes (Glasses) Physical Exam Vital Signs: Vital Signs: Last Vital Signs Temp 98.4 F 07/07/24 15:28 Pulse 86 07/07/24 18:06 Resp 17 07/07/24 18:06 BP 130/83 07/07/24 18:06 Pulse Ox 99 07/07/24 18:06 O2 Del Method Room Air 07/07/24 18:06 BMI result Body Mass Index 29.0 Appearance: Alert. Oriented X3. No acute distress. Eyes: Pupils equal, round and reactive to light. ENT: Pharynx normal. Neck: Normal inspection. Neck supple. CVS: Normal heart rate and rhythm. Pulses normal. Respiratory: No respiratory distress. Breath sounds normal. Abdomen: Soft and nontender. Rectum: no prolapse, small non thrombosed hemorrhoid, no bleeding noted out of anus I did not perform digital exam Skin: Skin warm and dry. Normal skin color. Normal skin turgor. Extremities: No lower extremity edema. No calf ttp Neuro: Oriented X 3. No motor deficit. No sensory deficit. Medications Administered Discontinued Medications Generic Name Dose Route Start Last Admin Trade Name Freq PRN Reason Stop Dose Admin Iohexol 100 ml 09/16/24 17:01 07/07/24 17:01 Iohexol 350 Mg/Ml 100 Ml Infus..Btl IV 07/07/24 17:02 85 ml ONCE ONE Administration Potassium Chloride 20 meq 07/07/24 16:37 07/07/24 17:03 Potassium Chloride Packet 20 Meq Packet PO 07/07/24 16:38 20 meq ONCE ONE Administration Medical Decision Making Medical Decision Making MDM Narrative: 63 yo male with PMH of HLD, back pain, anxiety, depression, GERD, HTN, hypothyroidism here with c/o syncope in office after having prostate biopsy today no rectal bleeding noted no CP/SOB he had intense rectal pain that went up into abdomen. At this time pain is out of proportion to procedure he has no abnormal prolapse or thrombosed hemorrhoid. 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 Christy this is expected microperforations is expected no need for further workup or antibiotics can be DC home Lab Data [facility] Lab Attestation statement: I reviewed the patient's lab results. 07/07/24 16:14 07/07/24 16:14 Labs: Lab Results 07/07/24 07/07/24 07/07/24 Range/Units 16:12 16:14 17:54 WBC 9.7 (4.8-10.8) X10*3/uL RBC 4.91 (4.60-5.80) X10*6/uL Hgb 15.7 (14.0-18.0) g/dl Hct 44.3 (42.0-52.0) % MCV 90.2 (80.0-98.0) fL MCH 32.0 (27.0-33.0) pg MCHC 35.4 (31.0-36.0) g/dl RDW 11.5 (11.0-16.0) % Plt Count 183 (160-400) X10*3/uL MPV 10.4 (9.4-12.4) fL Immature Gran % (Auto) 0.3 (0.0-0.4) % Neut % (Auto) 78.7 H (45-73) % Lymph % (Auto) 14.3 L (20-40) % [place] % (Auto) 5.6 (2-11) % Eos % (Auto) 0.7 (0-4) % Baso % (Auto) 0.4 (0-2) % Lymph # (Auto) 1.4 (1.2-4.9) X10*3/uL [place] # (Auto) 0.5 (0.1-1.2) X10*3/uL Eos # (Auto) 0.1 (0.0-0.4) X10*3/uL Baso # (Auto) 0.0 (0.0-0.2) X10*3/uL Abs Immat Gran (auto) 0.03 (0.00-0.03) X10*3/uL Absolute Neuts (auto) 7.6 (2.0-8.3) x10*3/uL Absolute Nucleated RBC 0.000 (0.0-0.012) X10*3/uL Nucleated RBC % (auto) 0.0 (0.0-0.2) /100WBC Sodium 137 (135-145) mmol/L Potassium 3.2 L (3.3-5.1) mmol/L Chloride 100 (96-108) mmol/L Carbon Dioxide 25 (22-29) mmol/L Anion Gap 15 (12-20) BUN 16 (9-16) mg/dL Creatinine 1.25 (0.5-1.4) mg/dL Estim Creat Clear Calc 61.8 Estimated GFR 58 Random Glucose 148 H (60-115) mg/dL Calcium 9.9 D (8.4-10.2) mg/dL Magnesium 2.0 (1.6-2.6) mg/dL Total Bilirubin 0.8 (0.0-1.0) mg/dL AST 17 (5-37) U/L ALT 18 (0-40) U/L Alkaline Phosphatase 92 (39-117) U/L Troponin I High Sens < 2.7 (<3.5-35.0) ng/L Total Protein 7.1 (6.5-8.0) g/dL Albumin 4.4 (3.5-5.0) g/dL Urine Color Yellow Urine Appearance Clear Urine pH 7.5 (5.0-9.0) Ur Specific Quinn 1.025 (1.005-1.025) Urine Protein Negative (Neg-Trace) mg/dL Urine Glucose (UA) Negative (Negative) mg/dL Urine Ketones Trace (Negative) mg/dL Urine Blood Moderate (2+) H (Negative) Urine Nitrite Negative (Negative) Ur Leukocyte Esterase Negative (Negative) Urine RBC >20 H (0-2) /HPF Urine WBC 0-5 (0-5) /HPF Ur Squamous Epith Cells 0-2 (0-2) /HPF Urine Bacteria None Seen (None Seen) Hyaline Casts 0-2 (0-2) /LPF Influenza Type A (PCR) NEGATIVE (Negative) Influenza Type B (PCR) NEGATIVE (Negative) RSV RNA Qual (PCR) NEGATIVE (Negative) SARS-CoV-2 RNA (RT-PCR) NEGATIVE (Negative) Independent Interpretation I performed an independent interpretation of an: EKG and CT Scan (microperforation) Interpretation: Rate: 90 Rhythm: NSR [place]: normal Normal P waves. Normal SHONDA. Normal QRS complex. ST T wave : normal no ARELI qTC: 481 prolonged prior studies: no acute ischemia The study has been interpreted contemporaneously by me. . Radiology Impression Discussion of test interpretation with radiology: I have reviewed the radiologist's reading. Independent Historian Clinical information obtained from an independent historian. History obtained from or confirmed by: EMS External Record Review External record reviewed: Outpatient record Discharge Plan Discharge Clinical Impression: Anal or rectal pain, Acute hypokalemia Syncope Qualifiers: Syncope type: unspecified Qualified Code(s): R55 - Syncope and collapse Patient Disposition: Home, Self-Care Instructions: Hypokalemia (ED), Syncope (ED), Proctitis (ED) Additional Instructions: potassium slightly low we repleted it in the ER discussed case with Urology including your CT scan they note this is expected course take the rest of your antibiotics call your surgeon tomorrow if you have any further worsening pain return for fevers, chills, abdominal pain, rectal bleeding, difficulty urinating or any other concerns. Prescriptions: No Action (DME) blood pressure monitor Kit See Rx Instructions .Route Qty: 1 0RF Rx Instructions: As directed tizanidine 4 mg tablet 4 mg PO BID PRN (Reason: muscle spasticity) 5 Days Qty: 10 0RF (DME) recliner See Rx Instructions .Route .MEDSUPPLY Qty: 1 0RF Rx Instructions: As directed pravastatin 20 mg tablet 20 mg PO DAILY 90 Days Qty: 90 3RF potassium chloride 10 mEq capsule, extended release 10 meq PO DAILY 10 Days Qty: 10 0RF (DME) Shower Chair See Rx Instructions .Route .MEDSUPPLY Qty: 1 0RF Rx Instructions: As directed levothyroxine 112 mcg tablet 112 mcg PO DAILY 90 Days Qty: 90 1RF loratadine 10 mg tablet 10 mg PO DAILY Qty: 30 0RF calcium carbonate-vitamin D3 [Oyster Shell Calcium-Vit D3] 500 mg-10 mcg (400 unit) tablet 1 tab PO BID 90 Days Qty: 180 3RF hydrochlorothiazide 25 mg tablet 25 mg PO DAILY 90 Days Qty: 90 3RF nabumetone 750 mg tablet 750 mg PO BID 90 Days Qty: 180 0RF tadalafil 10 mg tablet 10 mg PO DAILY polyvinyl alcohol 1.4 % drops 1 drp ophthalmic (eye) BID Trulance 3 mg tablet 3 mg PO DAILY 30 Days Qty: 30 6RF dicyclomine 20 mg tablet 20 mg PO QID PRN (Reason: abdominal pain) 30 Days Qty: 120 1RF docusate sodium [Colace] 100 mg capsule 100 mg PO DAILY 30 Days Qty: 30 6RF Creon 24,000-76,000 -120,000 unit capsule,delayed release(DR/EC) 2 cap PO BID 30 Days Qty: 120 6RF Rx Instructions: administer with meals and/or snacks omeprazole 20 mg capsule,delayed release(DR/EC) 20 mg PO DAILY 30 Days Qty: 30 6RF simethicone 180 mg capsule 180 mg PO QID 30 Days Qty: 120 6RF Rx Instructions: after meals Print Language: Azerbaijani
[2024-07-07 16:20] LABS: Basophils Percent Auto 0.4 % (0-2); Eosinophils Absolute Auto 0.1 X10*3/uL (0.0-0.4); Eosinophils Percent Auto 0.7 % (0-4); Hematocrit 44.3 % (42.0-52.0); Hemoglobin 15.7 g/dl (14.0-18.0); Imm Gran Abs Auto 0.03 X10*3/uL (0.00-0.03); Imm Gran Pct Auto 0.3 % (0.0-0.4); Lymphocytes Absolute Auto 1.4 X10*3/uL (1.2-4.9); Lymphocytes Percent Auto 14.3 % (20-40); MANUAL DIFF FLAG NO; Mean Corpuscular HGB Conc 35.4 g/dl (31.0-36.0); Mean Corpuscular Volume 90.2 fL (80.0-98.0); Mean Platelet Volume 10.4 fL (9.4-12.4); Monocytes Absolute Auto 0.5 X10*3/uL (0.1-1.2); Monocytes Percent Auto 5.6 % (2-11); Neutrophils Absolute Auto 7.6 x10*3/uL (2.0-8.3); Neutrophils Percent Auto 78.7 % (45-73); Platelet Count 183 X10*3/uL (160-400); Red Blood Count 4.91 X10*6/uL (4.60-5.80); Red Cell Distribution Width 11.5 % (11.0-16.0); White Blood Count 9.7 X10*3/uL (4.8-10.8)
[2024-07-07 16:35] LABS: Alanine Aminotransferase 18 U/L (0-40); Albumin Level 4.4 g/dL (3.5-5.0); Alkaline Phosphatase 92 U/L (39-117); Anion Gap 15 (12-20); Aspartate Amino Transferase 17 U/L (5-37); Bilirubin Total 0.8 mg/dL (0.0-1.0); Blood Urea Nitrogen 16 mg/dL (9-16); Calcium 9.9 mg/dL (8.4-10.2); Carbon Dioxide 25 mmol/L (22-29); Chloride 100 mmol/L (96-108); Creatinine Clr Calc Pharmacy 61.8; Estimated Glomerular Filt Rate 58; Glucose Random 148 mg/dL (60-115); Potassium 3.2 mmol/L (3.3-5.1); Sodium 137 mmol/L (135-145); Total Protein 7.1 g/dL (6.5-8.0)
[2024-07-07 16:51] LABS: Troponin-I High Sensitivity < 2.7 ng/L (<3.5-35.0)
[2024-07-07 17:00] LABS: Influenza A PCR NEGATIVE (Negative); Influenza B PCR NEGATIVE (Negative); Resp Syncy Virus RNA Qual PCR NEGATIVE (Negative); SARS COV2 PCR INHOUSE NEGATIVE (Negative)
[2024-07-07] MEDS: iohexoL 350 MG/ML 100 ML INFUS..BTL IV (17:01)
[2024-07-07] MEDS: Potassium Chloride Packet 20 MEQ PACKET PO (17:03)
[2024-07-07 18:06] VITALS: BP 130/83; PULSE 86; RESP 17; O2SAT 99
[2024-07-07 18:11] LABS: Appearance Urine Clear; Color Urine Yellow; Glucose Urine UA Negative (Negative); Leukocyte Esterase Urine Negative (Negative); Nitrite Urine Negative (Negative); PH 7.5 (5.0-9.0); Specific Gravity - Urine 1.025 (1.005-1.025); UMIC TRIGGER UACC YES; Urine Blood Moderate (2+) (Negative); Urine Ketones Trace mg/dL (Negative); Urine Protein Negative (Neg-Trace)
[2024-07-07 18:13] LABS: Bacteria Urine None Seen (None Seen); Hyaline Casts Urine 0-2 /LPF (0-2); RBC Urine >20 /HPF (0-2); Squamous Epithelial Cell Urine 0-2 /HPF (0-2); WBC Urine 0-5 /HPF (0-5)
[2024-07-07 18:50] VITALS: BP 130/83; PULSE 86; RESP 17; TEMP 36.9; O2SAT 99
== END 2024-07-07 18:50 | disposition home or self-care (01) ==
PROVIDERS: Physician Assistant Medical; Emergency Provider Emergency Medicine; PCP Internal Medicine
DX: R55 Syncope and collapse (principal); K62.89 Other specified diseases of anus and rectum; E87.6 Hypokalemia; I10 Essential (primary) hypertension; R94.31 Abnormal electrocardiogram [ECG] [EKG]; Z79.899 Other long term (current) drug therapy; Z03.818 Encounter for observation for suspected exposure to other biological agents ruled out
CPT/HCPCS: 0241U; 71046; 74177; 80053; 81001; 83735; 84484; 85025; 93005; 99284; Q9967

== ENCOUNTER 2024-07-30 09:04 | Outpatient (AMB) | payer OTHER, SELFPAY ==
[2024-07-30 09:08] VITALS: BP 139/86; PULSE 87; BMI 29.7
--- NOTE | 2024-07-30 09:08 | MHC.OFFVIS ---
Vital Signs 07/30/24 09:08 Height 5 ft 7 in Weight 189 lb 9.561 oz BMI 29.7 BP 139/86 Blood Pressure Location Lt brachial Position Sitting Pulse 87 Intake Visit Reasons: 4 month follow up Intake Note: Wilfred presents to in office follow up of CIC and GERD. CC: Patient report mild discomfort from abdominal LLQ. Denies having other GI concerns today. 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: Yes Looping Machine Operator Name: [facility] winterizer Accompanied by: Self / Same As Patient Allergies amlodipine Allergy (Intermediate, Verified 07/30/24 09:13) leg edema carisoprodol [From SOMA] Allergy (Intermediate, Verified 07/30/24 09:13) twitching jennyfer inhibitors Adverse Reaction (Intermediate, Verified 07/30/24 09:13) cough, anxiety HPI HPI 4 month follow up: Details: Assessment & Plan (1) GERD (gastroesophageal reflux disease): Code(s): K21.9 - Gastro-esophageal reflux disease without esophagitis Category: Medical Qualifiers: Esophagitis presence: esophagitis presence not specified Qualified Code(s): K21.9 - Gastro-esophageal reflux disease without esophagitis (2) Chronic idiopathic constipation: Code(s): K59.04 - Chronic idiopathic constipation Category: Medical Plan SLOVENIAN #[id number] He is now doing well with the addition of the Bentyl and his LLQ pain has resolved. He also is doing better taking the Creon 2 tabs twice a day to promote compliance. He continues on his omeprazole with good control of his GERD. He is now satisfied with his GI regimen. I reviewed the PSA and urinalysis and told him he probably should follow-up with Urology if his urinary burning and frequency continues. ROV 4 months Medications: Refilled dicyclomine 20 mg PO QID PRN 120 tabs 1RF abdominal pain 30 days omeprazole 20 mg PO DAILY 30 caps 6RF 30 days simethicone after meals 180 mg PO QID 120 caps 6RF 30 days R14.0 - Abdominal distension (gaseous) docusate sodium (Colace) 100 mg PO DAILY 30 caps 6RF 30 days K59.01 - Slow transit constipation mljlhl-ywirxcwy-jdntcyu 24,000-76,000 -120,000 unit (Creon) administer with meals and/or snacks 2 caps PO BID 120 caps 6RF 30 : TODAY'S VISIT SLOVENIAN #Krystian Live He had a prostate biopsy at [facility] and it is a very low grade cancer. But they did not inform him to rest after the anesthesia and he went to work after and then fainted. He then presented to the ER but was find. He still has discomfort in the dorothy-anal area. He continues on his omeprazole, bentyl, creon and simethicone. His medications continue to work well, he is only having some intermittent LLQ discomfort that resolves quickly. We discuss the possible problem r/t potassium and bentyl, but he takes an OTC version and this should not be a big problem, but if he develops any abd pain this could be a consideration. Return office visit in 6 months PENDING SALE TO [facility] Medical History (Updated 07/30/24 @ 09:46 by SAMY Guerra) Physical exam Chest cold Colon cancer screening Thoracic compression fracture Pure hypercholesterolemia EMILY (generalized anxiety disorder) Mild recurrent major depression HSV (herpes simplex virus) anogenital infection Tubular adenoma of colon Depression with anxiety Neck pain Umbilical hernia Scoliosis Erectile dysfunction Onychomycosis Essential hypertension Hypothyroidism Obesity GERD (gastroesophageal reflux disease) Surgical History Status post excision of lipoma Hx of colonoscopy (~2009) Family History Father HTN (hypertension) Mother HTN (hypertension) Hypercholesteremia Family/Other HTN (hypertension) Thyroid disease Diabetes FH: mental illness Daughter Thyroid disease Son No problems noted. Brother Substance abuse Sister Breast cancer Social History Household Members: None Housing: Apartment Alcohol intake: current Alcohol intake frequency: holidays/special occasions only Alcohol type: beer Patient Tobacco Use Status: Never used Tobacco e-Cigarette/Vaping Use: Never Used Second Hand Smoke Exposure: No service: No Current occupational status: disabled Cognitive needs: No Hearing needs: No Vision needs: Yes (Glasses) Review of Systems Const Denies fatigue, Denies fever(s), Denies night sweats, Denies poor appetite and Denies weight loss Eyes Details: glasses Reports requires corrective lenses ENT Reports Normal hearing present, Denies dental pain, Denies dysphagia, Denies hearing loss, Denies mouth pain, Denies odynophagia, Denies throat swelling, Denies tongue swelling and Reports other (Dentition adequate) Card Reports no additional complaints Resp Reports no additional complaints GI Details: Denies abdominal pain, Denies melena, Reports bloating, Denies hematochezia, Denies constipation, Denies GI cramping, Denies dysphagia, Denies excessive flatus, Denies early satiety, Reports heartburn, Denies diarrhea, Reports loose stools, Denies nausea, Denies odynophagia, Denies vomiting and Denies hematemesis Reports testicular pain and Reports urinary frequency Skin/Breast Denies pruritus, Denies lesions, Denies rash and Denies jaundice Neuro Reports Normal hearing present and Denies Abnormal speech present Psych Reports anxiety Endo Denies fatigue Aller/Immun Denies throat swelling and Denies tongue swelling Physical Exam Vital Signs: Last Vital Signs Pulse 87 07/30/24 09:08 BP 139/86 07/30/24 09:08 BMI result Body Mass Index 29.7 Const General: cooperative, no acute distress, well developed and well groomed Nutritional Appearance: well nourished and overweight Orientation/consciousness: oriented to person, oriented to place and oriented to time Limitations: language barrier HEENT Head: Yes normocephalic and Yes atraumatic Eyes General: appearance normal, both eyes and all related structures Pupils: Equal, round and reactive pupils present Neck Neck: Yes normal visual inspection and Yes no lymphadenopathy Thyroid: Thyroid normal Resp Effort & Inspection: normal respiratory effort and able to speak in complete sentences Auscultation: clear to auscultation bilaterally Cardio Rate: regular rate Rhythm: regular rhythm Heart sounds: Normal, physiologic split S2 sound present Peripheral pulses: radial pulses present and posterior tibial pulses present GI Inspection: No distended and No Abdominal panniculus present Palpation (GI): Soft to palpation, nontender, no guarding, not rigid and No hepatosplenomegaly present Percussion: Yes normal to percussion Auscultation: normal bowel sounds Rectal Exam - Male: Yes deferred Skin General skin exam: no rashes or lesions noted, turgor normal, skin not dry, no jaundice, No spider nevi and no striae Rashes: no rashes Nails: normal Neuro General: oriented to person, oriented to place and oriented to time Cranial nerves: Yes Equal, round and reactive pupils present and Yes Normal hearing present Speech: No Abnormal speech present Extrem General: Yes normal to inspection, No clubbing, No cyanosis and No edema Psych Appearance: grossly normal and well kempt Mental Status: mental status grossly normal Speech and movement: Normal speech and movement present Affect: normal affect Attitude: cooperative Thought process: Normal thought process present and not confabulating Thought content: Normal thought content present Insight: Limited insight present (Psych) Judgement: Limited judgement present (Psych) Assessment & Plan Assessment & Plan (1) GERD (gastroesophageal reflux disease): Code(s): K21.9 - Gastro-esophageal reflux disease without esophagitis Category: Medical Qualifiers: Esophagitis presence: esophagitis presence not specified Qualified Code(s): K21.9 - Gastro-esophageal reflux disease without esophagitis (2) Tubulovillous adenoma: Comment: 07/2023=4 TA's repeat in 3 years; 03/2021=TVA 8 mm sessile and a TA as well Code(s): D36.9 - Benign neoplasm, unspecified site Category: Medical (3) Chronic idiopathic constipation: Code(s): K59.04 - Chronic idiopathic constipation Category: Medical (4) Abdominal bloating: Code(s): R14.0 - Abdominal distension (gaseous) Category: Medical Plan SLOVENIAN #Krystian Live He had a prostate biopsy at [facility] and it is a very low grade cancer. But they did not inform him to rest after the anesthesia and he went to work after and then fainted. He then presented to the ER but was find. He still has discomfort in the dorothy-anal area. He continues on his omeprazole, bentyl, creon and simethicone. His medications continue to work well, he is only having some intermittent LLQ discomfort that resolves quickly. We discuss the possible problem r/t potassium and bentyl, but he takes an OTC version and this should not be a big problem, but if he develops any abd pain this could be a consideration. He is worried about polyps and he wants to know if we can do the colonoscopy sooner. I explained to him that polyps are extremely slow growing and and since he just had the colonoscopy last year this would not give enough time for them to see if they grow back. Once he has a explanation he is satisfied in this eases his mind. Return office visit in 6 months Medications: Refilled mmbtim-igigilav-cvkgfcn 24,000-76,000 -120,000 unit (Creon) administer with meals and/or snacks 2 caps PO BID 120 caps 6RF 30 days K58.9 - Irritable bowel syndrome, unspecified omeprazole 20 mg PO DAILY 30 caps 6RF 30 days dicyclomine 20 mg PO QID PRN 120 tabs 6RF abdominal pain 30 days simethicone after meals 180 mg PO QID 120 caps 6RF 30 days R14.0 - Abdominal distension (gaseous) Coding Level of Care Code Est Pt Level 3 (28761) Diagnoses Gastroesophageal reflux disease, unspecified whether esophagitis present K21.9 Esophagitis presence: esophagitis presence not specified Tubulovillous adenoma D36.9 Chronic idiopathic constipation K59.04 Abdominal bloating R14.0
== END 2024-07-30 09:55 | disposition home or self-care (01) ==
PROVIDERS: PCP Internal Medicine; Visit Provider Nurse Practitioner
DX: K21.9 Gastro-esophageal reflux disease without esophagitis (principal); D36.9 Benign neoplasm, unspecified site; K59.04 Chronic idiopathic constipation; R14.0 Abdominal distension (gaseous)
CPT/HCPCS: 99213

== ENCOUNTER → 2024-07-30 09:04 | Outpatient (BNVA) | payer OTHER, SELFPAY | PROVIDERS: PCP Internal Medicine; Visit Provider Nurse Practitioner | DX: K21.9 Gastro-esophageal reflux disease without esophagitis (principal); K58.1 Irritable bowel syndrome with constipation; K59.04 Chronic idiopathic constipation; R10.32 Left lower quadrant pain; R14.0 Abdominal distension (gaseous); D36.9 Benign neoplasm, unspecified site | CPT/HCPCS: 99212 ==

== ENCOUNTER 2024-10-31 06:53 | Outpatient (REF) | payer OTHER, SELFPAY ==
[2024-10-31 08:05] LABS: Alanine Aminotransferase 26 U/L (0-40); Albumin Level 4.4 g/dL (3.5-5.0); Alkaline Phosphatase 94 U/L (39-117); Anion Gap 10 (12-20); Aspartate Amino Transferase 25 U/L (5-37); Bilirubin Total 0.7 mg/dL (0.0-1.0); Blood Urea Nitrogen 13 mg/dL (9-16); Calcium 9.2 mg/dL (8.4-10.2); Carbon Dioxide 30 mmol/L (22-29); Chloride 104 mmol/L (96-108); Cholesterol 199 mg/dL (<200); Estimated Glomerular Filt Rate 57; Glucose Fasting 93 mg/dL (60-99); HDL Cholesterol 42 mg/dL (>40); LDL Cholesterol Calculated 130 mg/dL (<100); Potassium 3.2 mmol/L (3.3-5.1); Sodium 141 mmol/L (135-145); Total Protein 7.2 g/dL (6.5-8.0); Triglycerides 137 mg/dL (<150)
[2024-10-31 08:57] LABS: Thyroid Stimulating Hormone 1.02 uIU/mL (0.32-4.0)
[2024-11-05 18:32] LABS: PSA, Ultra Sensitive 3.33 ng/mL
== END 2024-10-31 06:54 | disposition home or self-care (01) ==
LOC: HO.LAB 06:53
PROVIDERS: Nurse Practitioner; PCP Internal Medicine; Visit Provider Internal Medicine
DX: E78.5 Hyperlipidemia, unspecified (principal); I10 Essential (primary) hypertension; E03.8 Other specified hypothyroidism; E06.3 Autoimmune thyroiditis; Z12.5 Encounter for screening for malignant neoplasm of prostate
CPT/HCPCS: 36415; 80053; 80061; 84153; 84443

== ENCOUNTER 2024-11-06 15:59 | Outpatient (AMB) | payer OTHER, SELFPAY ==
--- NOTE | 2024-11-06 16:14 | MHC.PC.OV ---
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 Name: Cindy Llanes MD Information Interpreted: non-clinical & clinical Accompanied by: Self / Same As Patient Allergies amlodipine Allergy (Intermediate, Verified 11/06/24 16:31) leg edema carisoprodol [From SOMA] Allergy (Intermediate, Verified 11/06/24 16:31) twitching jennyfer inhibitors Adverse Reaction (Intermediate, Verified 11/06/24 16:31) cough, anxiety Medication List - Last Reconciled 11/06/24 by Cindy Llanes MD blood pressure monitor As directed calcium carbonate-vitamin D3 500 mg-10 mcg (400 unit) (Oyster Shell Calcium-Vitamin D3) 1 tab PO BID 90 days dicyclomine 20 mg PO QID PRN 30 days docusate sodium (Colace) 100 mg PO DAILY 30 days hydrochlorothiazide 25 mg PO DAILY 90 days levothyroxine 112 mcg PO DAILY 90 days ucorio-pjxerqti-qhhrefc 24,000-76,000 -120,000 unit (Creon) 2 caps PO BID 30 days loratadine 10 mg PO DAILY nabumetone 750 mg PO BID 90 days omeprazole 20 mg PO DAILY 30 days plecanatide (Trulance) 3 mg PO DAILY 30 days polyvinyl alcohol 1.4% 1 drp ophthalmic (eye) BID potassium chloride ER 10 mEq PO DAILY 10 days pravastatin 20 mg PO DAILY 90 days [recliner As directed] [Shower Chair As directed] simethicone 180 mg PO QID 30 days tadalafil 10 mg PO DAILY tizanidine 4 mg PO BID PRN 5 days Tobacco use date assessed: 11/06/24 Fall risk assessment: No Falls in past year Last assessed Fall Risk: 11/06/24 Dental Screening Dental Screen Date: 11/06/24 Did you have a dental visit in the last 12 months?: No Did you have a dental problem in the last 6 months where you did not have access to dental care?: No Was dental information given to patient?: Patient has dentist HPI HPI Comments History of Present Illness Details The patient is a 63-year-old male presenting with an ongoing dry cough that has persisted for two months. The cough began spontaneously and has not been alleviated by xsli-mgj-bcmissw medications such as Mucinex. The patient reports no improvement from these interventions and that residual symptoms of the cough continue. There are no associated symptoms such as fever, weight loss, or significant night sweats. The patient has known essential hypertension, for which he is currently on hydrochlorothiazide 25 mg daily. His blood pressure has been well-controlled with this regimen. He has hyperlipidemia and takes pravastatin 20 mg daily. Mild major depression and anxiety stable. Also has hypothyroidism with last TSH been normal. The patient previously underwent a colonoscopy in 2022, which revealed a tubular adenoma. Current management involves routine monitoring with no additional symptoms reported at this time. Additionally, the patient notes discomfort identified as dorsalgia, with periods of shoulder pain and potential arthritis as suggested in the conversation. The symptoms are described as intermittent and variable in intensity. Lastly, the patient has seasonal allergies managed with loratadine. The allergies seem to be exacerbated by environmental factors but are generally controlled with the current medication. [facility] Medical History Physical exam Chest cold Colon cancer screening Thoracic compression fracture Pure hypercholesterolemia EMILY (generalized anxiety disorder) Mild recurrent major depression HSV (herpes simplex virus) anogenital infection Tubular adenoma of colon Depression with anxiety Neck pain Umbilical hernia Scoliosis Erectile dysfunction Onychomycosis Essential hypertension Hypothyroidism Obesity GERD (gastroesophageal reflux disease) Surgical History Status post excision of lipoma Hx of colonoscopy (~2009) Family History Father HTN (hypertension) Mother HTN (hypertension) Hypercholesteremia Family/Other HTN (hypertension) Thyroid disease Diabetes FH: mental illness Daughter Thyroid disease Son No problems noted. Brother Substance abuse Sister Breast cancer Social History Household Members: None Housing: Apartment Alcohol intake: current Alcohol intake frequency: holidays/special occasions only Alcohol type: beer Patient Tobacco Use Status: Never used Tobacco e-Cigarette/Vaping Use: Never Used Second Hand Smoke Exposure: No service: No Current occupational status: disabled Cognitive needs: No Hearing needs: No Vision needs: Yes (Glasses) Questionnaire PHQ-9 Over the last 2 weeks, how often have you been bothered by any of the following problems? 1. Little interest or pleasure in doing things: not at all 2. Feeling down, depressed, or hopeless: not at all 3. Trouble falling or staying asleep, or sleeping too much: not at all 4. Feeling tired or having little energy: not at all 5. Poor appetite or overeating: not at all 6. Feeling bad about yourself - or that you are a failure or have let yourself or your family down: not at all 7. Trouble concentrating on things, such as reading the newspaper or watching television: not at all 8. Moving or speaking so slowly that other people could have noticed. Or the opposite - being so fidgety or restless that you have been moving around a lot more than usual: not at all 9. Thoughts that you would be better off or of hurting yourself in some way: not at all Total score: 0 Depression Screening Interpretation: Negative Depression Screening Done: Yes 18471 - PHQ-9 Billing: Yes Source: Developed by Drs. Billy Hagen, Melida Vasquez, Compa Mendez and colleagues, with an educational eze from [employer]. Thrive Questionnaire Date Thrive assessed: 11/06/24 I am a: Patient What is your living situation today?: I have a steady place to live Within the past 12 months, did the food you bought not last and you didn't have the money to get more?: I choose not to answer this question Within the past 12 months, did you worry whether your food would run out before you got money to buy more?: I choose not to answer this question Do you have trouble paying for medicines?: No Do you have trouble getting transportation to medical appointments?: No Do you have trouble paying your heating and electricity bill?: No Do you have trouble taking care of your child, family member or friend?: No Do you have trouble with day-to-day activities such as bathing, preparing meals, shopping, managing finances, etc.?: No Are you currently unemployed and looking for a job?: No Are you interested in more education?: No Please select the resources that you would like help with: None Currently or been in a relationship where the following occur: I choose not to answer THRIVE Score: 0 AUDIT C Alcohol Use Questionnaire (AUDIT-C) 1. How often do you have a drink containing alcohol?: Monthly or less 2. How many drinks containing alcohol do you have on a typical day when you are drinking?: 1 or 2 3. How often do you have six or more drinks on one occasion?: Never Total Score: 1 Score Reviewed/Action Taken: No EMILY-7 AMB Questionnaire EMILY-7 Date EMILY - 7 assessed: 11/06/24 Feeling nervous, anxious, or on edge: 1 = Several days Not being able to stop or control worryin = Not at all Worrying too much about different things: 1 = Several days Trouble relaxin = Not at all Being so restless that it is hard to sit still: 0 = Not at all Becoming easily annoyed or irritable: 0 = Not at all Feeling afraid as if something awful might happen: 0 = Not at all Total EMILY-7 score (0-4 normal; 5-9 mild; 10-14 moderate; 15-21 severe): 2 Source: Developed by Drs. Billy Hagen, Melida Vasquez, Compa Mendez and colleagues, with an educational eze from [employer]. EMILY-7 Assessment Billing EMILY-7 Assessment Tool: EMILY-7 Assessment 04321 Review of Systems Const All systems reviewed & are unremarkable except as noted in HPI and below Card Denies chest pain at rest, Denies chest pain with activity, Denies edema, Denies irregular heart rhythm, Denies claudication, Denies dyspnea, Denies dyspnea on exertion, Denies orthopnea, Denies paroxysmal nocturnal dyspnea and Denies slow heart rate Resp Denies cough, Denies dyspnea and Denies dyspnea on exertion Physical exam (Primary Care) Vital Signs: Last Vital Signs BP 136/80 11/06/24 16:18 BMI result Body Mass Index 29.9 Tobacco/Smoking Status: Tobacco use Status Tobacco use date assessed 11/06/24 11/06/24 16:21 Patient Tobacco Use Status Never used Tobacco 11/06/24 16:21 e-Cigarette/Vaping Use Never Used 11/06/24 16:21 PHQ-9: PHQ-9 Score PHQ-9: Total score 0 11/06/24 17:00 Depression Screening Interpretation: Negative Thrive Assessment: Date of Thrive Assessment Date Thrive assessed 11/06/24 11/06/24 16:21 Currently or been in a relationship where the following occur: I choose not to answer Resp Effort & Inspection: normal respiratory effort Auscultation: clear to auscultation bilaterally Cardio Jugular venous distension: no JVD Rate: regular rate Rhythm: regular rhythm Heart sounds: S1 normal heart sound present and S2 normal heart sound present Extrem General: Yes full ROM Office Procedures Flu Questionnaire Does the patient have a severe egg allergy?: No Immunizations Fluarix Triv [id number] (PF) 45 mcg (15 mcg x 3)/0.5 mL IM syringe Performing Provider: Cindy Llanes MD [facility] Documented (not given) by: SUNDAR Patel on 11/06/24 17:00 Reason Not Given: Patient Refused Coding Level of Care Code Est Pt Level 4 (33782) Complex EM visit Add On G2211 Diagnoses Pure hypercholesterolemia E78.00 Essential hypertension I10 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; E06.3 Hypothyroidism type: due to Mychal's thyroiditis Mild recurrent major depression F33.0 EMILY (generalized anxiety disorder) F41.1 Additional Codes EMILY-7 Assessment Billing - EMILY-7 Assessment Tool: EMILY-7 Assessment 02314 ([id number]) PHQ-9 - 57786 - PHQ-9 Billing: Yes ([id number]) Time Spent (min) 23 Assessment & Plan Assessment & Plan (1) Pure hypercholesterolemia: Code(s): E78.00 - Pure hypercholesterolemia, unspecified Category: Medical (2) Essential hypertension: Code(s): I10 - Essential (primary) hypertension Category: Medical (3) Hypothyroidism: Code(s): E03.9 - Hypothyroidism, unspecified Category: Medical Qualifiers: Hypothyroidism type: due to Mychal's thyroiditis Qualified Code(s): E03.8 - Other specified hypothyroidism; E06.3 - Autoimmune thyroiditis (4) Mild recurrent major depression: Code(s): F33.0 - Major depressive disorder, recurrent, mild Category: Medical (5) EMILY (generalized anxiety disorder): Code(s): F41.1 - Generalized anxiety disorder Category: Medical Plan - Continue current antihypertensive therapy with hydrochlorothiazide 25 mg. - Continue pravastatin 20 mg for hyperlipidemia management. - Monitor potassium levels; continue potassium supplementation as the patient currently takes. - Discuss the possibility of physical therapy or use of muscle rollers for management of torsalgia. - Consider further evaluation if cough does not resolve or worsens, possibly imaging or referral to a specialist if indicated. - Manage allergies with loratadine; reassess if symptoms persist or worsen. Patient was informed and verbally consented to the use of an ambient scribe for clinic note documentation during this visit. During this visit, I reviewed the current management of the patient's hypertension, hyperlipidemia, and allergies. We discussed the persistent cough and the interventions attempted thus far. I suggested continued monitoring and noted that if the condition persists, further diagnostic imaging or referral may be necessary. We reviewed the patient?s musculoskeletal symptoms, identified as torsalgia, and discussed non-pharmacologic interventions such as physical therapy as a management strategy. We agreed on the importance of monitoring his potassium levels due to the slight hypokalemia, emphasizing supplementation. Follow-up was scheduled as per routine care unless new symptoms develop or current symptoms worsen. Orders: Orders Influenza [id number] Immunization 11/06/24 Z23 - Encounter for immunization Medications: Changed From potassium chloride ER 10 mEq PO DAILY 10 days 10 caps 0RF To potassium chloride ER 10 mEq PO DAILY 30 caps 0RF 30 days Refilled loratadine 10 mg PO DAILY 30 tabs 0RF Patient Instructions: - Continue prescribed medications for blood pressure and cholesterol as discussed. - Take potassium supplements as directed. - Use loratadine as needed for allergy symptoms. - Engage in physical exercises, such as cycling, being mindful of muscle pain. - Monitor symptoms of cough and shoulder pain, and report any changes. - Attend routine follow-up appointments unless advised otherwise.
[2024-11-06 16:18] VITALS: BP 136/80; BMI 29.9
== END 2024-11-06 16:42 | disposition home or self-care (01) ==
PROVIDERS: PCP Internal Medicine; Visit Provider Internal Medicine
DX: Z23 Encounter for immunization (principal)

== ENCOUNTER → 2024-11-06 15:59 | Outpatient (BNVA) | payer OTHER, SELFPAY | PROVIDERS: PCP Internal Medicine; Visit Provider Internal Medicine | DX: E78.00 Pure hypercholesterolemia, unspecified (principal); I10 Essential (primary) hypertension; E03.8 Other specified hypothyroidism; E06.3 Autoimmune thyroiditis; F33.0 Major depressive disorder, recurrent, mild; F41.1 Generalized anxiety disorder | CPT/HCPCS: 90471; 96127; 99212 ==

== ENCOUNTER 2024-12-29 12:29 | Outpatient (AMB) | payer MEDICARE, SELFPAY ==
--- NOTE | 2024-12-29 12:56 | AM.OFFWIN_ITS ---
Intake Vital Signs 12/29/24 12:57 Weight 196 lb BP 140/80 H Blood Pressure Location Lt brachial Position Sitting Pulse 99 Pulse Source Pulse Oximeter Pulse Oximetry (%) 98 Oxygen Delivery Method Room Air Intake Visit Reasons: EP Back pain (needs interprer) Intake Note: Patient here for back pain that has been present for about 3 weeks. 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 History of Present Illness - The patient is a 64-year-old male pres enting with scapular pain and discomfort. - The patient reports the onset of left scapular pain roughly three weeks prior, without a specific injury occurring, but associates the pain with lifting heavy water jugs. - Previous attempts to manage the pain w ith Motrin and Tylenol have provided negligible relief. - Past medical interventions include a l ipoma removal from the same scapular region. - The patient is experiencing anxiety du e to the persistence of the pain over the weeks. Physical Exam General: Cooperative, healthy appearing, comfortable, no acute distress and well developed Orientation: Patient oriented x3 Limitations: Pain in the left scapula area, difficulty with certain movements Head: Normal to inspection Ears: Hearing grossly normal bilaterally Nose: Normal external nose present Face and sinus: Normal facial exam Eyes: Appearance normal, both eyes and all related structures Neck: Normal visual inspection and Yes full ROM Respiratory: Normal respiratory effort and able to speak in complete sentences. Skin: No rashes or lesions noted Neuro: Patient oriented x3 Extremities: Normal to inspection [facility] Medical History Physical exam Chest cold Colon cancer screening Thoracic compression fracture Pure hypercholesterolemia EMILY (generalized anxiety disorder) Mild recurrent major depression HSV (herpes simplex virus) anogenital infection Tubular adenoma of colon Depression with anxiety Neck pain Umbilical hernia Scoliosis Erectile dysfunction Onychomycosis Essential hypertension Hypothyroidism Obesity GERD (gastroesophageal reflux disease) Surgical History Status post excision of lipoma Hx of colonoscopy (~2009) Family History Father HTN (hypertension) Mother HTN (hypertension) Hypercholesteremia Family/Other HTN (hypertension) Thyroid disease Diabetes FH: mental illness Daughter Thyroid disease Son No problems noted. Brother Substance abuse Sister Breast cancer Social History Household Members: None Housing: Apartment Alcohol intake: current Alcohol intake frequency: holidays/special occasions only Alcohol type: beer Patient Tobacco Use Status: Never used Tobacco e-Cigarette/Vaping Use: Never Used Second Hand Smoke Exposure: No service: No Current occupational status: disabled Cognitive needs: No Hearing needs: No Vision needs: Yes (Glasses) Review of Systems Const All systems reviewed & are unremarkable except as noted in HPI and below Physical Exam Vital Signs: Last Vital Signs Pulse 99 12/29/24 12:57 BP 140/80 H 12/29/24 12:57 Pulse Ox 98 12/29/24 12:57 Oxygen Delivery Method Room Air 12/29/24 12:57 Back/Spine/Pelvis Cervical Spine: normal cervical lordosis, cervical ROM normal, No cervical muscular tenderness, No pain with cervical ROM and No Cervical spine tenderness Thoracic/Lumbar Spine: No thoracic spinal tenderness and No lumbar spinal tenderness Extrem Right upper extremity: shoulder/upper arm Details: normal to inspection, tenderness Location: of the scapula (medial area, rhomboid) and abnormal ROM Details: pain with active ROM (slight pain with full abduction) Details: in ABduction and pain with passive ROM Details: with ABduction; but not with extension, but not with flexion and but not with internal rotation; no swelling, no abrasions, no lacerations, no ecchymosis, no deformity and no unusual warmth Left upper extremity: normal to inspection and shoulder/upper arm Details: inspection abnormal and normal ROM; no tenderness and no swelling Assessment & Plan Assessment & Plan (1) Right shoulder pain: Code(s): M25.511 - Pain in right shoulder Qualifiers: Chronicity: acute Qualified Code(s): M25.511 - Pain in right shoulder Plan: Plan For the management of scapular pain likely due to muscle spasms, I will initiate a regimen with a muscle relaxant, which should help alleviate the muscular tension and associated discomfort. The patient is advised to primarily take this medication at night to conserve functionality during the day and should be cautious about alcohol consumption or operating machinery while under medication. If symptoms persist, I have arranged a referral for physical therapy to aid in alleviating and strengthening the affected area. Contact information will be provided to the patient to facilitate scheduling of physical therapy sessions, ensuring follow-up care is accessible. Patient was informed and verbally consented to the use of an ambient scribe for clinic note documentation during this visit. Orders: Orders PT Evaluation and Treatment Today M25.511 - Pain in right shoulder, M79.18 - Myalgia, other site Medications: New cyclobenzaprine 5 mg PO Q8H PRN 20 tabs 0RF Muscle Spasm Discontinued tizanidine Discontinued Reason: Patient no longer taking 4 mg PO BID 5 days PRN 10 tabs 0RF muscle spasticity Coding Level of Care Code Est Pt Level 4 (14112) Diagnoses Acute pain of right shoulder M25.511 Chronicity: acute
[2024-12-29 12:57] VITALS: BP 140/80; PULSE 99; O2SAT 98
--- OUTSIDE RECORDS SUMMARY | 2024-12-29 14:02 | XMS_ITS | Patient Health Record ---
Author Organization [facility] Address [address] [place] [address] Care Team Providers Care Water Superintendent Name Role Phone Kristofer TREADWELL, Cindy Primary Care Provider Unavail able Amari Fields Unavailable [phone] Reason For Referral No Information Medications Medication SIG (Take, Route, Frequency, Duration) Notes Start Date End Date Status Creon Active Docusate Sodium Acti ve hydroCHLOROthiazide Active Levothyroxine Sodium Active Omeprazole Active ASO Ankle/Foot Stablizing AFO As directe d Wear Daily for as needed 06/13/2023 Active Pravastatin Sodium A ctive Simethicone Active Trulance Active Social History Tobacco Use: Social History Observation Description Date Details (start date - stop date) Never Smoker NA - NA Tobacco Use/Smoking Question Answer Notes Are you a: nonsmoker Additional Findings: Tobacco Non-User Current no n-smoker Alcohol Screen Question Answer Notes Did you have a drink containing alcohol in the p ast year? Yes Points 0 Interpretation Negative Tobacco use other than smoking: Question Answer Notes Are you an other tobacco user? No Plan Of Treatment Pending Test Test Name Order Date X ray : Foot, left 3V 06/13/2023 Insurance Providers Payer Name Payer Address Payer Phone Subscriber Number Group Number Insured Name Patient Relationship to Insured Coverage Start Date Coverage End Date [facility] [employer] Claims [address] [place] [phone] [id number] Wilfred Bonilla Self - patient is the insured Medical (General) History Medical History History ICD Code Anxiety Arthritis Back,Hip,and Knee pain CAD (Cholesterol) Depression Fibromyalgia High blood pressure Reflux ( GERD) Sciatica thyroid Surgical History Surgery Date(Month/Year)
--- OUTSIDE RECORDS SUMMARY | 2024-12-29 14:02 | XMS_ITS | Clinical Summary ---
Author Organization [email or web address] Address [address] [place] [address] [address] [place] [address] Care Team Providers Care Manager Mortgage Name Role Phone Unavailable Primary Care Provider Unavailabl e Allergies Active Allergy Reactions Criticality Noted Date Comments Amlodipine Cough 09/04/2023 Other reaction(s): ankle swelling Carisoprodol Other 10/09/2017 Pt states that he Developed confusion when he took this medicine Medications HYDROCHLOROTHIA ZIDE PO Take 25 mg by mouth. 04/15/2021 Active levothyroxine (Synthroid, Levoxyl) 112 MCG tablet Take 112 mcg by mouth in the morning. 12/25/2022 Active loratadine (Claritin) 10 MG tablet Take 10 mg by mouth in the morning. 03/17/2022 Active omeprazole (PriLOSEC) [address] capsule Take 20 mg by mouth in the morning. 10/05/2022 Active Creon 15360-41444 units capsule TAKE 1 CAPSULE BY MOUTH FOUR TIMES DAILY WITH MEALS OR SNACKS 10/05/2022 Active pravastatin (Pravachol) 20 MG tablet Take 20 mg by mouth in the morning. 10/02/2022 Active docusate sodium (Colace) 100 MG capsule Take 100 mg by mouth in the morning. 10/05/2022 Active Simethicone Ultra Strength 180 MG capsule TAKE 1 CAPSULE BY MOUTH FOUR TIMES DAILY AFTER MEALS 10/05/2022 Active Active Problems Problem Noted Date Diagnosed Date Partially edentulous mandible 11/19/2023 Missing teeth, acquired 09/04/2023 Ill-fitting dentures 01/18/2023 Dental plaque 01/10/2023 Tooth sensitivity 01/10/2023 Gingival recession, generalized 01/10/2023 Malocclusion 12/15/2022 Social History Tobacco Use Types Packs/Day Years Used Date Smoking Tobacco: Never Passive Smoke Exposure: Never Smokeless Tobacco: Never Tobacco Cessation:Counseling Given: Not Answered Alcohol Use Standard Drinks/Week Comments Never 0 (1 standard drink = 0.6 oz pur e alcohol) Sex and Gender Information Value Date Recorded Sex Assigned at Male 08/21/2022 10:20 AM EDT Legal Sex Male 10:20 AM EDT Gender Identity Male 08/21/2022 10:20 AM EDT Sexual Orientation Don't know 08/21/2022 10 :20 AM EDT Last Filed Vital Signs Vital Sign Reading Time Taken Comments Blood Pressure 138/80 10/30/2023 8:50 AM EST Pulse 92 09/04/2023 10:07 AM EST Temperature - - Respiratory Rate - - Oxygen Saturation - - Inhaled Oxygen Concentration - - Weight - - Height - - Body Mass Index - - Plan of Treatment Health Maintenance Due Date Last Done Comments CT Colonography 1959 Colonoscopy 1959 Colorectal Cancer Screening 1959 Depression Screening 1959 FIT DNA/Cologuard 1959 FIT 1959 FOBT 1959 Lipid Panel 1959 SDOH Screening 1959 Sigmoidoscopy 1959 Alcohol/Substance Use Screening 1971 Hepatitis C Screening 1977 Pneumococcal Vaccine: 50+ Years (1 of 1 - PCV) 2009 Zoster Vaccines (1 of 2) 2009 Dental Oral Exam 03/05/2024 09/04/2023, 05/10/2022 Dental Prophylaxis 03/05/2024 09/04/2023, 01/10/2023 COVID-19 Vaccine ( season) 2024 02/02/2021, 01/05/2021 Influenza Vaccine (#1) 2024 , 08/10/2022, 01/01/2020, Additional history exists Dental X-Ray: Full Mouth 08/04/2024 08/03/2021 Dental X-Ray: Bitewings 09/05/2024 09/04/2023, 11/18 Tobacco Screening 11/29/2024 11/29/2023 DTaP/Tdap/Td Vaccines (2 - Td or Tdap) 08/10/2026 08/10/2016 RSV Patients and Patients Aged 60 years or older (1 - 1-dose 75+ series) 2034 HIB Vaccines Aged Out No longer eligi ble based on patient's age to complete this topic HPV Vaccines Aged Out No longer eligi ble based on patient's age to complete this topic Hepatitis A Vaccines Aged Out No long er eligible based on patient's age to complete this topic Hepatitis B Vaccines Aged Out No long er eligible based on patient's age to complete this topic IPV Vaccines Aged Out No longer eligi ble based on patient's age to complete this topic Meningococcal Vaccine Aged Out No trey puma eligible based on patient's age to complete this topic RSV under 20 months Aged Out No longe r eligible based on patient's age to complete this topic Rotavirus Vaccines Aged Out No longer eligible based on patient's age to complete this topic Procedures Procedure Name Priority Date/Time Associated Diagnosis Comments Full PROPHYLAXIS - ADULT Routine 023 10:00 AM EST Dental plaque BITEWINGS - 4 RADIOGRAPHIC IMAGES Routine 09/04/2023 10:00 AM EST Tooth sensitivity Malocclusion Dental plaque Gingival recession, generalized PERIODIC ORAL EVALUATION - ESTABLISHED PATIENT Routine 09/04/2023 10:00 AM EST from Last 3 Months or Most Recently Relevant to Health Maintenance Insurance [facility]
--- OUTSIDE RECORDS SUMMARY | 2024-12-29 14:02 | XMS_ITS | Encounter Summary ---
Author Organization [facility] Address [address] [place] [address] [address] [place] [id number] Care Team Providers Care District Medical Examiner Name Role Phone Unavailable Primary Care Provider Unavailabl e Encounter Details Date Type Department Care Team (Latest Contact Info) Description 08/03/2021 Abstract [facility] Dental, Provider, DDS Social History Tobacco Use Types Packs/Day Years Used Date Smoking Tobacco: Never Assessed Sex and Gender Information Value Date Recorded Sex Assigned at Male 08/21/2022 10:20 AM EDT Legal Sex Male 10:20 AM EDT Gender Identity Male 08/21/2022 10:20 AM EDT Sexual Orientation Don't know 08/21/2022 10 :20 AM EDT documented as of this encounter Plan of Treatment Not on file documented as of this encounter Visit Diagnoses Not on filedocumented in this encounter
--- OUTSIDE RECORDS SUMMARY | 2024-12-29 14:02 | XMS_ITS | Encounter Summary ---
Author Organization [facility] Address [address] [place] [address] [address] [place] [id number] Care Team Providers Care Computer Aided Design Drafter Name Role Phone Unavailable Primary Care Provider Unavailabl e Encounter Details Date Type Department Care Team (Latest Contact Info) Description 04/04/2019 Abstract [facility] Dental, Provider, DDS Social History [...]
== END 2024-12-29 13:34 | disposition home or self-care (01) ==
PROVIDERS: PCP Internal Medicine; Visit Provider Physician Assistant
DX: M25.511 Pain in right shoulder (principal)

== ENCOUNTER → 2024-12-29 12:29 | Outpatient (BNVA) | payer MEDICARE, SELFPAY | PROVIDERS: PCP Internal Medicine; Visit Provider Physician Assistant | DX: M25.511 Pain in right shoulder (principal) | CPT/HCPCS: 99212 ==

== ENCOUNTER 2025-01-28 09:01 | Outpatient (AMB) | payer MEDICARE, SELFPAY ==
[2025-01-28 09:12] VITALS: BP 126/89; BMI 30.9
--- NOTE | 2025-01-28 09:12 | MHC.OFFVIS ---
Vital Signs 01/28/25 09:12 Height 5 ft 7 in Weight 197 lb BMI 30.9 BP 126/89 Blood Pressure Location Lt brachial Position Sitting Intake Visit Reasons: 6 mo f/u Abdominal bloating Intake Note: Patient in office today in follow up of abdominal bloating. CC: Patient c/o abdominal bloating. He states that he took a natural medication this morning to go to the bathroom and is having abdominal cramps and diarrhea. Production Officer Required: Yes Accompanied by: Self / Same As Patient Allergies amlodipine Allergy (Intermediate, Verified 01/28/25 09:18) leg edema carisoprodol [From [facility]] Allergy (Intermediate, Verified 01/28/25 09:18) twitching jennyfer inhibitors Adverse Reaction (Intermediate, Verified 01/28/25 09:18) cough, anxiety HPI HPI 6 mo f/u Abdominal bloating: Details: Assessment & Plan (1) GERD (gastroesophageal reflux disease): Code(s): K21.9 - Gastro-esophageal reflux disease without esophagitis Category: Medical Qualifiers: Esophagitis presence: esophagitis presence not specified Qualified Code(s): K21.9 - Gastro-esophageal reflux disease without esophagitis (2) Tubulovillous adenoma: Comment: 07/2023=4 TA's repeat in 3 years; 03/2021=TVA 8 mm sessile and a TA as well Code(s): D36.9 - Benign neoplasm, unspecified site Category: Medical (3) Chronic idiopathic constipation: Code(s): K59.04 - Chronic idiopathic constipation Category: Medical (4) Abdominal bloating: Code(s): R14.0 - Abdominal distension (gaseous) Category: Medical Plan [place] He had a prostate biopsy at [facility] and it is a very low grade cancer. But they did not inform him to rest after the anesthesia and he went to work after and then fainted. He then presented to the ER but was find. He still has discomfort in the dorothy-anal area. He continues on his omeprazole, bentyl, creon and simethicone. His medications continue to work well, he is only having some intermittent LLQ discomfort that resolves quickly. We discuss the possible problem r/t potassium and bentyl, but he takes an OTC version and this should not be a big problem, but if he develops any abd pain this could be a consideration. He is worried about polyps and he wants to know if we can do the colonoscopy sooner. I explained to him that polyps are extremely slow growing and and since he just had the colonoscopy last year this would not give enough time for them to see if they grow back. Once he has a explanation he is satisfied in this eases his mind. Return office visit in 6 months Medications: Refilled [id number] 24,000-76,000 -120,000 unit (Creon) administer with meals and/or snacks 2 caps PO BID 120 caps 6RF 30 days K58.9 - Irritable bowel syndrome, unspecified omeprazole 20 mg PO DAILY 30 caps 6RF 30 days dicyclomine 20 mg PO QID PRN 120 tabs 6RF abdominal pain 30 days simethicone after meals 180 mg PO QID 120 caps 6RF 30 days R14.0 - Abdominal distension (gaseous) TODAY'S VISIT CIT[place] He continues on his omeprazole, bentyl, creon and simethicone. He started taking Alor supplement because he was feeling bloated and not moving his bowels as well. Also having early satiety not eating as much beause its all sitting on top of the last meal. The aloe gave him diarrhea. With discussion, he is not taking the creon 2 tabs bid but qid and forgetting some. He also was taking the Trulance at night and it was getting me up in the middle of the night. Also forgetting simethicone as did not know it was for gas. I think if he changes his regimen it will solve many problems. I print all instructions in Swazi. David kumari [facility] Medical History Physical exam Chest cold Colon cancer screening Thoracic compression fracture Pure hypercholesterolemia EMILY (generalized anxiety disorder) Mild recurrent major depression HSV (herpes simplex virus) anogenital infection Tubular adenoma of colon Depression with anxiety Neck pain Umbilical hernia Scoliosis Erectile dysfunction Onychomycosis Essential hypertension Hypothyroidism Obesity GERD (gastroesophageal reflux disease) Surgical History Status post excision of lipoma Hx of colonoscopy (~2009) Family History Father HTN (hypertension) Mother HTN (hypertension) Hypercholesteremia Family/Other HTN (hypertension) Thyroid disease Diabetes FH: mental illness Daughter Thyroid disease Son No problems noted. Brother Substance abuse Sister Breast cancer Social History Household Members: None Housing: Apartment Alcohol intake: current Alcohol intake frequency: holidays/special occasions only Alcohol type: beer Patient Tobacco Use Status: Never used Tobacco e-Cigarette/Vaping Use: Never Used Second Hand Smoke Exposure: No service: No Current occupational status: disabled Cognitive needs: No Hearing needs: No Vision needs: Yes (Glasses) Review of Systems Const Denies fatigue, Denies fever(s), Denies night sweats, Denies poor appetite and Denies weight loss Eyes Details: glasses Reports requires corrective lenses ENT Reports Normal hearing present, Denies dental pain, Denies dysphagia, Denies hearing loss, Denies mouth pain, Denies odynophagia, Denies throat swelling, Denies tongue swelling and Reports other (Dentition adequate) Card Reports no additional complaints Resp Reports no additional complaints GI Details: Reports abdominal pain, Denies melena, Reports bloating, Denies hematochezia, Reports constipation, Denies GI cramping, Denies dysphagia, Denies excessive flatus, Reports early satiety, Reports heartburn, Denies diarrhea, Denies nausea, Denies odynophagia, Denies vomiting and Denies hematemesis Skin/Breast Denies pruritus, Denies lesions, Denies rash and Denies jaundice Neuro Reports Normal hearing present and Denies Abnormal speech present Endo Denies fatigue Aller/Immun Denies throat swelling and Denies tongue swelling Physical Exam Vital Signs: Last Vital Signs BP 126/89 01/28/25 09:12 BMI result Body Mass Index 30.9 Const General: cooperative, no acute distress, well developed and well groomed Nutritional Appearance: well nourished and obese Orientation/consciousness: oriented to person, oriented to place and oriented to time Limitations: language barrier and other limitations HEENT Head: Yes normocephalic and Yes atraumatic Eyes General: appearance normal, both eyes and all related structures Pupils: Equal, round and reactive pupils present Neck Neck: Yes normal visual inspection and Yes no lymphadenopathy Thyroid: Thyroid normal Resp Effort & Inspection: normal respiratory effort and able to speak in complete sentences Auscultation: clear to auscultation bilaterally Cardio Rate: regular rate Rhythm: regular rhythm Heart sounds: Normal, physiologic split S2 sound present Peripheral pulses: radial pulses present and posterior tibial pulses present GI Inspection: Yes distended and No Abdominal panniculus present Palpation (GI): Soft to palpation, nontender, no guarding, not rigid, No hepatosplenomegaly present and Hernia present umbilical Percussion: Yes normal to percussion Auscultation: normal bowel sounds Rectal Exam - Male: Yes deferred Skin General skin exam: no rashes or lesions noted, turgor normal, skin not dry, no jaundice, No spider nevi and no striae Rashes: no rashes Nails: normal Neuro General: oriented to person, oriented to place and oriented to time Cranial nerves: Yes Equal, round and reactive pupils present and Yes Normal hearing present Speech: No Abnormal speech present Extrem General: Yes normal to inspection, No clubbing, No cyanosis and No edema Psych Appearance: grossly normal and well kempt Mental Status: mental status grossly normal Speech and movement: Normal speech and movement present Affect: normal affect Attitude: cooperative Thought process: Normal thought process present and not confabulating Thought content: Normal thought content present Insight: Limited insight present (Psych) Judgement: Limited judgement present (Psych) Assessment & Plan Assessment & Plan (1) GERD (gastroesophageal reflux disease): Code(s): K21.9 - Gastro-esophageal reflux disease without esophagitis Category: Medical Qualifiers: Esophagitis presence: esophagitis presence not specified Qualified Code(s): K21.9 - Gastro-esophageal reflux disease without esophagitis (2) Chronic idiopathic constipation: Code(s): K59.04 - Chronic idiopathic constipation Category: Medical (3) Abdominal bloating: Code(s): R14.0 - Abdominal distension (gaseous) Category: Medical (4) LLQ pain: Code(s): R10.32 - Left lower quadrant pain Category: Medical Plan [place] He continues on his omeprazole, bentyl, creon and simethicone. He started taking Alor supplement because he was feeling bloated and not moving his bowels as well. Also having early satiety not eating as much beause its all sitting on top of the last meal. The aloe gave him diarrhea. With discussion, he is not taking the creon 2 tabs bid but qid and forgetting some. He also was taking the Trulance at night and it was getting me up in the middle of the night. Also forgetting simethicone as did not know it was for gas. I think if he changes his regimen it will solve many problems. I print all instructions in Swazi. RoV next avaialb. Medications: Refilled dicyclomine 20 mg PO QID PRN 120 tabs 6RF abdominal pain 30 days docusate sodium (Colace) 100 mg PO DAILY 30 caps 6RF 30 days K59.01 - Slow transit constipation omeprazole 20 mg PO DAILY 30 caps 6RF 30 days plecanatide (Trulance) 3 mg PO DAILY 30 tabs 6RF 30 days K59.04 - Chronic idiopathic constipation lphqcm-nptjbnvg-rjsyvxr 24,000-76,000 -120,000 unit (Creon) administer with meals and/or snacks 2 caps PO BID 120 caps 6RF 30 days K58.9 - Irritable bowel syndrome, unspecified simethicone after meals 180 mg PO QID 120 caps 6RF 30 days R14.0 - Abdominal distension (gaseous) Patient Instructions: Colon,Wilfred? Por favor, ajuste la forma de safia joceline medicamentos de la siguiente manera: 1. [place] Trulance a primera hora de la ma?savannah con un vaso lleno de agua. 2. [place] Creon 2 comprimidos dos veces al d?a en lugar de cuatro. 3. [place] simeticona con m?s frecuencia para la hinchaz?n, ya que ayuda a expulsar los gases. Coding Level of Care Code Est Pt Level 3 (22457) Diagnoses Gastroesophageal reflux disease, unspecified whether esophagitis present K21.9 Esophagitis presence: esophagitis presence not specified Chronic idiopathic constipation K59.04 Abdominal bloating R14.0 LLQ pain R10.32
--- OUTSIDE RECORDS SUMMARY | 2025-01-28 09:31 | XMS_ITS | Encounter Summary ---
Author Organization [facility] Address [address] [place] [address] [address] [place] [address] Care Team Providers Care Childcare Provider Name Role Phone Unavailable Primary Care Provider Unavailabl e Encounter Details Date Type Department Care Team (Latest Contact Info) Description 04/04/2019 Abstract [facility] Dental, Provider, DDS Social History Tobacco Use Types Packs/Day Years Used Date Smoking Tobacco: Never Assessed Sex and Gender Information Value Date Recorded Sex Assigned at Male 08/21/2022 10:20 AM EDT Legal Sex Male 10:20 AM EDT Gender Identity Male 08/21/2022 10:20 AM EDT Sexual Orientation Don't know 08/21/2022 10 :20 AM EDT documented as of this encounter Plan of Treatment Upcoming Encounters Date Type Department Care Team (Late st Contact Info) Description 03/12/2025 9:00 AM EDT Office Visit [facility] [address] [place] [address] Abbie Gonsalez [address] [place] [address] documented as of this encounter Visit Diagnoses Not on filedocumented in this encounter
--- OUTSIDE RECORDS SUMMARY | 2025-01-28 09:31 | XMS_ITS | Patient Health Record ---
Author Organization [facility] Address [address] [place] [address] Care Team Providers Care Decontamination Worker Name Role Phone Kristofer TREADWELL, Cindy Primary Care Provider Unavail able Amari Fields Unavailable [phone] Reason For Referral No Information Medications Medication [...] Insured Coverage Start Date Coverage End Date [facility] SCO Claims [address] [place] [phone] [id number] Wilfred Bonilla Self - patient is the insured Medical (General) History Medical History History ICD Code Anxiety Arthritis Back,Hip,and Knee pain CAD (Cholesterol) Depression Fibromyalgia High blood pressure Reflux ( GERD) Sciatica thyroid Surgical History Surgery Date(Month/Year)
--- OUTSIDE RECORDS SUMMARY | 2025-01-28 09:31 | XMS_ITS | Encounter Summary ---
Author Organization [facility] Address [address] [place] [address] [address] [place] [address] Care Team Providers Care Fashion Patternmaker Name Role Phone Unavailable Primary Care Provider Unavailabl e Encounter Details Date Type Department Care Team (Latest Contact Info) Description 08/03/2021 Abstract [facility] CONVERSION[facility] Dental, Provider, DDS Social History [...] Description 03/12/2025 9:00 AM EDT Office Visit [facility]ULT [facility] [address] [place] [address] Abbie Gonsalez [address] [place] [address] documented as of this encounter Visit Diagnoses Not on filedocumented in this encounter
--- OUTSIDE RECORDS SUMMARY | 2025-01-28 09:31 | XMS_ITS | Clinical Summary ---
Author Organization [facility] Address [address] [place] [address] [address] [place] [address] Care Team Providers Care School Psychometrist Name Role Phone Unavailable Primary Care Provider [...] mouth in the morning. 10/05/2022 Active Creon 85875-76784 units capsule TAKE 1 CAPSULE BY MOUTH [...] Mass Index - - Plan of Treatment Upcoming Encounters Date Type Department Care Team (Late st Contact Info) Description 03/12/2025 9:00 AM EDT Office Visit [facility] [address] [place] [address] Sunshine, Abbie [address] [place] [address] Health Maintenance Due Date Last Done Comments [...] 2024 02/02/2021, 01/05/2021 Influenza Vaccine (#1) 2024 3, 08/10/2022, 01/01/2020, Additional history exists Dental X-Ray: [...] Recently Relevant to Health Maintenance Insurance DENTAL - [facility]
== END 2025-01-28 09:47 | disposition home or self-care (01) ==
LOC: HO.HGI 09:02
PROVIDERS: PCP Internal Medicine; Visit Provider Nurse Practitioner
DX: K21.9 Gastro-esophageal reflux disease without esophagitis (principal); K59.04 Chronic idiopathic constipation; R14.0 Abdominal distension (gaseous); R10.32 Left lower quadrant pain
CPT/HCPCS: 99213

== ENCOUNTER → 2025-01-28 09:01 | Outpatient (BNVA) | payer MEDICARE, SELFPAY | PROVIDERS: PCP Internal Medicine; Visit Provider Nurse Practitioner | DX: K21.9 Gastro-esophageal reflux disease without esophagitis (principal); K59.04 Chronic idiopathic constipation; R14.0 Abdominal distension (gaseous); R10.32 Left lower quadrant pain | CPT/HCPCS: 99212 ==

== ENCOUNTER 2025-06-02 06:28 | Outpatient (REF) | payer OTHER, SELFPAY ==
--- OUTSIDE RECORDS SUMMARY | 2025-06-02 06:31 | XMS_ITS | Patient Health Record ---
Author Organization [facility] Address [address] [place] [address] Care Team Providers Care Substance Abuse Clinician Name Role Phone Kristofer TREADWELL, Cindy Primary Care Provider Unavail able Amari Fields Unavailable [phone] Reason For Referral No Information Medications Medication SIG (Take, Route, Frequency, Duration) Notes Start Date End Date Status Creon Active Docusate Sodium Acti ve hydroCHLOROthiazide Active Levothyroxine Sodium Active Omeprazole Active ASO Ankle/Foot Stablizing AFO As directe d Wear Daily; Duration: as needed 06/13/2023 Active Pravastatin Sodium A [...] Insured Coverage Start Date Coverage End Date [facility] SCO Claims [address] [place] [phone] [id number] Wilfred Bonilla Self - patient is the insured Medical (General) History Medical History History ICD Code Anxiety Arthritis Back,Hip,and Knee pain CAD (Cholesterol) Depression Fibromyalgia High blood pressure Reflux ( GERD) Sciatica thyroid Surgical History Surgery Date(Month/Year)
--- OUTSIDE RECORDS SUMMARY | 2025-06-02 06:31 | XMS_ITS | Clinical Summary ---
Author Organization [facility] Address [address] [place] [address] [address] [place] [address] Care Team Providers Care Chefs Name Role Phone Unavailable Primary Care Provider [...] mouth in the morning. 10/05/2022 Active Creon 35104-82871 units capsule TAKE 1 CAPSULE BY MOUTH [...] 01/10/2023 Gingival recession, generalized 01/10/2023 Malocclusion 12/15/2022 Encounters Date Type Department Care Team Description 03/12/2025 9:00 AM EDT Office Visit [facility] [address] [place] [address] Abbie Gonsalez Gingival recession, generalized (Primary Dx); Malocclusion; Tooth sensitivity; Missing teeth, acquired; Dental plaque from Last 3 Months Social History Tobacco Use Types Packs/Day Years [...] Sign Reading Time Taken Comments Blood Pressure 132/76 03/12/2025 9:09 AM EDT Pulse 92 09/04/2023 10:07 AM EST Temperature - - Respiratory Rate - - Oxygen Saturation - - Inhaled Oxygen Concentration - - Weight - - Height - - Body Mass Index - - Plan of Treatment Upcoming Encounters Date Type Department Care Team (Late st Contact Info) Description 09/24/2025 8:00 AM EST Office Visit [facility] [address] [place] [address] Abbie Gonsalez [address] [place] [address] Health Maintenance Due Date Last Done Comments CT Colonography 1959 Colonoscopy 1959 Colorectal Cancer Screening 1959 Depression Screening 1959 FIT DNA/Cologuard 1959 FIT 1959 FOBT 1959 Lipid Panel 1959 SDOH Screening 1959 Sigmoidoscopy 1959 Alcohol/Substance Use Screening 1971 Hepatitis C Screening 1977 Pneumococcal Vaccine: 50+ Years (1 of 1 - PCV) 2009 Zoster Vaccines (1 of 2) 2009 COVID-19 Vaccine ( - ) 06/22/2024 02/02/2021, 01/05/2021 Influenza Vaccine (#1) 2025 , 08/10/2022, 01/01/2020, Additional history exists Dental Oral Exam 09/13/2025 03/12/2025, , 05/10/2022 Dental Prophylaxis 09/13/2025 03/12/2025, 1 11/04/2022, 01/10/2023 Tobacco Screening 03/12/2026 03/12/2025 Dental X-Ray: Bitewings 03/13/2026 03/12/20, 09/04/2023, 11/18/2019 DTaP/Tdap/Td Vaccines (2 - Td or Tdap) 08/10/2026 08/10/2016 Dental X-Ray: Full Mouth 03/13/2028 03/12/2025, 07/22 RSV Patients and Patients Aged 60 years [...] patient's age to complete this topic Meningococcal B Vaccine Aged Out No l onger eligible based on patient's age to complete [...] Procedure Name Priority Date/Time Associated Diagnosis Comments PERIODIC ORAL EVALUATION - ESTABLISHED PATIENT Routine 03/12/2025 9:00 AM EDT CASE PRESENTATION, DETAILED AND EXTENSIVE TREATMENT PLANNING Routine 03/12/2025 9:00 AM EDT Gingival recession, generalized Malocclusion Tooth sensitivity Missing teeth, acquired Dental plaque ORAL HYGIENE INSTRUCTIONS Routine 03/12/2025 9:00 AM EDT Gingival recession, generalized Malocclusion Tooth sensitivity Missing teeth, acquired Dental plaque INTRAORAL - COMPLETE SERIES OF RADIOGRAPHIC IMAGES Routine 03/12/2025 9:00 AM EDT Gingival recession, generalized Malocclusion Tooth sensitivity Missing teeth, acquired Dental plaque PROPHYLAXIS - ADULT Routine 03/12/2025 9 :00 AM EDT Dental plaque 8 M COMPOSITE FILLING Routine 03/12/2025 12:00 AM EDT 9 M COMPOSITE FILLING Routine 03/12/2025 12:00 AM EDT from Last 3 Months Insurance [facility] STAND ADULT
[2025-06-02 08:34] LABS: Alanine Aminotransferase 26 U/L (0-40); Albumin Level 4.7 g/dL (3.5-5.0); Alkaline Phosphatase 89 U/L (39-117); Anion Gap 13 (12-20); Aspartate Amino Transferase 28 U/L (5-37); Blood Urea Nitrogen 19 mg/dL (9-16); Calcium 9.1 mg/dL (8.4-10.2); Carbon Dioxide 28 mmol/L (22-29); Chloride 103 mmol/L (96-108); Cholesterol 220 mg/dL (<200); Estimated Glomerular Filt Rate > 60; HDL Cholesterol 43 mg/dL (>40); Potassium 3.2 mmol/L (3.3-5.1); Sodium 141 mmol/L (135-145); Total Protein 7.0 g/dL (6.5-8.0); Triglycerides 111 mg/dL (<150)
[2025-06-02 08:46] LABS: PSA,Total (Free>4and<10) 4.28 ng/mL (0.00-4.00)
[2025-06-02 08:50] LABS: Thyroid Stimulating Hormone 2.01 uIU/mL (0.32-4.0)
[2025-06-02 09:06] LABS: HIV Num 1 0.05 S/CO (0.00-0.99)
[2025-06-03 11:54] LABS: Free Prostate Spec Ag 0.8 ng/mL; Percent Free Prostate Spec Ag 21 % (calc) (>25)
== END 2025-06-02 06:29 | disposition home or self-care (01) ==
LOC: HO.LAB 06:28
PROVIDERS: PCP Internal Medicine; Visit Provider Internal Medicine
DX: Z11.4 Encounter for screening for human immunodeficiency virus [HIV] (principal); E06.3 Autoimmune thyroiditis; R35.1 Nocturia; E03.8 Other specified hypothyroidism; E55.9 Vitamin D deficiency, unspecified; E78.5 Hyperlipidemia, unspecified; E78.00 Pure hypercholesterolemia, unspecified; Z12.5 Encounter for screening for malignant neoplasm of prostate
CPT/HCPCS: 36415; 80053; 80061; 82306; 84153; 84154; 84443; 87389

== ENCOUNTER 2025-06-25 13:16 | Outpatient (AMB) | payer MEDICARE, MEDICAID, SELFPAY ==
--- NOTE | 2025-06-25 13:19 | MHC.OFFVIS ---
Vital Signs 06/25/25 13:23 Height 5 ft 7 in Weight 187 lb 6.287 oz BMI 29.3 BP 140/90 H Blood Pressure Location Lt brachial Position Sitting Pulse 88 Pulse Source Pulse Oximeter Pulse Oximetry (%) 98 Oxygen Delivery Method Room Air Intake Visit Reasons: OA Intake Note: Patient presents today for an OA follow up. Cementing Machine Operator Name: [email or web address] [id number] Information Interpreted: non-clinical & clinical Accompanied by: Self / Same As Patient Allergies amlodipine Allergy (Intermediate, Verified 06/25/25 13:22) leg edema carisoprodol (From SOMA) Allergy (Intermediate, Verified 06/25/25 13:22) twitching jennyfer inhibitors Adverse Reaction (Intermediate, Verified 06/25/25 13:22) cough, anxiety Medication List - Last Reconciled 06/25/25 by Can Gustafson MD atorvastatin (Lipitor) 20 mg PO BEDTIME 90 days blood pressure monitor As directed calcium carbonate-vitamin D3 500 mg-10 mcg (400 unit) (Oyster Shell Calcium-Vitamin D3) 1 tab PO BID 90 days dicyclomine 20 mg PO QID PRN 30 days docusate sodium (Colace) 100 mg PO DAILY 30 days hydrochlorothiazide 25 mg PO DAILY 90 days levothyroxine 112 mcg PO DAILY 90 days [id number]-kfwokjs 24,000-76,000 -120,000 unit (Creon) 2 caps PO BID 30 days loratadine 10 mg PO DAILY omeprazole 20 mg PO DAILY 30 days plecanatide (Trulance) 3 mg PO DAILY 30 days polyvinyl alcohol 1.4% 1 drp ophthalmic (eye) BID potassium chloride ER 10 mEq PO DAILY 30 days [recliner As directed] [Shower Chair As directed] simethicone 180 mg PO QID 30 days HPI HPI OA: Details: Last visit 05/2023. Polish video translator and interpreter used. He has pain in upper and lower back for 2 weeks with left shoulder and left leg parenthesis. Parenthesis is worse when lying down on left shoulder. He carried 40lb bag prior to onset of pain. Activity aggrevates pain. Warm patches help temporarily. Tylenol 1300mg is ineffective. [facility] Medical History Physical exam Chest cold Colon cancer screening Thoracic compression fracture Pure hypercholesterolemia EMILY (generalized anxiety disorder) Mild recurrent major depression HSV (herpes simplex virus) anogenital infection Tubular adenoma of colon Depression with anxiety Neck pain Umbilical hernia Scoliosis Erectile dysfunction Onychomycosis Essential hypertension Hypothyroidism Obesity GERD (gastroesophageal reflux disease) Surgical History Status post excision of lipoma Hx of colonoscopy (~2009) Family History Father HTN (hypertension) Mother HTN (hypertension) Hypercholesteremia Family/Other HTN (hypertension) Thyroid disease Diabetes FH: mental illness Daughter Thyroid disease Son No problems noted. Brother Substance abuse Sister Breast cancer Social History Household Members: None Housing: Apartment Alcohol intake: current Alcohol intake frequency: holidays/special occasions only Alcohol type: beer Patient Tobacco Use Status: Never used Tobacco e-Cigarette/Vaping Use: Never Used Second Hand Smoke Exposure: No service: No Current occupational status: disabled Cognitive needs: No Hearing needs: No Vision needs: Yes (Glasses) Physical Exam Vital Signs: Last Vital Signs Pulse 88 06/25/25 13:23 BP 140/90 H 06/25/25 13:23 Pulse Ox 98 06/25/25 13:23 Oxygen Delivery Method Room Air 06/25/25 13:23 BMI result Body Mass Index 29.3 Const Other: General: Comfortable Skin: No lesions seen MSK: Tender to palpate right paraspinal muscles of upper thoracic spine with involvement of right trapezius. No spinous process tenderness of cervical or thoracic spine. He has localized tenderness to lower lumbar spinous process, paraspinal muscles and flank. Normal range of motion of cervical spine. Normal range of motion of upper extremity but left abduction is painful. Limited full lumbar flexion. No synovitis. Results Reviewed Results Reviewed: Ordering Physician: Ben Meyers MD Date of Service: 06/14/23 Procedure(s): XR thoracic spine 3V Accession Number(s): [id number] cc: Ben Meyers MD~ EXAMINATION: XR THORACIC SPINE CLINICAL INFORMATION: Dorsalgia. COMPARISON: Radiographs dated 08/13/2017. TECHNIQUE: Frontal, lateral and swimmer's views of the thoracic spine were obtained. FINDINGS: Vertebral body heights are normal. There is a slight thoracolumbar levoscoliosis. There is mild disc space narrowing at T6-T7. The remaining disc spaces are relatively well-maintained. A mild T11 anterior wedge compression fracture is again seen. No acute fracture or spondylolisthesis is seen. There is multi-level thoracolumbar spondylosis, most pronounced at T7-T8 and T8-T9, where it is severe. The posterior elements are intact. The paravertebral soft tissues are unremarkable. XR/XR thoracic spine 3V IMPRESSION: 1. There is mild degenerative disc disease at T6-T7. 2. A mild T11 anterior wedge compression fractures redemonstrated. 3. There is multi-level thoracolumbar spondylosis, most pronounced at T7-T8 and T8-T9. 4. There is a slight thoracolumbar levoscoliosis Ordering Physician: Zafar Arroyo MD Date of Service: 01/18/21 Procedure(s): XR lumbar spine 2-3V Accession Number(s): [id number] cc: Zafar Arroyo MD~ EXAMINATION: XR LUMBOSACRAL SPINE CLINICAL INFORMATION: Low back pain COMPARISON: Previous x-ray July 2019 TECHNIQUE: Three views of the lumbosacral spine. FINDINGS: Bone alignment is normal. No fracture or dislocation is seen. There is multilevel degenerative spondylosis and degenerative disc disease from L1-L2 to L4-L5. There is lower lumbar spine facet arthritis. XR/XR lumbar spine 2-3V IMPRESSION: Degenerative changes. Assessment & Plan Assessment & Plan (1) Lumbar back pain with radiculopathy affecting left lower extremity: Comment: Two week history on background of lumbar spondylosis. He has myofascial strain contributing to his lower back pain. With recent onset of left lower extremity radicular symptoms, he may have nerve impingement contributing. We discussed conservative management. Code(s): M54.16 - Radiculopathy, lumbar region Category: Medical Plan: Apply lidocaine patch to area Continue to apply heat to back L-spine x-ray ordered to evaluate for progression of osteoarthritis Start Baclofen 5 mg q.h.s. PRN pain. Avoid driving after taking muscle relaxer. Discussed side effects of long-term muscle relaxer use PT ordered Return to clinic in 3 months (2) Strain of right trapezius muscle: Comment: Two week history. Code(s): S46.811A - Strain of other muscles, fascia and tendons at shoulder and upper arm level, right arm, initial encounter Category: Medical Plan: PT ordered with myofascial release and TENs unit trial Lidocaine patch ordered Baclofen 5 mg q.h.s. PRN pain ordered Return to clinic in 3 months (3) Left knee pain: Comment: No clinical signs of inflammatory arthritis. Rheumatology history: Joint fluid from the left knee 12/2015 WBC 3930 suggestive of inflammatory process without crystals. Patient followed with Ortho for left knee OA, last injection February 2022. His left knee pain and joint swelling have been well controlled. Rheumatoid factor, CCP and HLA B27 are negative. Code(s): M25.562 - Pain in left knee Category: Medical Plan: Monitor clinically Orders: Orders PT Evaluation and Treatment Today M47.816 - Spondylosis without myelopathy or radiculopathy, lumbar region, M54.42 - Lumbago with sciatica, left side, S46.811A - Strain of other muscles, fascia and tendons at shoulder and upper arm level, right arm, initial encounter XR lumbar spine 2-3V Today M54.16 - Radiculopathy, lumbar region Medications: New lidocaine 5% leave on most painful area for up to 12 hrs 1 patch topical DAILY 30 ea 2RF baclofen Polish label 5 mg PO BEDTIME PRN 30 tabs 1RF muscle spasm Coding Level of Care Code Est Pt Level 4 (20819) Complex EM visit Add On G2211 Diagnoses Lumbar back pain with radiculopathy affecting left lower extremity M54.16 Strain of right trapezius muscle S46.811A Left knee pain M25.562
[2025-06-25 13:23] VITALS: BP 140/90; PULSE 88; O2SAT 98; BMI 29.3
--- OUTSIDE RECORDS SUMMARY | 2025-06-25 14:32 | XMS_ITS | Encounter Summary ---
Author Organization [employer] Address [address] [facility] [address] [place] [address] Care Team Providers Care Digital Asset Specialist Name Role Phone Unavailable Primary Care Provider Unavailabl e Encounter Details Date Type Department Care Team (Latest Contact Info) Description 08/03/2021 Abstract [facility] CONVERSIONS Dental, Provider, DDS Social History [...] Description 09/24/2025 8:00 AM EST Office Visit [facility] ADULT DENTAL [address] [place] [address] Abbie Gonsalez [address] [place] [address] documented as of this encounter Visit Diagnoses Not on filedocumented in this encounter
--- OUTSIDE RECORDS SUMMARY | 2025-06-25 14:32 | XMS_ITS | Patient Health Record ---
Author Organization [facility] Address [address] [place] [address] Care Team Providers Care Central Supply Assistant Name Role Phone Kristofer TREADWELL, Cindy Primary Care Provider Unavail able Amari Fields Unavailable [phone] Reason For Referral No Information Medications Medication [...] Insured Coverage Start Date Coverage End Date [facility] [employer] Claims [address] [place] [address] [id number] Wilfred Bonilla Self - patient is the insured Medical (General) History Medical History History ICD Code Anxiety Arthritis Back,Hip,and Knee pain CAD (Cholesterol) Depression Fibromyalgia High blood pressure Reflux ( GERD) Sciatica thyroid Surgical History Surgery Date(Month/Year)
--- OUTSIDE RECORDS SUMMARY | 2025-06-25 14:32 | XMS_ITS | Clinical Summary ---
Author Organization [employer] Address [address] [place] [address] [address] [place] [address] Care Team Providers Care Wellness Ambassador Name Role Phone Unavailable Primary Care Provider [...] mouth in the morning. 10/05/2022 Active Creon 39589-61109 units capsule TAKE 1 CAPSULE BY MOUTH [...] Description 09/24/2025 8:00 AM EST Office Visit [facility] ADULT DENTAL [address] [place] [address] Sunshine, Abbie [address] [place] [address] Health Maintenance Due Date Last Done Comments CT Colonography 1959 Colonoscopy 1959 Colorectal Cancer Screening 1959 Depression Screening 1959 FIT DNA/Cologuard 1959 FIT 1959 FOBT 1959 Lipid Panel 1959 SDOH Screening 1959 Sigmoidoscopy 1959 Alcohol/Substance Use Screening 1971 Hepatitis C Screening 1977 Pneumococcal Vaccine: 50+ Years (1 of 1 - PCV) 2009 Zoster Vaccines (1 of 2) 2009 COVID-19 Vaccine (3 - 2024- season) 2025 02/02/2021, 01/05/2021 Influenza Vaccine (#1) 2025 , [...] Procedure Name Priority Date/Time Associated Diagnosis Comments PROPHYLAXIS - ADULT Routine 03/12/2025 9 :00 AM EDT Dental plaque INTRAORAL - COMPLETE SERIES OF RADIOGRAPHIC IMAGES Routine 03/12/2025 9:00 AM EDT Gingival recession, generalized Malocclusion Tooth sensitivity Missing teeth, acquired Dental plaque PERIODIC ORAL EVALUATION - ESTABLISHED PATIENT Routine 03/12/2025 9:00 AM EDT from Last 3 Months or Most Recently Relevant to Health Maintenance Insurance [facility] ST[place] [address] [place] [id number] [place] [address] [id number] [place] [id number]
--- OUTSIDE RECORDS SUMMARY | 2025-06-25 14:32 | XMS_ITS | Encounter Summary ---
Author Organization [employer] Address [address] [facility] [address]t [place] [address] Care Team Providers Care Registered Nurse Ambulatory Name Role Phone Unavailable Primary Care Provider Unavailabl e Encounter Details Date Type Department Care Team (Latest Contact Info) Description 04/04/2019 Abstract [facility] CONVERSIONS Dental, Provider, DDS Social History [...] Description 09/24/2025 8:00 AM EST Office Visit [facility] ADULT DENTAL [address] [place] [address] Abbie Gonsalez [address] [place] [address] documented as of this encounter Visit Diagnoses Not on filedocumented in this encounter
== END 2025-06-25 14:08 | disposition home or self-care (01) ==
LOC: HO.RHES 13:17
PROVIDERS: PCP Internal Medicine; Visit Provider Internal Medicine Rheumatology
DX: M54.16 Radiculopathy, lumbar region (principal); S46.811A Strain of other muscles, fascia and tendons at shoulder and upper arm level, right arm, initial encounter; M25.562 Pain in left knee
CPT/HCPCS: 99214; G2211

== ENCOUNTER → 2025-06-25 13:16 | Outpatient (BNVA) | payer OTHER, SELFPAY | PROVIDERS: PCP Internal Medicine; Visit Provider Internal Medicine Rheumatology | DX: M54.16 Radiculopathy, lumbar region (principal); S46.811A Strain of other muscles, fascia and tendons at shoulder and upper arm level, right arm, initial encounter; M25.562 Pain in left knee; X58.XXXA Exposure to other specified factors, initial encounter; Y93.9 Activity, unspecified; Y92.9 Unspecified place or not applicable; Y99.9 Unspecified external cause status | CPT/HCPCS: 99212 ==

== ENCOUNTER 2025-06-29 07:24 | Outpatient (REF) | payer OTHER, SELFPAY ==
--- NOTE | ~2025-06-29 | XR_ITS ---
CLINICAL HISTORY: M54.16 - Radiculopathy, lumbar region --- Additional Notes or Special Instructions: ?progression of OA Exam: AP, lateral, and spot lateral views of the lumbar spine. Comparison: None provided. Findings: There is straightening of the normal lumbar lordosis. 1-2 mm of retrolisthesis is seen at L2-3. Bony alignment is otherwise anatomic. No acute fracture. Moderate disc space narrowing is seen at all levels throughout the lumbar spine with both anterior and posterior osteophytic ridging. [id number] facet joint degenerative change. Multilevel discogenic sclerosis. Impression: Degenerative changes as above. This document has been electronically signed by: Wali Marie MD on 06/30/2025 09:26:36
--- OUTSIDE RECORDS SUMMARY | 2025-06-29 07:27 | XMS_ITS | Patient Health Record ---
Author Organization [facility] Address [address] [place] [address] Care Team Providers Care Mounter Hand Name Role Phone Kristofer TREADWELL, Cindy Primary Care Provider Unavail able Amari Fields Unavailable [phone] Reason For Referral No Information Medications Medication [...] [facility] [address] [place] [address] [id number] Wilfred Bonilla Self - patient is the insured Medical (General) History Medical History History ICD Code Anxiety Arthritis Back,Hip,and Knee pain CAD (Cholesterol) Depression Fibromyalgia High blood pressure Reflux ( GERD) Sciatica thyroid Surgical History Surgery Date(Month/Year)
--- OUTSIDE RECORDS SUMMARY | 2025-06-29 07:27 | XMS_ITS | Clinical Summary ---
Author Organization [employer] Address [address] [place] [address] [address] [place] [address] Care Team Providers Care Expedition Supervisor Name Role Phone Unavailable Primary Care Provider [...] mouth in the morning. 10/05/2022 Active Creon 40747-17964 units capsule TAKE 1 CAPSULE BY MOUTH [...] Description 09/24/2025 8:00 AM EST Office Visit [facility] ADULT DENTAL [address] [place] [address] Sunshine, Abbie [address] [place] [address] Health Maintenance Due Date Last Done Comments [...] Maintenance Insurance [facility] [address] [place] [address] [id number] [address] [place] [address] [id number] [address] [place] [id number]
--- OUTSIDE RECORDS SUMMARY | 2025-06-29 07:27 | XMS_ITS | Encounter Summary ---
Author Organization [employer] Address [address] [facility] [address]t [place] [address] Care Team Providers Care Slipman Name Role Phone Unavailable Primary Care Provider Unavailabl e Encounter Details Date Type Department Care Team (Latest Contact Info) Description 08/03/2021 Abstract [facility] CONVERSIONS Dental, Provider, DDS Social History Tobacco [...] Office Visit [facility] ADULT DENTAL [address] [place] [address] Abbie Gonsalez [address] [place] [address] documented as of this encounter Visit Diagnoses Not on filedocumented in this encounter
--- OUTSIDE RECORDS SUMMARY | 2025-06-29 07:27 | XMS_ITS | Encounter Summary ---
Author Organization [employer] Address [address] [facility] [address] [place] [address] Care Team Providers Care Sand Mill Operator Name Role Phone Unavailable Primary Care Provider [...] Description 09/24/2025 8:00 AM EST Office Visit [facility] ADULT DENTAL [address] [place] [address] Abbie Gonsalez [address] [place] [address] documented as of this encounter Visit Diagnoses Not on filedocumented in this encounter
== END 2025-06-29 07:25 | disposition home or self-care (01) ==
LOC: HO.XRAY 07:24
PROVIDERS: PCP Internal Medicine; Visit Provider Internal Medicine Rheumatology
DX: M54.16 Radiculopathy, lumbar region (principal)
CPT/HCPCS: 72100

== ENCOUNTER → 2025-06-29 07:33 | Outpatient (BNV) | payer OTHER, SELFPAY | PROVIDERS: PCP Internal Medicine; Visit Provider Radiology Diagnostic Radiology | DX: M51.361 Other intervertebral disc degeneration, lumbar region with lower extremity pain only (principal) | CPT/HCPCS: 72100 ==

== ENCOUNTER 2025-07-15 10:03 | Outpatient (AMB) | payer MEDICARE, MEDICAID, SELFPAY ==
--- NOTE | 2025-07-15 10:16 | A.OFFVIS_ITS ---
Intake Vital Signs 07/15/25 10:18 Height 5 ft 7 in Weight 186 lb 8 oz BMI 29.2 BP 136/80 Blood Pressure Location Lt brachial Position Sitting Pulse 92 Pulse Source Pulse Oximeter Temp 97.1 F Temp Source Temporal Artery Scan Pulse Oximetry (%) 97 Oxygen Delivery Method Room Air Intake Visit Reasons: AWV Intake Note: Patient is here for an Annual Wellness Visit. Tornado Chaser Required: Yes Tornado Chaser Language: [place] Aide Services: Tornado Chaser Offered & Declined Allied Health Instructor: Allied Health Instructor offered & declined Accompanied by: Self / Same As Patient Allergies amlodipine Allergy (Intermediate, Verified 07/15/25 10:30) leg edema carisoprodol (From [facility]) Allergy (Intermediate, Verified 07/15/25 10:30) twitching jennyfer inhibitors Adverse Reaction (Intermediate, Verified 07/15/25 10:30) cough, anxiety Medication List - Last Reconciled 07/15/25 by Cindy Llanes MD atorvastatin (Lipitor) 20 mg PO BEDTIME 90 days baclofen 5 mg PO BEDTIME PRN blood pressure monitor As directed calcium carbonate-vitamin D3 500 mg-10 mcg (400 unit) (Oyster Shell Calcium- Vitamin D3) 1 tab PO BID 90 days dicyclomine 20 mg PO QID PRN 30 days docusate sodium (Colace) 100 mg PO DAILY 30 days hydrochlorothiazide 25 mg PO DAILY 90 days levothyroxine 112 mcg PO DAILY 90 days lidocaine 5% 1 patch topical DAILY kpcsmy-wdmtqwvv-abwjxsn 24,000-76,000 -120,000 unit (Creon) 2 caps PO BID 30 days loratadine 10 mg PO DAILY omeprazole 20 mg PO DAILY 30 days plecanatide (Trulance) 3 mg PO DAILY 30 days polyvinyl alcohol 1.4% 1 drp ophthalmic (eye) BID potassium chloride ER 10 mEq PO DAILY 30 days [recliner As directed] [Shower Chair As directed] simethicone 180 mg PO QID 30 days HPI HPI Comments History of Present Illness Details Ppp handed to patient. [place] of care reviewed and updated. The patient is a 64-year-old male presenting for a Medicare wellness exam and management of chronic conditions. The patient has a history of mild recurrent major depression, with a PHQ-9 score of 6 indicating mild depression. He reports feeling slightly depressed with occasional anxiety but does not see a counselor for these issues. The patient has hyperlipidemia, with a recent cholesterol level of 220 mg/dL. He is currently taking atorvastatin 20 mg, which will be increased due to elevated cholesterol levels. The patient has a history of tubular adenoma, as identified in a colonoscopy performed in 2022. He is scheduled for a follow-up colonoscopy in three years. The patient has an elevated prostate-specific antigen (PSA) level of 4.2, which is slightly above the normal range. There is no indication of current follow-up for prostate health. The patient has a potassium deficiency, with a recent level of 3.2 mmol/L. A repeat potassium test is planned to determine if supplementation is necessary. Preventative care measures include a pneumococcal vaccination, which the patient is eligible for due to his age. [facility] Medical History Physical exam Chest cold Colon cancer screening Thoracic compression fracture Pure hypercholesterolemia EMILY (generalized anxiety disorder) Mild recurrent major depression HSV (herpes simplex virus) anogenital infection Tubular adenoma of colon Depression with anxiety Neck pain Umbilical hernia Scoliosis Erectile dysfunction Onychomycosis Essential hypertension Hypothyroidism Obesity GERD (gastroesophageal reflux disease) Surgical History Status post excision of lipoma Hx of colonoscopy (~2009) Family History Father HTN (hypertension) Mother HTN (hypertension) Hypercholesteremia Family/Other HTN (hypertension) Thyroid disease Diabetes FH: mental illness Daughter Thyroid disease Son No problems noted. Brother Substance abuse Sister Breast cancer Social History (Updated 07/15/25 @ 10:39 by Cindy Llanes MD) Household Members: None Housing: Apartment Alcohol intake: current Alcohol intake frequency: a few times a month Alcohol type: beer Patient Tobacco Use Status: Never used Tobacco e-Cigarette/Vaping Use: Never Used Second Hand Smoke Exposure: No service: No Current occupational status: disabled Cognitive needs: No Hearing needs: No Vision needs: Yes (Glasses) Questionnaire Medicare Wellness Checkup What [age] What gender do you identify with?: male During the past 4 weeks, how much have you been bothered by emotional problems such as feeling anxious, depressed, irritable, sad or downhearted, and blue?: slightly During the past 4 weeks, has your physical & emotional health limited your social activities with family, friends, neighbors, or groups?: slightly During the past 4 weeks, how much bodily pain have you generally had?: severe pain During the past 4 weeks, was someone available to help you if you needed & wanted help?: yes, a little During the past 4 weeks, what was the hardest physical activity you could do for at least 2 minutes?: heavy Can you get to places out of walking distance without help? (For eg., can you travel alone on buses, taxis or drive your car?): No Can you go shopping for groceries or clothes without someone's help?: No Can you prepare your own meals?: No Can you do your housework without help?: No Because of any health problems, do you need the help of another person with your personal care needs such as eating, bathing, dressing or getting around the house?: Yes Can you handle your own money without help?: Yes During the past 4 weeks, how would you rate your health in general?: fair During the past 4 weeks how have things been going for you?: good & bad parts about equal Are you having difficulties driving your car?: sometimes Do you always fasten your seat belt when you are in a car?: yes, usually Have you fallen 2 or more times in the past year?: No Are you afraid of falling?: Yes Are you a smoker?: no During the past 4 weeks, how many drinks of wine, beer, or other alcoholic beverages did you have?: 2-5 drinks per week Do you exercise for about 20 minutes 3 or more times a week?: yes, some of the time Have you been given information to help with the following?: no: Hazards in your house that might hurt you? How often do you have trouble taking medicines the way you have been told to take them?: sometimes I take medicine as prescribed How confident are you that you can control & manage most of your health problems?: not very confident What is your race?: or origin or descent Mini Mental State Exam (MMSE) Orientation What is the (year) (season) (date) (day) (month)?: year, season, date, day and month Where are we (state) (county) (town or city) (hospital) (floor)?: state, county, town or city, hospital/clinic and floor Registration Name of 3 unrelated objects clearly and slowly, then ask patient to repeat all 3 of them. (1st repeat determines score. Make sure they can repeat all three): object 1, object 2 and object 3 Attention & Calculation (CHOOSE ONE) Spell WORLD backwards (DLROW): 5 letters Recall Ask patient to repeat the 3 items from question #3.: object 1, object 2 and object 3 Language Show patient a wristwatch & ask what it is. Repeat for pencil.: watch and pencil Ask the patient to repeat the phrase 'No ifs, ands, or buts' after you.: correct Ask the patient to 'take a piece of paper with their right hand' 'fold paper in half' 'place paper on floor': take paper in right hand, fold paper in half and place paper on floor Print the sentence 'CLOSE YOUR EYES' on a piece. If patient actually closes eyes then score.: followed written direction Give patient a blank piece of paper & ask to write a sentence. Score if it contains a noun & verb.: sentence contains subject and verb Score Score: 29 Activity of Daily Living Bathing - sponge bath, tub bath or shower: receives help in bathing only one body part (such as back or leg) Dressing - getting clothes from closets & drawers, including inner/outer garments & fasteners.: gets clothes & gets dressed without help, except for help tying shoes Toileting - going to the 'toilet room' for urine/bowel elimination & cleaning self/arranging clothes: goes to toilet room, cleans self, arranges clothes without help Transfer: moves in & out of bed and chair without help (may use support object) Continence: controls urination/bowel movements completely by self Feeding: feeds self without help Total Score: 0 Information obtained from: patient Using telephone: independent Traveling: independent Shopping: independent Preparing meals: independent Housework: needs assistance Taking medicine: independent Managing money: independent PHQ-9 Over the last 2 weeks, how often have you been bothered by any of the following problems? 1. Little interest or pleasure in doing things: several days 2. Feeling down, depressed, or hopeless: not at all 3. Trouble falling or staying asleep, or sleeping too much: more than half the days 4. Feeling tired or having little energy: several days 5. Poor appetite or overeating: not at all 6. Feeling bad about yourself - or that you are a failure or have let yourself or your family down: not at all 7. Trouble concentrating on things, such as reading the newspaper or watching television: several days 8. Moving or speaking so slowly that other people could have noticed. Or the opposite - being so fidgety or restless that you have been moving around a lot more than usual: several days 9. Thoughts that you would be better off or of hurting yourself in some way: not at all Total score: 6 Depression Screening Interpretation: Positive Depression Screening Follow-up: Existing condition, In treatment, Community Mental Health Worker F/U and Follow- up Visit Requested Depression Screening Done: Yes 42923 - PHQ-9 Billing: Yes Source: Developed by Drs. Billy Hagen, Melida Vasquez, Compa Mendez and colleagues, with an educational eze from [email or web address]. Thrive Questionnaire Date Thrive assessed: 11/06/24 I am a: Patient What is your living situation today?: I have a steady place to live Within the past 12 months, did the food you bought not last and you didn't have the money to get more?: I choose not to answer this question Within the past 12 months, did you worry whether your food would run out before you got money to buy more?: I choose not to answer this question Do you have trouble paying for medicines?: No Do you have trouble getting transportation to medical appointments?: No Do you have trouble paying your heating and electricity bill?: No Do you have trouble taking care of your child, family member or friend?: No Do you have trouble with day-to-day activities such as bathing, preparing meals, shopping, managing finances, etc.?: Yes Are you currently unemployed and looking for a job?: Yes Are you interested in more education?: No Please select the resources that you would like help with: None Currently or been in a relationship where the following occur: I choose not to answer THRIVE Score: 0 EMILY-7 AMB Questionnaire EMILY-7 Date EMILY - 7 assessed: 11/06/24 Feeling nervous, anxious, or on edge: 1 = Several days Not being able to stop or control worryin = Several days Worrying too much about different things: 0 = Not at all Trouble relaxin = Several days Being so restless that it is hard to sit still: 1 = Several days Becoming easily annoyed or irritable: 0 = Not at all Feeling afraid as if something awful might happen: 1 = Several days Total EMILY-7 score (0-4 normal; 5-9 mild; 10-14 moderate; 15-21 severe): 5 Source: Developed by Drs. Billy Hagen, Melida Vasquez, Compa Mendez and colleagues, with an educational eze from [email or web address]. EMILY-7 Assessment Billing EMILY-7 Assessment Tool: EMILY-7 Assessment 95696 AUDIT C Alcohol Use Questionnaire (AUDIT-C) 1. How often do you have a drink containing alcohol?: 2-3 times a week 2. How many drinks containing alcohol do you have on a typical day when you are drinking?: 3 or 4 3. How often do you have six or more drinks on one occasion?: Weekly Total Score: 7 Review of Systems Const All systems reviewed & are unremarkable except as noted in HPI and below Card Denies chest pain at rest, Denies chest pain with activity, Denies edema, Denies irregular heart rhythm, Denies claudication, Denies dyspnea, Denies dyspnea on exertion, Denies orthopnea, Denies paroxysmal nocturnal dyspnea and Denies slow heart rate Resp Denies cough, Denies dyspnea and Denies dyspnea on exertion Neuro Denies confusion Psych Denies confusion Physical Exam Vital Signs: Last Vital Signs Temp 97.1 F 07/15/25 10:18 Pulse 92 07/15/25 10:18 BP 136/80 07/15/25 10:18 Pulse Ox 97 07/15/25 10:18 Oxygen Delivery Method Room Air 07/15/25 10:18 BMI result Body Mass Index 29.2 Const General: No confusion Orientation/consciousness: patient oriented x3 and No confusion Resp Effort & Inspection: normal respiratory effort Auscultation: clear to auscultation bilaterally Cardio Jugular venous distension: no JVD Rate: regular rate Rhythm: regular rhythm Heart sounds: S1 normal heart sound present and S2 normal heart sound present Neuro General: patient oriented x3, no focal motor deficits and No confusion Romberg Test: Negative Extrem General: Yes full ROM Immunizations pneumoc 20-pauline conj-dip cr(PF) 0.5 mL IM syringe Performing Provider: Cindy Llanes MD [facility] Administered by: Elle Gomez CMA on 07/15/25 10:52 Dose Route Admin Location Dispensed Lot Number Expiration Date NDC Filter Tank Operator 0.5 mL IM Left Deltoid 0.5 mL [id number] 06/22/26 [employer] Total Dispensed Waste 0.5 mL 0 % VIS Given Date VIS Provided VIS Publication Date 07/15/25 Single Vaccine 25 Eligibility Eligibility Date Funding Source Not [facility] Eligible 07/15/25 Private Assessment & Plan Assessment & Plan (1) Encounter for Medicare annual wellness exam: Code(s): Z00.00 - Encounter for general adult medical examination without abnormal findings (2) Mild recurrent major depression: Code(s): F33.0 - Major depressive disorder, recurrent, mild (3) Hypokalemia: Code(s): E87.6 - Hypokalemia Plan Plan Patient was informed and verbally consented to the use of an ambient scribe for clinic note documentation during this visit. 1. medicare wellness exam The patient is eligible for the pneumococcal vaccination due to age, and it is recommended to be administered.The patient has a history of tubular adenoma identified in a 2022 colonoscopy, with a follow-up scheduled in three years. 2. Mild Recurrent Major Depression The patient has mild recurrent major depression with a PHQ-9 score of 6. No current counseling is being pursued, and the patient reports occasional anxiety. 3. Hyperlipidemia The patient's cholesterol level is 220 mg/dL, and atorvastatin dosage will be increased to manage hyperlipidemia. 4. Elevated Prostate-Specific Antigen (Psa) The patient's PSA level is slightly elevated at 4.2 ng/mL, with no current follow-up plan discussed. 5. Potassium Deficiency The patient's potassium level is low at 3.2 mmol/L, and a repeat test is planned to assess the need for supplementation. Orders: Orders Comprehensive [place]. Panel Fast 5 Months I10 - Essential (primary) hypertension Pneumococcal 20 Immunization Today Z23 - Encounter for immunization Potassium Today E87.6 - Hypokalemia Lipid Panel 5 Months E78.5 - Hyperlipidemia, unspecified Thyroid Stimulating Hormone 5 Months E03.8 - Other specified hypothyroidism, E06.3 - Autoimmune thyroiditis Medications: New atorvastatin (Lipitor) 40 mg PO BEDTIME 90 tabs 1RF 90 days Discontinued atorvastatin (Lipitor) Discontinued Reason: Patient Completed Course 20 mg PO BEDTIME 90 days 90 tabs 1RF Quality Reporting (2019) Depression/Bipolar (159/160/161/177) PHQ-9: Total score: 6 Coding Level of Care Code Medicare First (G0438) Est Pt Level 3 (55647) Diagnoses Encounter for Medicare annual wellness exam Z00.00 Mild recurrent major depression F33.0 Hypokalemia E87.6 Additional Codes EMILY-7 Assessment Billing - EMILY-7 Assessment Tool: EMILY-7 Assessment 40055 ([id number]) PHQ-9 - 75272 - PHQ-9 Billing: Yes ([id number]) Time Spent (min) 36 Advance Care Planning Advance Care Planning discussion: Exists, not on file Date of discussion: 07/15/25 Forms completed: Health Care Proxy Actual minutes spent: 2
[2025-07-15 10:18] VITALS: BP 136/80; PULSE 92; TEMP 36.2; O2SAT 97; BMI 29.2
--- OUTSIDE RECORDS SUMMARY | 2025-07-15 12:17 | XMS_ITS | Patient Health Record ---
Author Organization [facility] Address [address] [address] Care Team Providers Care Cut Off Worker Name Role Phone Kristofer TREADWELL, Cindy Primary Care Provider Unavail able Amrai Fields Unavailable [phone] Reason For Referral No Information Medications Medication [...] Insured Coverage Start Date Coverage End Date [facility] [employer] Claims [address] [place] [id number] Wilfred Bonilla Self - patient is the insured Medical (General) History Medical History History ICD Code Anxiety Arthritis Back,Hip,and Knee pain CAD (Cholesterol) Depression Fibromyalgia High blood pressure Reflux ( GERD) Sciatica thyroid Surgical History Surgery Date(Month/Year)
--- OUTSIDE RECORDS SUMMARY | 2025-07-15 12:17 | XMS_ITS | Encounter Summary ---
Author Organization [email or web address] Address [address] [facility] [address] [place] [address] Care Team Providers Care District Agent Name Role Phone Unavailable Primary Care Provider Unavailabl e Encounter Details Date Type Department Care Team (Latest Contact Info) Description 04/04/2019 Abstract [facility] CONVERSIONS Dental, Provider, DDS Social History Tobacco [...] Description 09/24/2025 8:00 AM EST Office Visit [facility] ADULT DENTAL [address] [place] [address] Abbie Gonsalez [address] [place] [address] documented as of this encounter Visit Diagnoses Not on filedocumented in this encounter
--- OUTSIDE RECORDS SUMMARY | 2025-07-15 12:17 | XMS_ITS | Encounter Summary ---
Author Organization [employer] Address [address] [address] [place] [address] Care Team Providers Care Automotive Exhaust Emissions Technician Name Role Phone Unavailable Primary Care Provider Unavailabl e Encounter Details Date Type Department Care Team (Latest Contact Info) Description 08/03/2021 Abstract [facility] CONVERSIONS Dental, Provider, DDS Social History Tobacco [...] Description 09/24/2025 8:00 AM EST Office Visit [facility] ADULT DENTAL [address] [place] [address] Abbie Gonsalez [address] [place] [address] documented as of this encounter Visit Diagnoses Not on filedocumented in this encounter
--- OUTSIDE RECORDS SUMMARY | 2025-07-15 12:17 | XMS_ITS | Clinical Summary ---
Author Organization [employer] Address [address] [place] [address] [address] [place] [address] Care Team Providers Care News Photographer Name Role Phone Unavailable Primary Care Provider [...] mouth in the morning. 10/05/2022 Active Creon [id number] units capsule TAKE 1 CAPSULE BY MOUTH [...] Description 09/24/2025 8:00 AM EST Office Visit [facility] ADULT D[facility]AL [address] [place] [address] Sunshine, Abbie [address] [place] [address] Health Maintenance Due Date Last Done Comments [...] Maintenance Insurance [facility] [place] ST[place] ADULT [address] [place] [id number] [place] [address] [id number] [place] [id number]
== END 2025-07-15 10:59 | disposition home or self-care (01) ==
LOC: HO.HMCH 10:03
PROVIDERS: PCP Internal Medicine; Visit Provider Internal Medicine
DX: Z00.00 Encounter for general adult medical examination without abnormal findings (principal); F33.0 Major depressive disorder, recurrent, mild; E87.6 Hypokalemia; Z23 Encounter for immunization

== ENCOUNTER 2025-07-15 10:03 | Outpatient (REF) | payer OTHER, SELFPAY ==
[2025-07-15 12:57] LABS: Potassium 3.8 mmol/L (3.3-5.1)
== END 2025-07-15 10:04 | disposition home or self-care (01) ==
LOC: HO.LAB 10:03
PROVIDERS: PCP Internal Medicine; Visit Provider Internal Medicine
DX: Z23 Encounter for immunization (principal); Z00.00 Encounter for general adult medical examination without abnormal findings; E87.6 Hypokalemia; F33.0 Major depressive disorder, recurrent, mild
CPT/HCPCS: 36415; 84132; 90471; 90677; 96127; 99212

== ENCOUNTER 2025-07-17 10:03 | Outpatient (AMB) | payer OTHER, SELFPAY ==
--- NOTE | 2025-07-17 10:53 | A.OFFVIS_ITS ---
Vital Signs 07/17/25 10:55 Height 5 ft 7 in Weight 186 lb 4.65 oz BMI 29.2 BP 129/74 Blood Pressure Location Lt brachial Position Sitting Pulse 89 Intake Visit Reasons: 6m Intake Note: Wilfred presents to in office follow up of abd bloating. CC: Patient states that he has been feeling a lot better. Webmethods Architect Required: Yes Accompanied by: Self / Same As Patient Allergies amlodipine Allergy (Intermediate, Verified 07/17/25 11:09) leg edema carisoprodol (From SOMA) Allergy (Intermediate, Verified 07/17/25 11:09) twitching jennyfer inhibitors Adverse Reaction (Intermediate, Verified 07/17/25 11:09) cough, anxiety HPI HPI 6m: Details: Assessment & Plan (1) GERD (gastroesophageal reflux disease): Code(s): K21.9 - Gastro-esophageal reflux disease without esophagitis Category: Medical Qualifiers: Esophagitis presence: esophagitis presence not specified Qualified Code(s): K21.9 - Gastro-esophageal reflux disease without esophagitis (2) Chronic idiopathic constipation: Code(s): K59.04 - Chronic idiopathic constipation Category: Medical (3) Abdominal bloating: Code(s): R14.0 - Abdominal distension (gaseous) Category: Medical (4) LLQ pain: Code(s): R10.32 - Left lower quadrant pain Category: Medical Plan IRISH #Tiffanie Live He continues on his omeprazole, bentyl, creon and simethicone. He started taking Alor supplement because he was feeling bloated and not moving his bowels as well. Also having early satiety not eating as much because its all sitting on top of the last meal. The aloe gave him diarrhea. With discussion, he is not taking the creon 2 tabs bid but qid and forgetting some. He also was taking the Trulance at night and it was getting me up in the middle of the night. Also forgetting simethicone as did not know it was for gas. I think if he changes his regimen it will solve many problems. I print all instructions in [place]. RoV next avaialb. Medications: Refilled dicyclomine 20 mg PO QID PRN 120 tabs 6RF abdominal pain 30 days docusate sodium (Colace) 100 mg PO DAILY 30 caps 6RF 30 days K59.01 - Slow transit constipation omeprazole 20 mg PO DAILY 30 caps 6RF 30 days plecanatide (Trulance) 3 mg PO DAILY 30 tabs 6RF 30 days K59.04 - Chronic idiopathic constipation [id number] 24,000-76,000 -120,000 unit (Creon) administer with meals and/or snacks 2 caps PO BID 120 caps 6RF 30 days K58.9 - Irritable bowel syndrome, unspecified simethicone after meals 180 mg PO QID 120 caps 6RF 30 days R14.0 - Abdominal distension (gaseous) Patient Instructions: Colon,Wilfred? Por favor, ajuste la forma de safia joceline medicamentos de la siguiente manera: 1. [place] Trulance a primera hora de la ma?savannah con un vaso lleno de agua. 2. [place] Creon 2 comprimidos dos veces al d?a en lugar de cuatro. 3. [place] simeticona con m?s frecuencia para la hinchaz?n, ya que ayuda a expulsar los gases. TODAYS VISIT [place] #Sidra [facility], [facility] Medical History (Updated 07/17/25 @ 11:21 by SAMY Guerra) Encounter for Medicare annual wellness exam Physical exam Chest cold Colon cancer screening Thoracic compression fracture Pure hypercholesterolemia EMILY (generalized anxiety disorder) Mild recurrent major depression HSV (herpes simplex virus) anogenital infection Tubular adenoma of colon Depression with anxiety Neck pain Umbilical hernia Scoliosis Erectile dysfunction Onychomycosis Essential hypertension Hypothyroidism Obesity GERD (gastroesophageal reflux disease) Surgical History Status post excision of lipoma Hx of colonoscopy (~2009) Family History Father HTN (hypertension) Mother HTN (hypertension) Hypercholesteremia Family/Other HTN (hypertension) Thyroid disease Diabetes FH: mental illness Daughter Thyroid disease Son No problems noted. Brother Substance abuse Sister Breast cancer Social History Household Members: None Housing: Apartment Alcohol intake: current Alcohol intake frequency: a few times a month Alcohol type: beer Patient Tobacco Use Status: Never used Tobacco e-Cigarette/Vaping Use: Never Used Second Hand Smoke Exposure: No service: No Current occupational status: disabled Cognitive needs: No Hearing needs: No Vision needs: Yes (Glasses) Review of Systems Const Denies fatigue, Denies fever(s), Denies night sweats, Denies poor appetite and Denies weight loss Eyes Details: glasses Reports requires corrective lenses ENT Reports Normal hearing present, Denies dental pain, Denies dysphagia, Denies hearing loss, Denies mouth pain, Denies odynophagia, Denies throat swelling, Denies tongue swelling and Reports other (Dentition adequate) Card Reports no additional complaints Resp Reports no additional complaints GI Details: Denies abdominal pain, Denies melena, Denies bloating, Denies hematochezia, Denies constipation, Denies GI cramping, Denies dysphagia, Denies excessive flatus, Denies early satiety, Denies heartburn, Denies diarrhea, Denies nausea, Denies odynophagia, Denies vomiting and Denies hematemesis Skin/Breast Denies pruritus, Denies lesions, Denies rash and Denies jaundice Neuro Reports Normal hearing present and Denies Abnormal speech present Endo Denies fatigue Aller/Immun Denies throat swelling and Denies tongue swelling Physical Exam Vital Signs: Last Vital Signs Pulse 89 07/17/25 10:55 BP 129/74 07/17/25 10:55 BMI result Body Mass Index 29.2 Const General: cooperative, no acute distress, well developed and well groomed Nutritional Appearance: average body habitus and well nourished Orientation/consciousness: oriented to person, oriented to place and oriented to time Limitations: language barrier HEENT Head: Yes normocephalic and Yes atraumatic Eyes General: appearance normal, both eyes and all related structures Pupils: Equal, round and reactive pupils present Neck Neck: Yes normal visual inspection and Yes no lymphadenopathy Thyroid: Thyroid normal Resp Effort & Inspection: normal respiratory effort and able to speak in complete sentences Auscultation: clear to auscultation bilaterally Cardio Rate: regular rate Rhythm: regular rhythm Heart sounds: Normal, physiologic split S2 sound present Peripheral pulses: radial pulses present and posterior tibial pulses present GI Inspection: No distended, No Abdominal panniculus present and Yes obesity Palpation (GI): Soft to palpation, nontender, no guarding, not rigid and No hepatosplenomegaly present Percussion: Yes normal to percussion Auscultation: normal bowel sounds Rectal Exam - Male: Yes deferred Skin General skin exam: no rashes or lesions noted, turgor normal, skin not dry, no jaundice, No spider nevi and no striae Rashes: no rashes Nails: normal Neuro General: oriented to person, oriented to place and oriented to time Cranial nerves: Yes Equal, round and reactive pupils present and Yes Normal hearing present Speech: No Abnormal speech present Extrem General: Yes normal to inspection, No clubbing, No cyanosis and No edema Psych Appearance: grossly normal and well kempt Mental Status: mental status grossly normal Speech and movement: Normal speech and movement present Affect: normal affect Attitude: cooperative Thought process: Normal thought process present and not confabulating Thought content: Normal thought content present Insight: Limited insight present (Psych) Judgement: Limited judgement present (Psych) Assessment & Plan Assessment & Plan (1) GERD (gastroesophageal reflux disease): Code(s): K21.9 - Gastro-esophageal reflux disease without esophagitis Category: Medical Qualifiers: Esophagitis presence: esophagitis presence not specified Qualified Code(s): K21.9 - Gastro-esophageal reflux disease without esophagitis (2) Chronic idiopathic constipation: Code(s): K59.04 - Chronic idiopathic constipation Category: Medical (3) Tubulovillous adenoma: Comment: 07/2023=4 TA's repeat in 3 years; 03/2021=TVA 8 mm sessile and a TA as well Code(s): D36.9 - Benign neoplasm, unspecified site Category: Medical Plan He continues on his omeprazole, bentyl, creon and simethicone. Was drinking an aloe supplement last visit. - The patient is a 64-year-old male presenting for follow-up regarding medication management and general well-being. - Adjustments were made to his medication regimen previously, resulting in improved symptoms. - The patient ceased taking any of the prescribed medications for several weeks due to feeling well, reporting no recurrence of symptoms. - Dietary modifications, particularly increased vegetable consumption, may have contributed to the improvement in symptoms. Return office visit in 3 months to assess whether his improvement as sustained Coding Level of Care Code Est Pt Level 3 (91294) Diagnoses Gastroesophageal reflux disease, unspecified whether esophagitis present K21.9 Esophagitis presence: esophagitis presence not specified Chronic idiopathic constipation K59.04 Tubulovillous adenoma D36.9
[2025-07-17 10:55] VITALS: BP 129/74; PULSE 89; BMI 29.2
--- OUTSIDE RECORDS SUMMARY | 2025-07-17 11:15 | XMS_ITS | Encounter Summary ---
Author Organization [employer] Address [address] [facility] [address] [place] [address] Care Team Providers Care Staffing Recruiter Name Role Phone Unavailable Primary Care Provider Unavailabl e Encounter Details Date Type Department Care Team (Latest Contact Info) Description 04/04/2019 Abstract [facility] CONVERSIONS Dental, Provider, DDS Social [...] Description 09/24/2025 8:00 AM EST Office Visit [facility] ADULT DENTAL [address] [place] [address] Abbie Gonsalez [address] [place] [address] documented as of this encounter Visit Diagnoses Not on filedocumented in this encounter
--- OUTSIDE RECORDS SUMMARY | 2025-07-17 11:15 | XMS_ITS | Patient Health Record ---
Author Organization [facility] Address [address] [facility] [address] Care Team Providers Care Home Staging Specialist Name Role Phone Kristofer TREADWELL, Cindy Primary Care Provider Unavail able Amari Fields Unavailable [phone] Reason For Referral No Information Medications Medication [...] Insured Coverage Start Date Coverage End Date [facility] SCO Claims [address] [place] [id number] Wilfred Bonilla Self - patient is the insured Medical (General) History Medical History History ICD Code Anxiety Arthritis Back,Hip,and Knee pain CAD (Cholesterol) Depression Fibromyalgia High blood pressure Reflux ( GERD) Sciatica thyroid Surgical History Surgery Date(Month/Year)
--- OUTSIDE RECORDS SUMMARY | 2025-07-17 11:15 | XMS_ITS | Encounter Summary ---
Author Organization [employer] Address [address] [facility] [address] [facility] [address] [place] [address] Care Team Providers Care Biofuels Operations Manager Name Role Phone Unavailable Primary Care Provider Unavailabl e Encounter Details Date Type Department Care Team (Latest Contact Info) Description 08/03/2021 Abstract [facility] CONVERSIONS Dental, Provider, DDS Social History Tobacco [...] Description 09/24/2025 8:00 AM EST Office Visit [facility] ADULT DENTAL [address] [place] [address] Abbie Gonsalez [address] [place] [address] documented as of this encounter Visit Diagnoses Not on filedocumented in this encounter
--- OUTSIDE RECORDS SUMMARY | 2025-07-17 11:15 | XMS_ITS | Clinical Summary ---
Author Organization [employer] Address [address] [place] [address] [address] [place] [address] Care Team Providers Care Wastewater Plant Operator Name Role Phone Unavailable Primary Care [...] mouth in the morning. 10/05/2022 Active Creon [id number] units capsule TAKE 1 CAPSULE BY MOUTH [...] Description 09/24/2025 8:00 AM EST Office Visit [facility] ADULT DENTAL [address] [place] [address] Sunshine, Abbie [address] [place] [address] Health Maintenance Due Date Last Done Comments [...] Maintenance Insurance [facility] [address] [place] [address] [id number] [place] [id number] [address] [place] [id number]
== END 2025-07-17 11:34 | disposition home or self-care (01) ==
LOC: HO.HGI 10:04
PROVIDERS: PCP Internal Medicine; Visit Provider Nurse Practitioner
DX: K21.9 Gastro-esophageal reflux disease without esophagitis (principal); K59.04 Chronic idiopathic constipation; D36.9 Benign neoplasm, unspecified site
CPT/HCPCS: 99213

== ENCOUNTER → 2025-07-17 10:03 | Outpatient (BNVA) | payer OTHER, SELFPAY | PROVIDERS: PCP Internal Medicine; Visit Provider Nurse Practitioner | DX: K21.9 Gastro-esophageal reflux disease without esophagitis (principal); K59.04 Chronic idiopathic constipation; D36.9 Benign neoplasm, unspecified site | CPT/HCPCS: 99212 ==

== ENCOUNTER 2025-10-07 09:04 | Outpatient (AMB) | payer OTHER, SELFPAY ==
[2025-10-07 09:11] VITALS: BP 160/90; PULSE 83; O2SAT 100; BMI 29.8
--- NOTE | 2025-10-07 09:11 | MHC.OFFVIS ---
Vital Signs 10/07/25 09:11 Height 5 ft 7 in Weight 190 lb 4.143 oz BMI 29.8 BP 160/90 H Blood Pressure Location Lt brachial Position Sitting Pulse 83 Pulse Source Pulse Oximeter Pulse Oximetry (%) 100 Oxygen Delivery Method Room Air Intake Visit Reasons: 3 Months Intake Note: Patient presents today for an OA follow up. Pleating Machine Operator Name: [id number] Information Interpreted: non-clinical & clinical Accompanied by: Self / Same As Patient Allergies amlodipine Allergy (Intermediate, Verified 10/07/25 09:11) leg edema carisoprodol (From SOMA) Allergy (Intermediate, Verified 10/07/25 09:11) twitching jennyfer inhibitors Adverse Reaction (Intermediate, Verified 10/07/25 09:11) cough, anxiety HPI HPI 3 Months: Details: He did not go to PT because he had to reschedule the appointment. He did not accept the rescheduled appointment 1.5-2 months away. Tylenol 1300mg once helps. He does not medicate when he drinks beers socially. Lidocaine patch was uneffective. [facility] Medical History Encounter for Medicare annual wellness exam Physical exam Chest cold Colon cancer screening Thoracic compression fracture Pure hypercholesterolemia EMILY (generalized anxiety disorder) Mild recurrent major depression HSV (herpes simplex virus) anogenital infection Tubular adenoma of colon Depression with anxiety Neck pain Umbilical hernia Scoliosis Erectile dysfunction Onychomycosis Essential hypertension Hypothyroidism Obesity GERD (gastroesophageal reflux disease) Surgical History Status post excision of lipoma Hx of colonoscopy (~2009) Family History Father HTN (hypertension) Mother HTN (hypertension) Hypercholesteremia Family/Other HTN (hypertension) Thyroid disease Diabetes FH: mental illness Daughter Thyroid disease Son No problems noted. Brother Substance abuse Sister Breast cancer Social History Household Members: None Housing: Apartment Alcohol intake: current Alcohol intake frequency: a few times a month Alcohol type: beer Patient Tobacco Use Status: Never used Tobacco e-Cigarette/Vaping Use: Never Used Second Hand Smoke Exposure: No service: No Current occupational status: disabled Cognitive needs: No Hearing needs: No Vision needs: Yes (Glasses) Physical Exam Vital Signs: Last Vital Signs Pulse 83 10/07/25 09:11 BP 160/90 H 10/07/25 09:11 Pulse Ox 100 10/07/25 09:11 Oxygen Delivery Method Room Air 10/07/25 09:11 BMI result Body Mass Index 29.8 Const Other: General: Comfortable Skin: No lesions seen MSK: Tender to palpate paraspinal muscles of cervical spine and trapezius. No spinous process tenderness of cervical or thoracic spine. He has localized tenderness to lower lumbar spinous process, and paraspinal muscles of lumbar spine.. Normal range of motion of cervical spine. Normal range of motion of upper extremity but left abduction is painful. Limited full lumbar flexion. No synovitis. Assessment & Plan Assessment & Plan (1) Lumbar back pain with radiculopathy affecting left lower extremity: Comment: Uncontrolled. He has myofascial strain contributing to his lower back pain. Personally reviewed x-ray with patient, which reveal multilevel degenerative changes. He also has straightening of his spine consistent with myofascial strain contributing to his pain. Baclofen q.h.s., Tylenol 1300 mg once and heating has been helpful. Code(s): M54.16 - Radiculopathy, lumbar region Category: Medical Plan: Continue to apply heat to back. Increase frequency to twice a day 20-30 minutes each time. COntinue tylenol 1300mg increase frequency to BID or TID PRN pain. He will avoid tylenol on the weekend when he drinks alcohol. Continue Baclofen 5 mg q.h.s. PRN pain. Avoid driving after taking muscle relaxer. Discussed side effects of long-term muscle relaxer use PT ordered last visit. Requested him to schedule appt. Return to clinic in 3 months (2) Strain of right trapezius muscle: Comment: Chronic. Uncontrolled. Code(s): S46.811A - Strain of other muscles, fascia and tendons at shoulder and upper arm level, right arm, initial encounter Category: Medical Plan: PT ordered with myofascial release and TENs unit trial last visit. Requested him to schedule appt Baclofen 5 mg q.h.s. PRN pain Apply heat to neck twice a day Return to clinic in 3 months (3) Left knee pain: Comment: No clinical signs of inflammatory arthritis. Rheumatology history: Joint fluid from the left knee 12/2015 WBC 3930 suggestive of inflammatory process without crystals. Patient followed with Ortho for left knee OA, last injection February 2022. His left knee pain and joint swelling have been well controlled. Rheumatoid factor, CCP and HLA B27 are negative. Code(s): M25.562 - Pain in left knee Category: Medical Plan: Monitor clinically Medications: Refilled baclofen Jamaican label 5 mg PO BEDTIME PRN 30 tabs 1RF muscle spasm Coding Level of Care Code Est Pt Level 4 (66192) Add On Problem Visit Only Diagnoses Lumbar back pain with radiculopathy affecting left lower extremity M54.16 Strain of right trapezius muscle S46.811A Left knee pain M25.562
--- OUTSIDE RECORDS SUMMARY | 2025-10-07 09:55 | XMS_ITS | Clinical Summary ---
Author Organization [employer] Address [address] [place] [address] [address] [place] [address] Care Team Providers Care Is Architect Name Role Phone Unavailable Primary Care Provider [...] mouth in the morning. 10/05/2022 Active Creon 28150-15533 units capsule TAKE 1 CAPSULE BY MOUTH [...] of 2) 2009 COVID-19 Vaccine (3 - season) 2025 02/02/2021, 01/05/2021 Influenza Vaccine (#1) 2025 , 08/10/2022, 01/01/2020, Additional history exists Dental Oral Exam 09/13/2025 03/12/2025, , 05/10/2022 Dental Prophylaxis 09/13/2025 03/12/2025, 1 11/04/2022, 01/10/2023 Tobacco Screening 03/12/2026 03/12/2025 Dental X-Ray: Bitewings 03/13/2026 03/12/20 25, 09/04/2023, 11/18/2019 DTaP/Tdap/Td Vaccines (2 - Td [...] Relevant to Health Maintenance Insurance [facility]AL - [facility] [address] [place] [id number] [place] [id number] [address] [place] [id number] [address] [place] [id number]
--- OUTSIDE RECORDS SUMMARY | 2025-10-07 09:55 | XMS_ITS | Patient Health Record ---
Author Organization [facility] Address [address] [place] [address] Care Team Providers Care Airport Ramp Supervisor Name Role Phone Kristofer TREADWELL, Cindy Primary Care Provider Unavail able Amari Fields Unavailable [phone] Reason For Referral No Information Medications Medication [...] Insured Coverage Start Date Coverage End Date [facility] SCO Claims [address] [place] [address] [id number] Wilfred Bonilla Self - patient is the insured Medical (General) History Medical History History ICD Code Anxiety Arthritis Back,Hip,and Knee pain CAD (Cholesterol) Depression Fibromyalgia High blood pressure Reflux ( GERD) Sciatica thyroid Surgical History Surgery Date(Month/Year)
--- OUTSIDE RECORDS SUMMARY | 2025-10-07 09:56 | XMS_ITS | Encounter Summary ---
Author Organization [employer] Address [address] [facility] [address] [place] [address] Care Team Providers Care Cnc Supervisor Name Role Phone Unavailable Primary Care Provider Unavailabl e Encounter Details Date Type Department Care Team (Latest Contact Info) Description 04/04/2019 Abstract [facility] CONVERSIONS Dental, Provider, DDS Social History [...]
--- OUTSIDE RECORDS SUMMARY | 2025-10-07 09:56 | XMS_ITS | Encounter Summary ---
Author Organization [employer] Address [address] [facility] [address]t [place] [address] Care Team Providers Care Fish Agent Name Role Phone Unavailable Primary Care Provider Unavailabl e Encounter Details Date Type Department Care Team (Latest Contact Info) Description 08/03/2021 Abstract [facility] CONVERSIONS Dental, Provider, DDS Social [...]
== END 2025-10-07 09:47 | disposition home or self-care (01) ==
LOC: HO.RHES 09:05
PROVIDERS: PCP Internal Medicine; Visit Provider Internal Medicine Rheumatology
DX: M54.16 Radiculopathy, lumbar region (principal); S46.811A Strain of other muscles, fascia and tendons at shoulder and upper arm level, right arm, initial encounter; M25.562 Pain in left knee
CPT/HCPCS: 99214; G2211

== ENCOUNTER → 2025-10-07 09:04 | Outpatient (BNVA) | payer OTHER, SELFPAY | PROVIDERS: PCP Internal Medicine; Visit Provider Internal Medicine Rheumatology | DX: S46.811A Strain of other muscles, fascia and tendons at shoulder and upper arm level, right arm, initial encounter (principal); M54.16 Radiculopathy, lumbar region; M25.562 Pain in left knee; X58.XXXA Exposure to other specified factors, initial encounter; Y92.9 Unspecified place or not applicable; Y93.9 Activity, unspecified; Y99.9 Unspecified external cause status | CPT/HCPCS: 99212 ==